=== PATIENT | female | born 1975 | race Hispanic/Latino ===

== ENCOUNTER 2025-02-16 17:09 | Emergency (ER) | payer SELFPAY ==
[2025-02-16 17:09] VITALS: BP 134/91; PULSE 93; RESP 18; TEMP 36.8; O2SAT 99; BMI 32.4
--- NOTE | 2025-02-16 17:43 | CT_ITS ---
PROCEDURE: ABDOMEN/PELVIS W IV CONT ONLY 02/16/2025 REASON FOR EXAM: ABDOMINAL PAIN TECHNIQUE: Procedure Code: [id number] Modality: CT Procedure: ABDOMEN/PELVIS W IV CONT ONLY Coronal and Sagittal reconstruction series were provided. CONTRAST: 100 mL of Isovue 370 One or more dose reduction techniques were used (e.g., Automated exposure control, adjustment of the mA and/or kV according to patient size, use of iterative reconstruction technique. RADIATION DOSE SUMMARY: DLP: 1220 mGycm COMPARISON: None FINDINGS: Limited sections of the lung bases demonstrate no focal pulmonary mass or consolidations. The liver, spleen, pancreas, and both adrenal glands demonstrate no acute findings. The gallbladder is surgically removed Tiny hiatal hernia; otherwise stomach is unremarkable.. The small bowel loops are not dilated. The appendix is normal. No colonic obstruction. There is no free air or significant free fluid. The kidneys are unremarkable. The urinary bladder is distended. The pelvic structures are intact. Right ovarian cyst measuring 1.7 x 1.5 cm. No significant lymphadenopathy. The aorta and IVC demonstrate no acute findings. Visualized osseous structures demonstrate no acute abnormality. CT/Abdomen/Pelvis W IV Cont ONLY IMPRESSION: No acute intra-abdominal process. Reading Location: -[id number]
--- NOTE | 2025-02-16 17:44 | EDS_ITS ---
HPI HPI - GI History of Present Illness Chief Complaint: Abd Pain Detail of Chief Complaint: Abdominal pain and dizziness Informant: patient Narrative Narrative: Patient presents with abdominal pain and dizziness. The abdominal pains been ongoing for about a year. She has not seen anybody for this. She has had prior cholecystectomy. The pain is in the upper abdomen anytime she eats or drinks. This morning she developed dizziness that she describes as a spinning sensation with nausea and vomiting and vomit about 8 times. Denies fever. Denies diarrhea. Denies falls or head injuries. She has a mild headache. No prior history of vertigo or dizziness like this. Patient speaks very little [place] but has person with her that translates. PFSH PFS Home Medications ?Medication ?Instructions ?Recorded ?Last Taken ?Type meclizine 25 mg tablet 25 mg PO TID PRN dizziness # 20 tabs 02/16/25 Unknown Rx omeprazole 40 mg capsule,delayed 40 mg PO DAILY #14 ca ps 02/16/25 Unknown Rx release Allergy/AdvReac Type Severity Reaction Status Date / Time No Known Allergies Allergy Verified 02/16/25 17:11 Surgical History (Updated 02/16/25 @ 18:11 by Kareem Brown) History of cholecystectomy Social History Smoking Status: Never smoker ROS ROS ED Review of Systems ROS Unobtainable: other Constitutional Constitutional ED: Reports lethargy; Denies chills, fever(s), sweats or weight loss Eyes Eyes: Denies blurry vision, change in vision or diplopia ENT ENT ED: Denies rhinorrhea or sore throat Cardiovascular Cardiovascular: Reports chest pain; Denies orthopnea or racing heartbeat Respiratory/Chest Respiratory/Chest: Denies cough, dyspnea, dyspnea on exertion, orthopnea or sputum Gastrointestinal Gastrointestinal: Reports abdominal pain, nausea and vomiting; Denies diarrhea Genitourinary Genitourinary ED: Denies dysuria, hematuria or urinary frequency Musculoskeletal Musculoskeletal: Denies arthralgias, back pain, myalgias or neck pain Integumentary Denies abscess, Abrasions or rash Neurologic Neurologic: Reports other Details: Dizziness ; Denies headache(s) or weakness Psychiatric Psychiatric: Denies anxiety, depression or suicidal thoughts Endocrine Endocrinology: Denies polydipsia, polyphagia or polyuria Hematologic/Lymphatic Hematologic/Lymphatic: Denies easy bleeding, easy bruising or lymphadenopathy Allergic/Immunologic Allergic/Immunologic ED: Denies mouth swelling, tongue swelling or urticaria EXAM Physical Exam Const Vital Signs: 02/16/25 17:09 02/16/25 19:09 02/16/25 21:00 Temperature 98.3 F Temperature Source Oral Pulse Rate 93 73 73 Respiratory Rate 18 18 16 Blood Pressure 134/91 H 130/62 H Blood Pressure Mean 105 84 Pulse Ox 99 99 99 Oxygen Delivery Method Room Air Room Air Positive well nourished and well developed General Appearance ED: well developed and NAD HEENT Reports TM's clear and moist mucous membranes normocephalic and atraumatic; Negative for trauma or tenderness Tympanic Membrane ED: Yes TM's clear Eyes PERRL and EOMs intact bilaterally General Eye ED: Negative for pale conjunctiva or scleral icterus Neck no lymphadenopathy, supple and no JVD General: Negative for tenderness Chest Wall inspection of chest normal and palpation of chest normal Chest: Negative for tenderness Resp normal respiratory effort and clear to auscultation bilaterally Effort and Inspection: Negative for respiratory distress or pain with movement Auscultation: Negative for rhonchi, wheezes or diminished lung sounds Cardio regular rate, regular rhythm, S1 normal heart sound, S2 normal heart sound and no murmurs Peripheral Pulses: pulses 2+ throughout GI normal to inspection, nondistended, normoactive bowel sounds, soft to palpation, non-distended and no masses GI Narrative: Tenderness to palpation over the epigastric region with some guarding. There is no rebound, rigidity, or peritoneal signs. No mass palpated. Back/Spine no CVA tenderness and no thoracic nor lumbar tenderness Extremity normal to inspection General Extremety ED: Negative for edema General Extremity: Negative for edema Neuro oriented x3, CN's II-XII intact bilaterally, no sensory deficits noted and gait normal Neuro Narrative: Positive Hallpike maneuver with head turn to the left with significant nystagmus. She became symptomatic with nausea and dry heaves Sensorium / Orientation: awake, alert, oriented to person, oriented to place and oriented to time Motor Exam: strength 5/5 throughout and strength abnormal Psych mental status grossly normal Skin no rashes or lesions noted and no wounds MDM MDM MDM Narrative Medical decision making narrative: Patient presents with 2 complaints 1 of abdominal pain ongoing for about a year. Also complains of dizziness that started today with head position. She has had some nausea with this. Clinically she looks well. Normal neurologic exam although she is positive on Hallpike maneuver with nystagmus. IV line established. CBC with differential obtained showing a 7.8 with hemoglobin 10.9 and platelet count of 518. Chemistries unremarkable. LFTs were normal. Lipase normal. Troponin less than 6. Urinalysis was normal. CT scan of the abdomen pelvis showed no acute process. While in department she received Antivert and Zofran and her vertigo resolved. At this point discussed results with patient and will refer to GI for follow-up. Will start on Prevacid. Will write a prescription for Antivert and discharged home in stable condition Lab Data Attestation: I reviewed the patient's lab results. Labs: Laboratory Results - last 24 hr 02/16/25 02/16/25 02/16/25 17:55 19:28 19:55 WBC 7.8 RBC 4.37 Hgb 10.9 L Hct 34.2 L MCV 78.3 L MCH 24.9 L MCHC 31.9 L RDW Std Deviation 41.5 RDW Coeff of Tiffanie 14.6 Plt Count 318 MPV 8.7 Immature Gran % (Auto) 0.400 Neut % (Auto) 71.0 H Lymph % (Auto) 23.6 [place] % (Auto) 4.5 Eos % (Auto) 0.1 Baso % (Auto) 0.4 Absolute Neuts (auto) 5.6 Absolute Lymphs (auto) 1.85 Nucleated RBC % 0 Sodium 138 Potassium 3.7 Chloride 103 Carbon Dioxide 24.2 Anion Gap 10 BUN 15 Creatinine 0.66 L Estim Creat Clear Calc 119.85 Est GFR (MDRD) Non-Af 109 BUN/Creatinine Ratio 22.1 H Glucose 104 H Lactic Acid < 1.0 Calcium 8.9 Total Bilirubin 0.76 AST 20 ALT 18 Alkaline Phosphatase 81 Troponin T High Sens < 6 Troponin T Hi Sens 2 Hr < 6 Total Protein 7.3 Albumin 4.2 Globulin 3.0 Albumin/Globulin Ratio 1.4 Lipase 33 Urine Color Yellow Urine Clarity Clear Urine pH 7.0 Ur Specific [place] 1.010 Urine Protein 15 H Urine Glucose (UA) Normal Urine Ketones 15 H Urine Occult Blood Negative Urine Nitrite Negative Urine Bilirubin Negative Urine Urobilinogen Normal Ur Leukocyte Esterase Negative Urine RBC 0 SEEN Urine WBC 0-5 SEEN Ur Squamous Epith Cells 0-5 SEEN Urine Bacteria 0 SEEN Urine Mucus 0 SEEN Radiography Diagnostic Testing: Clinical Impression(s) from Imaging Studies Abdomen/Pelvis CT 02/16/25 17:43 IMPRESSION: No acute intra-abdominal process. Reading [id number] Triage Chief Complaint: Abd Pain ED Provider: Omega Sparrow Dx/Rx/DC Orders Clinical Impression: Abdominal pain, BPV (benign positional vertigo) Instructions: ED Abdominal Pain Unkn Cause Fem, ED BPV Vertigo Prescriptions: New omeprazole 40 mg capsule,delayed release(DR/EC) 40 mg PO DAILY Qty: 14 0RF meclizine 25 mg tablet 25 mg PO TID PRN (Reason: dizziness) Qty: 20 0RF Primary Care Provider: Care Physician,No Primary Referrals: Gautam Brown MD [Med Staff - Shuttle Truck Driver] - 5-7 Days Abran Munoz DO [Med Staff - Active Staff] - 5-7 Days Care Physician,No Primary [Primary Care Provider] - Print Language: [place] Disposition Disposition: Home, Self Care
[2025-02-16 18:02] LABS: Hematocrit 34.2 % (37-47); Hemoglobin 10.9 g/dL (12.0-15.0); Immature Granulocytes Count 0.030 X10^3/uL (0.0-0.0); Mean Corp Hgb Conc 31.9 g/dL (32-36); Mean Corpuscular Volume 78.3 fL (81-99); Mean Platelet Vol. 8.7 fl (6.2-12.0); NRBC Flagged by Analyzer 0 % (0-5); Platelet Count 318 K/mm3 (150-450); RBC Distribution Width CV 14.6 % (11.6-14.6); RBC Distribution Width SD 41.5 fl (35.1-43.9); Red Blood Count 4.37 M/mm3 (4.2-5.4); White Blood Count 7.8 K/mm3 (4.4-11.0)
[2025-02-16] MEDS: 0.9% Normal Saline (1000mL) 1,000 ML 125 ML IV (18:12)
[2025-02-16 18:21] LABS: AST(SGOT) 20 U/L (<=31); Alanine Aminotransfer ALT/SGPT 18 U/L (<=34); Albumin, Serum 4.2 g/dL (3.5-5.0); Alkaline Phosphatase 81 U/L (35-104); Anion Gap 10 (5-15); BUN 15 mg/dL (4-19); BUN/Creat Ratio 22.1 RATIO (10-20); Calcium,Total 8.9 mg/dL (7.6-11.0); Carbon Dioxide 24.2 mmol/L (21.0-32.0); Chloride 103 mmol/L (98-108); Estimated Creatinine Clearance 119.85 ml/min (50-250); Globulin 3.0 g/dL (2.2-4.2); Glucose 104 mg/dL (70-99); Lipase 33 U/L (13-75); Potassium 3.7 mmol/L (3.3-5.1); Troponin T High Sensitivity < 6 ng/L (<=14)
[2025-02-16 19:09] VITALS: PULSE 73; RESP 18; O2SAT 99
[2025-02-16 19:35] LABS: Mucous, Urine 0 SEEN /hpf (<or=2+); Red Blood Cells-Urine 0 SEEN /hpf (0-5)
[2025-02-16 19:36] LABS: Color, Urine Yellow (Yellow); Glucose, Dipstick Normal (Normal); Ketone-Dipstick 15 mg/dl (Negative); Leukocyte Esterase-Dipstick Negative /ul (Negative); Nitrite-Dipstick Negative (Negative); Occult Blood-Urine Negative /ul (Negative); Protein-Dipstick 15 mg/dl (Negative); Specific Gravity, Urine 1.010 (1.002-1.030); Urine Bilirubin Dipstick Negative (Negative)
[2025-02-16 19:48] LABS: Squamous Epithelial Cells - UA 0-5 SEEN /hpf (5-10)
[2025-02-16 20:44] LABS: Troponin T High Sens 2 HR < 6 ng/L (<=14)
[2025-02-16 21:00] VITALS: BP 130/62; PULSE 73; RESP 16; O2SAT 99
[2025-02-16 21:43] VITALS: BP 108/74; PULSE 71; RESP 16; TEMP 36.6; O2SAT 99
== END 2025-02-16 21:44 | disposition home or self-care (01) ==
PROVIDERS: Emergency Provider Emergency Medicine; Visit Provider Emergency Medicine
DX: R10.9 Unspecified abdominal pain (principal); Z90.49 Acquired absence of other specified parts of digestive tract; R07.9 Chest pain, unspecified; H81.10 Benign paroxysmal vertigo, unspecified ear
CPT/HCPCS: 36415; 74177; 80053; 81001; 83605; 83690; 84484; 85025; 93005; 96361; 96374; 99283; Q9967; A4216; J2405

== ENCOUNTER 2025-03-31 06:20 | Day surgery (SDC) | payer SELFPAY ==
[2025-03-31] VITALS (7 sets, daily range): BP systolic 95–106; BP diastolic 71–75; PULSE 60–71; RESP 16–18; TEMP 36.4–36.7; O2SAT 98–100; BMI 31.3
--- OUTSIDE RECORDS SUMMARY | 2025-03-31 06:27 | XMS RPT_ITS | CCD ---
Author Organization [facility] Care Team Providers Care Signal Intelligence Analyst Name Role Phone Unavailable Primary Care Provider Unavailjeanne e Kiara SURVEY WORKER.ENVIRONMENTAL MONITORING TECHNICIAN, Js Primary Care Provider Kiara SURVEY WORKER.Js REYES Primary Care Provider ERIK AUGUSTIN Attending Unavayamilka labcrystal AUGUSTIN, ERIK NEMESIO Primary Care Unavai JS Ohara Referring Unavailable KNRJ, JS Primary Care Unavailable JS CRAIG Attending Unavailable JOHN, SPOKANE NEMESIO Referring Unavai lable JOHN, [facility] Primary Care Unavai labMAYRA Finney Attending Unavailable JOHN, ERIK NEMESIO Referring Unavai lable JOHN, SPOKANE NEMESIO Primary Care Unavai lable JS CRAIG Referring Unavailable KNRJ, JS Primary Care Unavailable KNJS DE LA ROSA Referring Unavailable KNOBLE, JS Primary Care Unavailable John DO, Cook Nemesio Primary Care Provid er Kiara SURVEY WORKER.Js REYES Unavailable Dr. Omega Sparrow DO Emergency Provider [phone] Care Physician, No Primary Primary Care Provider Unavailable Dr. Omega Sparrow DO Attending Physician Dr. Omega Sparrow DO Emergency Department Physici an Care Physician, No Primary Primary Care Physicia n Unavailable Care Physician, No Primary Referring Provider Un available Rivka Rondon Attending Physician Rivka Pedraza Attending Unavailable Care Physician, No Primary Primary Care Unava ilable Care Physician, No Primary Referring Unava ilable Care Physician, No Primary Primary Care Unava ilable Tammy, Abran Attending Unavailable Omega Sparrow Attending Unavailable Care Physician, No Primary Primary Care Unava ilable Medications Current Medications Medication Drug Class(es) Dates Sig (Normalized) Sig (Original) meclizine hydrochloride 25 mg oral tablet (2 sources) Antiemetic Start: 02-16-2025 take 1 tablet by mouth three times daily as needed for dizziness Naproxen (2 sources) Nonsteroidal Anti-inflammatory Drug NAPROXEN ORAL Take by mouth. Active omeprazole 40 mg delayed release oral capsule (8 sources) Proton Pump Inhibitor Start: 02-23-2024 End: 02-22-2025 take 1 capsule by mouth once daily Start: 06-20-2023 take 1 capsule by mo uth once daily before breakfast omeprazole (PRILOSEC) 20 mg capsule Indications: Gastroesophageal reflux disease without esophagitis Take 1 capsule by mouth daily before breakfast. 1/2 hr before meal. 90 capsule 06/20/2023 Active Comment on above: Take 1 capsule by mo uth daily before breakfast. 1/2 hr before meal. predniSONE 10 mg oral tablet (2 sources) Start: 02-23-2024 predniSONE (DELTASONE) 10 mg tablet Indications: Spinal stenosis of lumbar region without neurogenic claudication Take 3 tablets by mouth for 3 days, then take 2 tablets by mouth for 3 days, then take 1 tablet by mouth for 3 days. 18 tablet 02/23/2024 Active Completed/Discontinued Medications Medication Drug Class(es) Dates Sig (Normalized) Sig (Original) traMADol hydrochloride 50 mg oral tablet (1 source) Opioid Agonist Start: 02-23-2024 End: 03-01-2024 take 1 tablet by mouth every six hours as needed for pain traMADol (ULTRAM) 50 mg tablet Indications: DDD (degenerative disc disease), lumbar , Spinal stenosis of lumbar region without neurogenic claudication Take 1 tablet by mouth every 6 hours as needed for pain for up to 7 days. 20 tablet 02/23/2024 03/01/2024 Problems Active Problems Problem Classification Problem Date Documented Da te Episodic/Chronic Abdominal pain (3 sources) Abdominal pain; Translations: [Unspecified abdominal pain] Onset: 03-28-2025 02-16-2025 Episodic Conditions associated with dizziness or vertigo (2 sources) Benign paroxysmal positional vertigo; Translations: [Benign paroxysmal vertigo, unspecified ear] 02-16-2025 Episodic Esophageal disorders (5 sources) Gastro-esophageal reflux disease without esophagitis; Translations: [Gastroesophageal reflux disease without esophagitis] Onset: 06-20-2023 03-02-2024 Chronic Headache; including migraine (6 sources) Menstrual migraine; Translations: [Menstrual migraine, not intractable, without status migrainosus] Onset: 06-05-2018 06-05-2018 Chronic Nausea and vomiting (2 sources) Nausea; Translations: [Nausea] 03-04-2025 Episodic Other connective tissue disease (1 source) Pain of bilateral hands; Translations: [Pain in right hand] 01-17-2023 Episodic Other gastrointestinal disorders (1 source) Dysphagia, oral phase; Translations: [Oral phase dysphagia] Onset: 02-23-2024 Episodic Other gastrointestinal disorders (1 source) Oral phase dysphagia; Translations: [Dysphagia, oral phase] 02-23-2024 Episodic Other gastrointestinal disorders (2 sources) Heartburn; Translations: [Heartburn] 03-04-2025 Episodic Other nervous system disorders (1 source) Paresthesia of lower extremity; Translations: [Anesthesia of skin] 06-20-2023 Episodic Other nervous system disorders (1 source) Paresthesia of upper limb; Translations: [Anesthesia of skin] 06-20-2023 Episodic Other nutritional; endocrine; and metabolic disorders (1 source) Obesity, unspecified; Translations: [Class 1 obesity with body mass index (BMI) of 32.0 to 32.9 in adult, unspecified obesity type, unspecified whether serious comorbidity present] Onset: 02-23-2024 Chronic Other nutritional; endocrine; and metabolic disorders (1 source) Body mass index (BMI) 32.0-32.9, adult; Translations: [Class 1 obesity with body mass index (BMI) of 32.0 to 32.9 in adult, unspecified obesity type, unspecified whether serious comorbidity present] Onset: 02-23-2024 Chronic Other nutritional; endocrine; and metabolic disorders (1 source) Obesity; Translations: [Obesity, unspecified] 02-23-2024 Chronic Other screening for suspected conditions (not mental disorders or infectious disease) (18 sources) Patient encounter status; Translations: [Encounter for screening mammogram for malignant neoplasm of breast] Onset: 06-20-2023 06-25-2023 Episodic Spondylosis; intervertebral disc disorders; other back problems (4 sources) Other intervertebral disc degeneration, lumbar region; Translations: [Degeneration of lumbar intervertebral disc] Onset: 02-23-2024 03-02-2024 Chronic Spondylosis; intervertebral disc disorders; other back problems (16 sources) Chronic low back pain; Translations: [Lumbago with sciatica, right side] Onset: 03-31-2018 03-31-2018 Episodic Varicose veins of lower extremity (5 sources) Pain co-occurrent and due to varicose veins of right leg; Translations: [Varicose veins of right lower extremity with pain] Onset: 02-23-2024 01-17-2023 Episodic Past or Other Problems Problem Classification Problem Date Documented Da te Episodic/Chronic Immunizations and screening for infectious disease (1 source) Encounter for immunization; Translations: [Encounter for immunization] Onset: 06-20-2023 Episodic Other aftercare (1 source) Other assessment services manager (current) drug therapy; Translations: [Medication management] Onset: 06-20-2023 Episodic Other nervous system disorders (2 sources) Anesthesia of skin; Translations: [Numbness and tingling of both legs] Onset: 06-20-2023 Episodic Other nervous system disorders (2 sources) Paresthesia of skin; Translations: [Numbness and tingling of both legs] Onset: 06-20-2023 Episodic Results Test Name Value Interpretation Reference Range Facility Gastroenterology Visit Repor ton 03-04-2025 Gastroenterology Visit Report [facility] [address] [place] [address] OFFICE VISIT Date of Service: 03/04/25 MR#: [id number] Acct: [id number] Name: JERROD CUMMINGS Rep #: [id number] : 1975 Provider: KATHLEEN Toussaint Age/Sex: 49/F Location: [facility] Status: Signed Intake Vital Signs 02/16/25 17:09 Height 5 ft 6 in Intake Visit Reasons: [facility] ER 02/16 ABD PAIN Chief Complaint: Epigastric pain Allergies No Known Allergies Allergy (Verified 03/04/25 11:49) Medications ???Medication ???Instructions ???Recorded ???Confirmed ???Type meclizine 25 mg tablet 25 mg PO TID PRN dizziness #20 tab s 02/16/25 03/04/25 Rx omeprazole 40 mg capsule,delayed 40 mg PO DAILY #14 caps 02/16/25 0 03/04/25 Rx release Nurse's Note: Nausea mostly after breakfast and constipated sometimes. [facility] Surgical History (Updated 02/17/25 @ 10:24 by Carlie Castrejon) History of cholecystectomy Social History (System 02/17/25 @ 10:24 by Carlie Castrejon) Smoking Status: Never smoker HPI HPI Chief Complaint: Epigastric pain Details: JERROD NUNO, is a 49 F who presents to the office today for establishment. [facility] ED 02.16.25 for abdominal pain and dizziness for a year. Pain is worse with eating or drinking. CBC and CMP unremarkable. LFTs and lipase normal. CT abdomen pelvis with no acute process. Discharged and started on Prevacid. OV 03.04.25 patient continues to have epigastric pain that is daily. Pain is burning and is not worse with oral intake. Patient does not feel that omeprazole has been helpful. Nausea has improved. She has never had an EGD or colonoscopy. Patient was scheduled for screening colonoscopy at 1 point but no one told her to the prep so she could have it done. ROS Const Constitutional: No anorexia, fatigue, fever(s), weight change or sleep problems Eyes Eyes: No change in vision ENT ENT: No abnormal hearing, difficulty swallowing, mouth lesions, tongue swelling or throat swelling Resp Respiratory: No cough or shortness of breath Cardio Cardiology: No chest pain at rest, chest pain with exertion, shortness of breath or dyspnea on exertion Gastro GI: Positive for abdominal pain, heartburn and nausea/dyspepsia; No difficulty swallowing Genitourinary-Female : No difficulty urinating or burning urination Musc Musculoskeletal: No joint pain, joint swelling, muscle weakness or decreased muscle mass Skin Skin: No hair loss in leg, yellowing of the eye, itchy eyes, rash, skin ulcer or skin swelling Neuro Neurology: No abnormal hearing, abnormal movements, confusion, unsteady gait/balance or memory loss Psych Psychiatric: No anxiety, No confusion and No memory loss Endo Endocrine: No fatigue or weight change Aller/Imm Allergy/Immunologic: No itchy eyes, throat swelling or tongue swelling Lalito/Lymp Hematologic/Lymphati c: No easy bleeding, easy bruising or enlarged lymph nodes Exam Const General: cooperative, healthy appearing and comfortable Nutritional Appearance: average body habitus Orientation: alert [facility] Head: normal to inspection Ears: hearing grossly normal bilaterally Nose: external nose normal Eyes General: appearance normal, both eyes and all related structures Neck Neck: normal visual inspection Chest Chest palpation inspection: normal inspection of the chest Resp Effort Inspection: normal respiratory effort Cardio Rate: regular rate Rhythm: regular rhythm GI Inspection: normal to inspection Auscultation: normal bowel sounds Palpation: soft and nontender Assessment and Plan Assessment and Plan (1) Heartburn: Status: Acute Plan: jerrod is a 49-year-old Emirati-speaking patient here today for evaluation of epigastric pain. Patient presented to [facility] ED for epigastric pain and vertigo. Workup was largely unremarkable. CT abdomen pelvis without acute processes. She was started on omeprazole. Patient continues to have epigastric pain that is burning and constant. She notes that prior to her ED visit she had seen other doctors who treated her with medications for her pain. Medications have not been helpful. Patient will undergo EGD to evaluate her upper GI tract. Patient has never had a screening colonoscopy. She notes that she was scheduled for 1 in the past but did not know she had to do a prep so they could not do it. She was scheduled for both of these procedures today. - EGD - Colonoscopy - Follow-up after procedures (2) Nausea: Status: Acute (3) Encounter for screening colonoscopy: Status: Acute Coding Level of Care Code Off vis,new,level 3 Diagnoses Heartburn R12 Nausea R11.0 Encounter for screening colonoscopy Z12.11 03/04/25 1221 Date (more content not included)... Normal [facility] Abdomen/Pelvis W IV Cont ONL Yon 02-16-2025 Abdomen/Pelvis W IV Cont ONLY [facility] Services [address] [place] [address] [id number] Abdomen/Pelvis W IV Cont ONLY MR#: [id number] Acct: [id number] Name: JERROD CUMMINGS Rep #: [id number] : 1975 F 49 From: Shingo Kihira M D PCP: Care Physician,No Primary Status: DEP ER Study: Abdomen/Pelvis W IV Cont ONLY Date of Exam: Exam# [id number] Ordering Dr: Omega Sparrow DO PROCEDURE: ABDOMEN/PELVIS W IV CONT ONLY 02/16/2025 REASON FOR EXAM: ABDOMINAL PAIN TECHNIQUE: Procedure Code: [id number] Modality: CT Procedure: ABDOMEN/PELVIS W IV CONT ONLY Coronal and Sagittal reconstruction series were provided. CONTRAST: 100 mL of Isovue 370 One or more dose reduction techniques were used (e.g., Automated exposure control, adjustment of the mA and/or kV according to patient size, use of iterative reconstruction technique. RADIATION DOSE SUMMARY: DLP: 1220 mGycm COMPARISON: None FINDINGS: Limited sections of the lung bases demonstrate no focal pulmonary mass or consolidations. The liver, spleen, pancreas, and both adrenal glands demonstrate no acute findings. The gallbladder is surgically removed Tiny hiatal hernia; otherwise stomach is unremarkable.. The small bowel loops are not dilated. The appendix is normal. No colonic obstruction. There is no free air or significant free fluid. The kidneys are unremarkable. The urinary bladder is distended. The pelvic structures are intact. Right ovarian cyst measuring 1.7 x 1.5 cm. No significant lymphadenopathy. The aorta and IVC demonstrate no acute findings. Visualized osseous structures demonstrate no acute abnormality. CT/Abdomen/Pelvis W IV Cont ONLY IMPRESSION: No acute intra-abdominal process. [id number] CC: Dr. Omega Sparrow DO; No Primary Care Physician Corner Cutter Machine Operator: Signed Normal [facility] Absolute lymphocyte countOrd ered By: Omega Sparrow on 02-16-2025 Lymphocytes Auto (Unsp spec) [#/Vol] 1.85 10*3/uL 0.83-4.51 [facility] Absolute neutrophil countOrd ered By: Omega Sparrow on 02-16-2025 Neutrophils (Bld) [#/Vol] 5.6 10*3/uL 2.0-7.7 [facility] Anion gap in Serum or Plasma Ordered By: Omega Sparrow on 02-16-2025 Anion gap [Moles/Vol] 10 mmol/L 5-[address] [facility] Automated lymphocyte count a s percentage of total leukocytesOrdered By: Padminius Sparrow on 02-16-2025 Lymphocytes/100 WBC Auto (Unsp spec) 23.6 % 19-41 [facility] BUN/creatinine ratioOrdered By: Remus Kyara on 02-16-2025 Urea nitrogen/Creatinine [Mass ratio] 22.1 mg/mg High 10-20 [facility] Basophil percentageOrdered B y: Remus Sparrow on 02-16-2025 Basophils/100 WBC (Bld) 0.4 % 0-1 [facility] Bilirubin Test strip Ql (U)O rdered By: Omega Sparrow on 02-16-2025 Bilirubin Ql (U) Negative Negative [facility] Bilirubin, totalOrdered By: Padminius Sparrow on 02-16-2025 Bilirubin [Mass/Vol] 0.76 mg/dL 0.00-1.30 [facility] CBC W/Diff, Automatedon 02-07 Absolute Lymph 1.85 X10 3/uL Normal 0.83-4.51 [facility] Comment on above: Performed By: #### L 501.2450, L500.4050, L100.0100, L501.4021, L503.6005 #### [facility] [address] [place], [address] Absolute Neut 5.6 X10 3/uL Normal 2.0-7.7 [facility] Comment on above: Performed By: #### L 501.2450, L500.4050, L100.0100, L501.4021, L503.6005 #### [facility] [address] [place], [address] Basophils/100 WBC (Bld) 0.4 % Normal 0-1 [facility] Comment on above: Performed By: #### L 501.2450, L500.4050, L100.0100, L501.4021, L503.6005 #### [facility] [address] [place], [address] Eosinophils/100 WBC (Bld) 0.1 % Normal 0-5 [facility] Comment on above: Performed By: #### L 501.2450, L500.4050, L100.0100, L501.4021, L503.6005 #### [facility] [address] [place], [address] Erythrocyte distribution width (RBC) [Ratio] 14.6 % Normal 11.6-14.6 [facility] Comment on above: Performed By: #### L 501.2450, L500.4050, L100.0100, L501.4021, L503.6005 #### [facility] [address] [place], [address] Hematocrit (Bld) [Volume fraction] 34.2 % Low 37-47 [facility] Comment on above: Performed By: #### L 501.2450, L500.4050, L100.0100, L501.4021, L503.6005 #### [facility] [address] [place], [address] Hemoglobin (Bld) [Mass/Vol] 10.9 g/dL Low 12.0-15.0 [facility] Comment on above: Performed By: #### L 501.2450, L500.4050, L100.0100, L501.4021, L503.6005 #### [facility] [address] [place], [address] IG% 0.400 Normal 0.0-0.9 [facility] Comment on above: Result Comment: IG% - Immature Granulocytes (promyelocytes, myelocytes and metamyelocytes) > 1% indicates that a LEFT SHIFT is Present. Performed By: #### L 501.2450, L500.4050, L100.0100, L501.4021, L503.6005 #### [facility] [address] [place], [address] Lymphocytes/100 WBC (Bld) 23.6 % Normal 19-41 [facility] Comment on above: Performed By: #### L 501.2450, L500.4050, L100.0100, L501.4021, L503.6005 #### [facility] [address] [place], [address] MCH (RBC) [Entitic mass] 24.9 pg Low 27.0-32.0 [facility] Comment on above: Performed By: #### L 501.2450, L500.4050, L100.0100, L501.4021, L503.6005 #### [facility] [address] [place], [address] MCHC (RBC) [Mass/Vol] 31.9 g/dL Low 32-[address] [facility] Comment on above: Performed By: #### L 501.2450, L500.4050, L100.0100, L501.4021, L503.6005 #### [facility] [address] [place], [address] MCV (RBC) [Entitic vol] 78.3 fL Low 81-99 [facility] Comment on above: Performed By: #### L 501.2450, L500.4050, L100.0100, L501.4021, L503.6005 #### [facility] [address] [place], [address] Monocytes/100 WBC (Bld) 4.5 % Normal 0-10 [facility] Comment on above: Performed By: #### L 501.2450, L500.4050, L100.0100, L501.4021, L503.6005 #### [facility] [address] [place], [address] Neutrophils/100 WBC (Bld) 71.0 % High 47-70 [facility] Comment on above: Performed By: #### L 501.2450, L500.4050, L100.0100, L501.4021, L503.6005 #### [facility] [address] [place], [address] Nucleated RBC (Bld) [#/Vol] 0 10*3/uL Normal 0-5 [facility] Comment on above: Performed By: #### L 501.2450, L500.4050, L100.0100, L501.4021, L503.6005 #### [facility] [address] [place], [address] Platelet mean volume (Bld) [Entitic vol] 8.7 fL Normal 6.2-12.0 [facility] Comment on above: Performed By: #### L 501.2450, L500.4050, L100.0100, L501.4021, L503.6005 #### [facility] [address] [place], [address] Platelets (Bld) [#/Vol] 318 10*3/uL Normal 150-450 [facility] Comment on above: Performed By: #### L 501.2450, L500.4050, L100.0100, L501.4021, L503.6005 #### [facility] [address] [place], [address] RBC (Bld) [#/Vol] 4.37 10*6/uL Normal 4.2-5.[address] [facility] Comment on above: Performed By: #### L 501.2450, L500.4050, L100.0100, L501.4021, L503.6005 #### [facility] [address] [place], [address] RDW SD 41.5 fl Normal 35.1-43.9 [facility] Comment on above: Performed By: #### L 501.2450, L500.4050, L100.0100, L501.4021, L503.6005 #### [facility] [address] [place], [address] WBC (Bld) [#/Vol] 7.8 10*3/uL Normal 4.4-11.0 [facility] Comment on above: Performed By: #### L 501.2450, L500.4050, L100.0100, L501.4021, L503.6005 #### [facility] [address] [place], [address] Carbon dioxide, total [Moles /volume] in Central venous bloodOrdered By: Remus Kyara on 02-16-2025 CO2 [Moles/Vol] 24.2 mmol/L 21.0-32.0 [facility] Chloride assayOrdered By: Re judith Sparrow on 02-16-2025 Chloride [Moles/Vol] 103 mmol/L 98-108 [facility] Comprehensive Metabolic Prof ilon 02-16-2025 Albumin [Mass/Vol] 4.2 g/dL Normal 3.5-5.0 [facility] Comment on above: Performed By: #### L 501.2450, L500.4050, L100.0100, L501.4021, L503.6005 #### [facility] [address] [place], [address] Albumin/Globulin [Mass ratio] 1.4 {ratio} Normal 0.9-2.4 [facility] Comment on above: Performed By: #### L 501.2450, L500.4050, L100.0100, L501.4021, L503.6005 #### [facility] [address] [place], [address] ALK PHOS 81 U/L Normal 35-104 [facility] Comment on above: Performed By: #### L 501.2450, L500.4050, L100.0100, L501.4021, L503.6005 #### [facility] [address] [place], [address] ALT [Catalytic activity/Vol] 18 U/L Normal <=34 [facility] Comment on above: Performed By: #### L 501.2450, L500.4050, L100.0100, L501.4021, L503.6005 #### [facility] [address] [place], [address] AST [Catalytic activity/Vol] 20 U/L Normal <=31 [facility] Comment on above: Performed By: #### L 501.2450, L500.4050, L100.0100, L501.4021, L503.6005 #### [facility] [address] [place], [address] Bilirubin [Mass/Vol] 0.76 mg/dL Normal 0.00-1.30 [facility] Comment on above: Performed By: #### L 501.2450, L500.4050, L100.0100, L501.4021, L503.6005 #### [facility] [address] [place], [address] BUN/CRE 22.1 RATIO High 10-20 [facility] Comment on above: Performed By: #### L 501.2450, L500.4050, L100.0100, L501.4021, L503.6005 #### [facility] [address] [place], [address] Calcium [Mass/Vol] 8.9 mg/dL Normal 7.6-11.0 [facility] Comment on above: Performed By: #### L 501.2450, L500.4050, L100.0100, L501.4021, L503.6005 #### [facility] [address] [place], [address] Chloride [Moles/Vol] 103 mmol/L Normal 98-108 [facility] Comment on above: Performed By: #### L 501.2450, L500.4050, L100.0100, L501.4021, L503.6005 #### [facility] [address] [place], [address] CO2 [Moles/Vol] 24.2 mmol/L Normal 21.0-32.0 [facility] Comment on above: Performed By: #### L 501.2450, L500.4050, L100.0100, L501.4021, L503.6005 #### [facility] [address] [place], [address] Creatinine [Mass/Vol] 0.66 mg/dL Low 0.70-1.[address] [facility] Comment on above: Performed By: #### L 501.2450, L500.4050, L100.0100, L501.4021, L503.6005 #### [facility] [address] [place], [address] ECRCL 119.85 ml/min Normal 50-250 [facility] Comment on above: Performed By: #### L 501.2450, L500.4050, L100.0100, L501.4021, L503.6005 #### [facility] [address] [place], [address] GAP 10 Normal 5-15 [facility] Comment on above: Performed By: #### L 501.2450, L500.4050, L100.0100, L501.4021, L503.6005 #### [facility] [address] [place], [address] GFR/1.73 sq M.predicted among non-blacks MDRD (S/P/Bld) [Vol rate/Area] 109 mL/min/{1.73_m2} Normal >60 [facility] Comment on above: Result Comment: mL/m in/1.73m2 CKD-EPI Creatinine Equation (2020) Performed By: #### L 501.2450, L500.4050, L100.0100, L501.4021, L503.6005 #### [facility] [address] [place], [address] Globulin (S) [Mass/Vol] 3.0 g/dL Normal 2.2-4.2 [facility] [place] Comment on above: Performed By: #### L 501.2450, L500.4050, L100.0100, L501.4021, L503.6005 #### [facility] [address] [place], [address] Glucose [Mass/Vol] 104 mg/dL High 70-99 [facility] Comment on above: Performed By: #### L 501.2450, L500.4050, L100.0100, L501.4021, L503.6005 #### [facility] [address] [place], [address] Potassium [Moles/Vol] 3.7 mmol/L Normal 3.3-5.[address] [facility] Comment on above: Performed By: #### L 501.2450, L500.4050, L100.0100, L501.4021, L503.6005 #### [facility] [address] [place], [address] Sodium [Moles/Vol] 138 mmol/L Normal 133-145 [facility] Comment on above: Performed By: #### L 501.2450, L500.4050, L100.0100, L501.4021, L503.6005 #### [facility] [address] [place], [address] T PROT 7.3 g/dL Normal 5.9-8.4 [facility] Comment on above: Performed By: #### L 501.2450, L500.4050, L100.0100, L501.4021, L503.6005 #### [facility] [address] [place], [address] Urea nitrogen [Mass/Vol] 15 mg/dL Normal 4-19 [facility] Comment on above: Performed By: #### L 501.2450, L500.4050, L100.0100, L501.4021, L503.6005 #### [facility] [address] [place], [address] Emergency Department Summary on 02-16-2025 Emergency Department Summary [facility] Medical Records Department [address] [place] [address] Emergency Department Summary 02/16/25 MR#: [id number] Acct: [id number] Name: JERROD CUMMINGS Rep #: [id number] : 1975 49 From: Omega Sparrow DO PCP: Care Physician,No Primary Status:DEP ER Location: ED HPI HPI - GI History of Present Illness Chief Complaint: Abd Pain Detail of Chief Complaint: Abdominal pain and dizziness Informant: patient Narrative Narrative: Patient presents with abdominal pain and dizziness. The abdominal pains been ongoing for about a year. She has not seen anybody for this. She has had prior cholecystectomy. The pain is in the upper abdomen anytime she eats or drinks. This morning she developed dizziness that she describes as a spinning sensation with nausea and vomiting and vomit about 8 times. Denies fever. Denies diarrhea. Denies falls or head injuries. She has a mild headache. No prior history of vertigo or dizziness like this. Patient speaks very little [place] but has person with her that translates. [facility] Home Medications ???Medication ???Instructions ???Recorded ???Last Taken ???Type meclizine 25 mg tablet 25 mg PO TID PRN dizziness #20 tab s 02/16/25 Unknown Rx omeprazole 40 mg capsule,delayed 40 mg PO DAILY #14 caps 02/16/25 U nknown Rx release Allergy/AdvReac Type Severity Reaction Status Date / Time No Known Allergies Allergy Verified 02/16/25 17:11 Surgical History (Updated 02/16/25 @ 18:11 by Kareem Brown) History of cholecystectomy Social History Smoking Status: Never smoker ROS ROS ED Review of Systems ROS Unobtainable: other Constitutional Constitutional ED: Reports lethargy; Denies chills, fever(s), sweats or weight loss Eyes Eyes: Denies blurry vision, change in vision or diplopia ENT ENT ED: Denies rhinorrhea or sore throat Cardiovascular Cardiovascular: Reports chest pain; Denies orthopnea or racing heartbeat Respiratory/Chest Respiratory/Chest: Denies cough, dyspnea, dyspnea on exertion, orthopnea or sputum Gastrointestinal Gastrointestinal: Reports abdominal pain, nausea and vomiting; Denies diarrhea Genitourinary Genitourinary ED: Denies dysuria, hematuria or urinary frequency Musculoskeletal Musculoskeletal: Denies arthralgias, back pain, myalgias or neck pain Integumentary Denies abscess, Abrasions or rash Neurologic Neurologic: Reports other Details: Dizziness ; Denies headache(s) or weakness Psychiatric Psychiatric: Denies anxiety, depression or suicidal thoughts Endocrine Endocrinology: Denies polydipsia, polyphagia or polyuria Hematologic/Lymphati c Hematologic/Lymphati c: Denies easy bleeding, easy bruising or lymphadenopathy Allergic/Immunologic Allergic/Immunologic ED: Denies mouth swelling, tongue swelling or urticaria EXAM Physical Exam Const Vital Signs: 02/16/25 17:09 02/16/25 19:09 02/16/25 21:00 Temperature 98.3 F Temperature Source Oral Pulse Rate 93 73 73 Respiratory Rate 18 18 16 Blood Pressure 134/91 H 130/62 H Blood Pressure Mean 105 84 Pulse Ox 99 99 99 Oxygen Delivery Method Room Air Room Air Positive well nourished and well developed General Appearance ED: well developed and NAD HEENT Reports TM's clear and moist mucous membranes normocephalic and atraumatic; Negative for trauma or tenderness Tympanic Membrane ED: Yes TM's clear Eyes PERRL and EOMs intact bilaterally General Eye ED: Negative for pale conjunctiva or scleral icterus Neck no lymphadenopathy, supple and no JVD General: Negative for tenderness Chest Wall inspection of chest normal and palpation of chest normal Chest: Negative for tenderness Resp normal respiratory effort and clear to auscultation bilaterally Effort and Inspection: Negative for respiratory distress or pain with movement Auscultation: Negative for rhonchi, wheezes or diminished lung sounds Cardio regular rate, regular rhythm, S1 normal heart sound, S2 normal heart sound and no murmurs Peripheral Pulses: pulses 2+ throughout GI normal to inspection, nondistended, normoactive bowel sounds, soft to palpation, non-distended and no masses GI Narrative: Tenderness to palpation over the epigastric region with some guarding. There is no rebound, rigidity, or peritoneal signs. No mass palpated. Back/Spine no CVA tenderness and no thoracic nor lumbar tenderness Extremity normal to inspection General Extremety ED: Negative for edema General Extremity: Negative for edema Neuro oriented x3, CN's II-XII intact bilaterally, no sensory deficits noted and gait normal Neuro Narrative: Positive Hallpike maneuver with head turn to the left with significant nystagmus. She became symptomatic with nausea and dry heaves Sensorium / Orientation: awake, alert, orient (more content not included)... Normal [facility] Eosinophil percentageOrdered By: Omega Sparrow on 02-16-2025 Eosinophils/100 WBC (Bld) 0.1 % 0-5 [facility] Erythrocyte distribution wid th ratioOrdered By: Omega Sparrow on 02-16-2025 Erythrocyte distribution width (RBC) [Ratio] 14.6 % 11.6-14.6 [facility] Erythrocyte distribution wid th standard deviationOrdered By: Omega Sparrow on 02-16-2025 Erythrocyte distribution width (RBC) [Ratio] 41.5 fl 35.1-43.9 [facility] Glomerular filtration rate ( GFR) estimation/1.73 sq m using serum, plasma, or whole bOrdered By: Omega Sparrow on 02-16-2025 GFR/1.73 sq M.predicted among non-blacks MDRD (S/P/Bld) [Vol rate/Area] 109 mL/min/{1.73_m2} >60 [facility] Comment on above: mL/min/1.73m2 CKD-EP I Creatinine Equation (2020) Hematocrit Auto (Bld) [Volum e fraction]Ordered By: Omega Sparrow on 02-16-2025 Hematocrit (Bld) [Volume fraction] 34.2 % Low 37-47 [facility] Hemoglobin measurementOrdere d By: Omega Sparrow on 02-16-2025 Hemoglobin (Bld) [Mass/Vol] 10.9 g/dL Low 12.0-15.0 [facility] Immature granulocytes/100 WB C Auto (Bld)Ordered By: Omega Sparrow on 02-16-2025 Immature granulocytes/100 WBC (Bld) 0.400 % 0.0-0.9 [facility] Comment on above: IG% - Immature Granu locytes (promyelocytes, myelocytes and metamyelocytes) > 1% indicates that a LEFT SHIFT is Present. Ketones Test strip Ql (U)Ord ered By: Omega Sparrow on 02-16-2025 Ketones Ql (U) 15 mg/dl High Negative [facility] L501.4021on 02-16-2025 Trop T High Sen < 6 Normal <=14 [facility] Comment on above: Performed By: #### L 501.2450, L500.4050, L100.0100, L501.4021, L503.6005 #### [facility] [address] [place], [place], [address] Laboratory - Chemistry and C hemistry - challengeOrdered By: Omega Sparrow on 02-16-2025 AST [Catalytic activity/Vol] 20 U/L <32 [facility] Lactic Acidon 02-16-2025 Lactate [Moles/Vol] mmol/L Normal 0.0-2.[address] [facility] Comment on above: Order Comment: Y Performed By: #### L 501.2450, L500.4050, L100.0100, L501.4021, L503.6005 #### [facility] [address] [place], [place], [address] Lactic acid measurementOrder ed By: Omega Sparrow on 02-16-2025 Lactate [Moles/Vol] mmol/L 0.0-2.[address] [facility] Lipaseon 02-16-2025 Lipase [Catalytic activity/Vol] 33 U/L Normal 13-75 [facility] Comment on above: Result Comment: Martine mcfarland note: LIPASE revised reference range effective 22. New Lipase methodology. Expected to produce lower values than the previous assay method. NEW Reference Range: 13 - 75 U/L Performed By: #### L 501.2450, L500.4050, L100.0100, L501.4021, L503.6005 #### [facility] [place], [address] Lipase measurementOrdered By : Omega Sparrow on 02-16-2025 Lipase [Catalytic activity/Vol] 33 U/L 13-75 [facility] Comment on above: Please note:LIPASE r evised reference range effective 22. New Lipase methodology. Expected to produce lower values than the previous assay method. NEW Reference Range: 13 - 75 U/L MCV (mean corpuscular volume ) determinationOrdered By: Omega Sparrow on 02-16-2025 MCV (RBC) [Entitic vol] 78.3 fL Low 81-99 [facility] Mean corpuscular hemoglobin (MCH) determinationOrdered By: Omega Sparrow on 02-16-2025 MCH (RBC) [Entitic mass] 24.9 pg Low 27.0-32.0 [facility] Mean corpuscular hemoglobin concentration (MCHC) determinationOrdered By: Omega Sparrow on 02-16-2025 MCHC (RBC) [Mass/Vol] 31.9 g/dL Low 32-[address] [facility] Mean platelet volume determi nationOrdered By: Omega Sparrow on 02-16-2025 Platelet mean volume (Bld) [Entitic vol] 8.7 fL 6.2-12.0 [facility] Microscopic analysis of urin e for red blood cells (RBC)Ordered By: Omega Sparrow on 02-16-2025 Microscopic analysis of urine for red blood cells (RBC) 0 SEEN /hpf 0-5 [facility] Monocyte percentageOrdered B y: Omega Sparrow on 02-16-2025 Monocytes/100 WBC (Bld) 4.5 % 0-10 [facility] Mucus LM Ql (Urine sed)Order ed By: Omega Sparrow on 02-16-2025 Mucus Ql (Urine sed) 0 SEEN /hpf [facility] Neutrophil percentageOrdered By: Omega Sparrow on 02-16-2025 Neutrophils/100 WBC (Bld) 71.0 % High 47-70 [facility] Nitrite Test strip Ql (U)Ord ered By: Omega Sparrow on 02-16-2025 Nitrite Ql (U) Negative Negative [facility] Nucleated red blood cell per centageOrdered By: Omega Sparrow on 02-16-2025 Nucleated RBC/100 WBC (Bld) [Ratio] 0 % 0-5 [facility] Platelet countOrdered By: Jyotsna Sparrow on 02-16-2025 Platelets (Bld) [#/Vol] 318 10*3/uL 150-450 [facility] Potassium measurement (mass/ volume)Ordered By: Omega Sparrow on 02-16-2025 Potassium (Unsp spec) [Mass/Vol] 3.7 mmol/L 3.3-5.1 [facility] Protein Test strip Ql (U)Ord ered By: Omega Sparrow on 02-16-2025 Protein Ql (U) 15 mg/dl High Negative [facility] RBC Auto (Bld) [#/Vol]Ordere d By: Omega Sparrow on 02-16-2025 RBC (Bld) [#/Vol] 4.37 10*6/uL 4.2-5.[address] [facility] Serum creatinine measurement (mass/volume)Ordered By: Omega Sparrow on 02-16-2025 Creatinine [Mass/Vol] 0.66 mg/dL Low 0.70-1.[address] [facility] Serum globulin measurementOr dered By: Omega Sparrow on 02-16-2025 Globulin (S) [Mass/Vol] 3.0 g/dL 2.2-4.2 [facility] Serum glucose measurement (m ass/volume)Ordered By: Omega Sparrow on 02-16-2025 Glucose [Mass/Vol] 104 mg/dL High 70-99 [facility] Serum or plasma alanine rodriguez otransferase (ALT) measurementOrdered By: Omega Sparrow on 02-16-2025 ALT [Catalytic activity/Vol] 18 U/L <35 [facility] Serum or plasma albumin srinivas urement (mass/volume)Ordered By: Omega Sparrow on 02-16-2025 Albumin [Mass/Vol] 4.2 g/dL 3.5-5.0 [facility] Serum or plasma albumin/glob ulin mass ratioOrdered By: Omega Sparrow on 02-16-2025 Albumin/Globulin [Mass ratio] 1.4 {ratio} 0.9-2.4 [facility] Serum or plasma alkaline tiffany sphatase measurementOrdered By: Omega Kyara on 02-16-2025 ALP [Catalytic activity/Vol] 81 U/L 35-104 [facility] Serum or plasma calcium srinivas urement (mass/volume)Ordered By: Remus Ungmark on 02-16-2025 Calcium [Mass/Vol] 8.9 mg/dL 7.6-11.0 [facility] Serum or plasma urea nitroge n measurement (mass/volume)Ordered By: Remus Ungmark on 02-16-2025 Urea nitrogen [Mass/Vol] 15 mg/dL 4-19 [facility] Sodium levelOrdered By: Padminiu s Kyara on 02-16-2025 Sodium [Moles/Vol] 138 mmol/L 133-145 [facility] Squamous epithelial cells de tection in urine sediment by light microscopyOrdered By: Omega Kyara on 02-16-2025 Epithelial cells.squamous LM Ql (Urine sed) 0-5 SEEN /hpf -10 [facility] Total proteinOrdered By: Rem us Kyara on 02-16-2025 Protein [Mass/Vol] 7.3 g/dL 5.9-8.4 [facility] Troponin T HS 2 HRon 025 Trop T High Sen < 6 Normal <=14 [facility] Comment on above: Performed By: #### L 499.0042 #### [facility] [address] [place], [place], [id number] Troponin T HS 4 HRon 025 Trop T High Sen Normal <=14 [facility] Comment on above: Result Comment: NO S PECIMEN COLLECTED. PATIENT DEPARTED ED. Performed By: #### L 499.0043 #### [facility] [address] [place], [place], [address] Troponin T.cardiac [Mass/vol ume] in Serum or Plasma by High sensitivity methodOrdered By: Rem Kyara on 02-16-2025 Troponin T.cardiac High sensitivity method [Mass/Vol] < 6 ng/L <14 [facility] Troponin T.cardiac High sensitivity method [Mass/Vol] < 6 ng/L <14 [facility] Urinalysis, Completeon 02-16 EPI,SQUAMOUS 0-5 SEEN Normal 5-10 [facility] Comment on above: Order Comment: CLEAN CATCH Performed By: #### L 400.0001 #### [facility] [address] [place], [address] WBC 0-5 SEEN Normal 0-5 [facility] Comment on above: Order Comment: CLEAN CATCH Performed By: #### L 400.0001 #### [facility] [address] [place], [address] BACTERIA 0 SEEN Normal None Seen [facility] Comment on above: Order Comment: CLEAN CATCH Performed By: #### L 400.0001 #### [facility] [address] [place], [address] Mucus Ql (Urine sed) 0 SEEN Normal [facility] Comment on above: Order Comment: CLEAN CATCH Performed By: #### L 400.0001 #### [facility] [address] [place], [address] RBC 0 SEEN Normal 0-5 [facility] Comment on above: Order Comment: CLEAN CATCH Performed By: #### L 400.0001 #### [facility] [address] [place], [address] Urine clarityOrdered By: Padmini Sparrow on 02-16-2025 Clarity (U) Clear Clear [facility] Urine color determinationOrd ered By: Omega Sparrow on 02-16-2025 Color (U) Yellow Yellow [facility] Urine glucose detectionOrder ed By: Omega Sparrow on 02-16-2025 Glucose Ql (U) Normal mg/dl Normal [facility] Urine leukocyte esterase det ection by dipstickOrdered By: Omega Sparrow on 02-16-2025 Leukocyte esterase Test strip Ql (U) Negative Negative [facility] Urine pHOrdered By: Omega Sweet gur on 02-16-2025 pH (U) 7.0 [pH] 5.0 - 8.0 [facility] Urine sediment bacteria coun t by microscopy (number/high power field)Ordered By: Omega Sparrow on 02-16-2025 Bacteria LM.HPF (Urine sed) [#/Area] 0 /[HPF] None Seen [facility] Urine specific gravity measu rementOrdered By: Omega Sparrow on 02-16-2025 Specific gravity (U) [Rel density] 1.010 1.002-1.030 [facility] Urine urobilinogen measureme ntOrdered By: Omega Sparrow on 02-16-2025 Urobilinogen Ql (U) Normal mg/dl Normal [facility] White blood cell (WBC) count Ordered By: Omega Sparrow on 02-16-2025 WBC (Bld) [#/Vol] 7.8 10*3/uL 4.4-11.0 [facility] White blood cell countOrdere d By: Omega Sparrow on 02-16-2025 White blood cell count 0-5 SEEN /hpf 0-5 [facility] CBC W Auto Differential pane l (Bld)on 03-09-2024 Basophils (Bld) [#/Vol] 0.03 10*3/uL Normal <0.[address] [facility] Comment on above: Order Comment: Speci men Type: BLOOD SPECIMEN Ordering Facility: [facility] Address: [address] [place] [address] Performed By: #### 2 4331-1 #### [facility] CLIA [id number] [address] [place] [address] [place] Basophils/100 WBC (Bld) 0.5 % Normal [facility] Comment on above: Order Comment: Speci men Type: BLOOD SPECIMEN Ordering Facility: [facility] Address: [address] [place] [address] Performed By: #### 2 4331-1 #### [facility] CLIA [id number] [address] [place] [address] [place] Differential cell count method Nom (Bld) Auto Normal [facility] Comment on above: Order Comment: Speci men Type: BLOOD SPECIMEN Ordering Facility: [facility] Address: [address] [place] [address] Performed By: #### 2 4331-1 #### [facility] CLIA [id number] [address] [place] [address] [place] Eosinophils (Bld) [#/Vol] 0.08 10*3/uL Normal <0.[address] [facility] Comment on above: Order Comment: Speci men Type: BLOOD SPECIMEN Ordering Facility: [facility] Address: [address] [place] [address] Performed By: #### 2 4331-1 #### [facility] CLIA [id number] [address] [place] [address] [place] Eosinophils/100 WBC (Bld) 1.4 % Normal [facility] Comment on above: Order Comment: Speci men Type: BLOOD SPECIMEN Ordering Facility: [facility] Address: [address] [place] [address] Performed By: #### 2 4331-1 #### [facility] CLIA [id number] [address] [place] [address] [place] Erythrocyte distribution width (RBC) [Ratio] 14.6 % Normal 11.5-15.[address] [facility] Comment on above: Order Comment: Speci men Type: BLOOD SPECIMEN Ordering Facility: [facility] Address: [address] [place] [address] Performed By: #### 2 4331-1 #### [facility] CLIA [id number] [address] [place] [address] [place] Hematocrit (Bld) [Volume fraction] 38.9 % Normal 36.0-46.[address] [facility] Comment on above: Order Comment: Speci men Type: BLOOD SPECIMEN Ordering Facility: [facility] Address: [address] [place] [address] Performed By: #### 2 4331-1 #### [facility] CLIA [id number] [address] [place] [address] [place] Hemoglobin (Bld) [Mass/Vol] 12.6 g/dL Normal 11.5-15.[address] [facility] Comment on above: Order Comment: Speci men Type: BLOOD SPECIMEN Ordering Facility: [facility] Address: [address] [place] [address] Performed By: #### 2 4331-1 #### [facility] CLIA [id number] [address] [place] [address] [place] Immature granulocytes (Bld) [#/Vol] 10*3/uL Normal <0.[address] [facility] Comment on above: Order Comment: Speci men Type: BLOOD SPECIMEN Ordering Facility: [facility] Address: [address] [place] [address] Performed By: #### 2 4331-1 #### [facility] CLIA [id number] [address] [place] [address] [place] Immature granulocytes/100 WBC (Bld) 0.3 % Normal [facility] Comment on above: Order Comment: Speci men Type: BLOOD SPECIMEN Ordering Facility: [facility] Address: [address] [place] [address] Performed By: #### 2 4331-1 #### [facility] CLIA [id number] [address] [place] [address] [place] Lymphocytes (Bld) [#/Vol] 2.18 10*3/uL Normal 1.00-4.[address] [facility] Comment on above: Order Comment: Speci men Type: BLOOD SPECIMEN Ordering Facility: [facility] Address: [address] [place] [address] Performed By: #### 2 4331-1 #### [facility] CLIA [id number] [address] [place] [address] [place] Lymphocytes/100 WBC (Bld) 38.0 % Normal [facility] Comment on above: Order Comment: Speci men Type: BLOOD SPECIMEN Ordering Facility: [facility] Address: [address] [place] [address] Performed By: #### 2 4331-1 #### [facility] CLIA [id number] [address] [place] [address] [place] MCH (RBC) [Entitic mass] 27.2 pg Normal 26.0-34.[address] [facility] Comment on above: Order Comment: Speci men Type: BLOOD SPECIMEN Ordering Facility: [facility] Address: [address] [place] [address] Performed By: #### 2 4331-1 #### [facility] CLIA [id number] [address] [place] [address] [place] MCHC (RBC) [Mass/Vol] 32.4 g/dL Normal 30.5-36.0 [facility] Comment on above: Order Comment: Speci men Type: BLOOD SPECIMEN Ordering Facility: [facility] Address: [address] [place] [address] Performed By: #### 2 4331-1 #### [facility] CLIA [id number] [address] [place] [address] [place] MCV (RBC) [Entitic vol] 84.0 fL Normal 80.0-100.0 C [facility] Comment on above: Order Comment: Speci men Type: BLOOD SPECIMEN Ordering Facility: [facility] Address: [address] [place] [address] Performed By: #### 2 4331-1 #### [facility] CLIA [id number] [address] [place] [address] [place] Monocytes (Bld) [#/Vol] 0.36 10*3/uL Normal <0.[address] [facility] Comment on above: Order Comment: Speci men Type: BLOOD SPECIMEN Ordering Facility: [facility] Address: [address] [place] [address] Performed By: #### 2 4331-1 #### [facility] CLIA [id number] [address] [place] [address] [place] Monocytes/100 WBC (Bld) 6.3 % Normal [facility] Comment on above: Order Comment: Speci men Type: BLOOD SPECIMEN Ordering Facility: [facility] Address: [address] [place] [address] Performed By: #### 2 4331-1 #### [facility] CLIA [id number] [address] [place] [address] [place] Neutrophils (Bld) [#/Vol] 3.06 10*3/uL Normal 1.45-7.[address] [facility] Comment on above: Order Comment: Speci men Type: BLOOD SPECIMEN Ordering Facility: [facility] Address: [address] [place] [address] Performed By: #### 2 4331-1 #### [facility] CLIA [id number] [address] [place] [address] [place] Neutrophils/100 WBC (Bld) 53.5 % Normal [facility] Comment on above: Order Comment: Speci men Type: BLOOD SPECIMEN Ordering Facility: [facility] Address: [address] [place] [address] Performed By: #### 2 4331-1 #### [facility] CLIA [id number] [address] [place] [address] [place] Nucleated RBC (Bld) [#/Vol] 10*3/uL Normal <0.[address] [facility] Comment on above: Order Comment: Speci men Type: BLOOD SPECIMEN Ordering Facility: [facility] Address: [address] [place] [address] Performed By: #### 2 4331-1 #### [facility] CLIA [id number] [address] [place] [address] [place] Nucleated RBC/100 WBC (Bld) [Ratio] 0.0 /[address] [facility] Comment on above: Order Comment: Speci men Type: BLOOD SPECIMEN Ordering Facility: [facility] Address: [address] [place] [address] Performed By: #### 2 4331-1 #### [facility] CLIA [id number] [address] [place] [address] [place] Platelet mean volume (Bld) [Entitic vol] 9.4 fL Normal 9.0-12.[address] [facility] Comment on above: Order Comment: Speci men Type: BLOOD SPECIMEN Ordering Facility: [facility] Address: [address] [place] [address] Performed By: #### 2 4331-1 #### [facility] CLIA [id number] [address] [place] [address] [place] Platelets (Bld) [#/Vol] 332 10*3/uL Normal 150-[address] [facility] Comment on above: Order Comment: Speci men Type: BLOOD SPECIMEN Ordering Facility: [facility] Address: [address] [place] [address] Performed By: #### 2 4331-1 #### [facility] CLIA [id number] [address] [place] [address] [place] RBC (Bld) [#/Vol] 4.63 10*6/uL Normal 3.90-5.20 [facility] Comment on above: Order Comment: Speci men Type: BLOOD SPECIMEN Ordering Facility: [facility] Address: [address] [place] [address] Performed By: #### 2 4331-1 #### [facility] CLIA [id number] [address] [place] [address] [place] WBC (Bld) [#/Vol] 5.73 10*3/uL Normal 3.70-11.00 [facility] Comment on above: Order Comment: Speci men Type: BLOOD SPECIMEN Ordering Facility: [facility] Address: [address] [place] [address] Performed By: #### 2 4331-1 #### [facility] CLIA [id number] [address] [facility] [place] [place] [address] [place] Comprehensive metabolic 2000 panelon 03-09-2024 Albumin [Mass/Vol] 4.4 g/dL Normal 3.9-4.9 [facility] Comment on above: Order Comment: Speci men Type: BLOOD SPECIMEN Ordering Facility: [facility] Address: [address] [place] [address] Performed By: #### 3 016-3, 08787-2 #### [facility] CLIA [id number] [address] [place] [address] [place] ALP [Catalytic activity/Vol] 84 U/L Normal 34-[address] [facility] Comment on above: Order Comment: Speci men Type: BLOOD SPECIMEN Ordering Facility: [facility] Address: [address] [place] [address] Performed By: #### 3 016-3, 76090-0 #### [facility] CLIA [id number] [address] [place] [address] [place] ALT [Catalytic activity/Vol] 30 U/L Normal 7-[address] [facility] Comment on above: Order Comment: Speci men Type: BLOOD SPECIMEN Ordering Facility: [facility] Address: [address] [place] [address] Performed By: #### 3 016-3, 75163-8 #### [facility] CLIA [id number] [address] [place] [address] [place] Anion gap [Moles/Vol] 9 mmol/L Normal 8-15 [facility] Comment on above: Order Comment: Speci men Type: BLOOD SPECIMEN Ordering Facility: [facility] Address: [address] [place] [address] Performed By: #### 3 016-3, 72911-3 #### [facility] CLIA [id number] [address] [place] [address] [place] AST [Catalytic activity/Vol] 20 U/L Normal 13-[address] [facility] Comment on above: Order Comment: Speci men Type: BLOOD SPECIMEN Ordering Facility: [facility] Address: [address] [place] [address] Performed By: #### 3 016-3, #### [facility] CLIA [id number] [address] [place] [address] [place] Bilirubin [Mass/Vol] 0.7 mg/dL Normal 0.2-1.3 [facility] Comment on above: Order Comment: Speci men Type: BLOOD SPECIMEN Ordering Facility: [facility] Address: [address] [place] [address] Performed By: #### 3 016-3, #### [facility] CLIA [id number] [address] [place] [address] [place] Calcium [Mass/Vol] 8.9 mg/dL Normal 8.5-10.2 [facility] Comment on above: Order Comment: Speci men Type: BLOOD SPECIMEN Ordering Facility: [facility] Address: [address] [place] [address] Performed By: #### 3 016-3, #### [facility] CLIA [id number] [address] [place] [address] [place] Chloride [Moles/Vol] 104 mmol/L Normal 98-107 [facility] Comment on above: Order Comment: Speci men Type: BLOOD SPECIMEN Ordering Facility: [facility] Address: [address] [place] [address] Performed By: #### 3 016-3, #### [facility] CLIA [id number] [address] [place] [address] [place] CO2 [Moles/Vol] 26 mmol/L Normal 22-[address] [facility] Comment on above: Order Comment: Speci men Type: BLOOD SPECIMEN Ordering Facility: [facility] Address: [address] [place] [address] Performed By: #### 3 016-3, 55623-7 #### [facility] CLIA [id number] [address] [place] [address] [place] Creatinine [Mass/Vol] 0.80 mg/dL Normal 0.58-0.96 [facility] Comment on above: Order Comment: Servando coello Type: BLOOD SPECIMEN Ordering Facility: [facility] Address: [address] [place] [address] Performed By: #### 3 016-3, 08329-6 #### [facility] CLIA [id number] [address] [place] [address] [place] Creatinine and Glomerular filtration rate.predicted panel (S/P/Bld) 92 mL/min/1.73m??? Normal >=[address] [facility] Comment on above: Order Comment: Servando coello Type: BLOOD SPECIMEN Ordering Facility: [facility] Address: [address] [place] [address] Result Comment: Kim mated Glomerular Filtration Rate (eGFR) is calculated using the 2020 CKD-EPI creatinine equation. This equation utilizes serum creatinine, sex, and age as parameters. The creatinine assay has traceable calibration to isotope dilution-mass spectrometry. Refer to KDIGO guidelines for clinical interpretation. In patients with unstable renal function, e.g. those with acute kidney injury, the eGFR may not accurately reflect actual GFR. Performed By: #### 3 016-3, 00494-2 #### [facility] CLIA [id number] [address] [place], [place] [address] [place] Glucose [Mass/Vol] 93 mg/dL Normal 74-99 [facility] Comment on above: Order Comment: Servando men Type: BLOOD SPECIMEN Ordering Facility: [facility] Address: [address] [place] [address] Result Comment: The [place] Diabetes [employer] (ADA) provides guidance for cutoff values for fasting glucose and random glucose. The ADA defines fasting as no caloric intake for at least 8 hours. Fasting plasma glucose results between 100 to 125 mg/dL indicate increased risk for diabetes (prediabetes). Fasting plasma glucose results greater than or equal to 126 mg/dL meet the criteria for diagnosis of diabetes. In the absence of unequivocal hyperglycemia, results should be confirmed by repeat testing. In a patient with classic symptoms of hyperglycemia or hyperglycemic crisis, random plasma glucose results greater than or equal to 200 mg/dL meet the criteria for diagnosis of diabetes. Reference: Standards of Medical Care in Diabetes 2016, [place] Diabetes Association. Diabetes Care. 2016.39(Suppl 1). Performed By: #### 3 016-3, 53375-8 #### [facility] CLIA [id number] [address] [place] [address] [place] Potassium [Moles/Vol] 4.0 mmol/L Normal 3.7-5.1 [facility] Comment on above: Order Comment: Speci men Type: BLOOD SPECIMEN Ordering Facility: [facility] Address: [address] [place] [address] Performed By: #### 3 , 20881-1 #### [facility] CLIA [id number] [address] [place], [place] [address] [place] Protein [Mass/Vol] 7.4 g/dL Normal 6.3-8.0 [facility] Comment on above: Order Comment: Speci men Type: BLOOD SPECIMEN Ordering Facility: [facility] Address: [address] [place] [address] Performed By: #### 3 -3, 40334-7 #### [facility] CLIA [id number] [address] [place], [place] [address] [place] Sodium [Moles/Vol] 139 mmol/L Normal 136-144 [facility] Comment on above: Order Comment: Speci men Type: BLOOD SPECIMEN Ordering Facility: [facility] Address: [address] [place] [address] Performed By: #### 3 3, 64126-9 #### [facility] CLIA [id number] [address] [place], [place] [address] [place] Urea nitrogen [Mass/Vol] 14 mg/dL Normal 7-[address] [facility] Comment on above: Order Comment: Speci men Type: BLOOD SPECIMEN Ordering Facility: [facility] Address: [address] [place] [address] Performed By: #### 3 016-3, 66286-1 #### [facility] CLIA [id number] [address] [place] [address] [place] Lipid 1996 panelon 4 Cholesterol [Mass/Vol] 144 mg/dL Normal <200 [facility] Comment on above: Order Comment: Speci men Type: BLOOD SPECIMEN Ordering Facility: [facility] Address: [address] [place] [address] Result Comment: <200 mg/dL, Desirable 200-239 mg/dL, Borderline high >239 mg/dL, High Performed By: #### 2 4331-1 #### [facility] CLIA [id number] [address] [place] [address] [place] Cholesterol in HDL [Mass/Vol] 52 mg/dL Normal >[address] [facility] Comment on above: Order Comment: Speci men Type: BLOOD SPECIMEN Ordering Facility: [facility] Address: [address] [place] [address] Result Comment: 40-5 9 mg/dL, Acceptable >59 mg/dL, High: Negative risk factor for coronary heart disease <40 mg/dL, Low: Positive risk factor for coronary heart disease Performed By: #### 2 4331-1 #### [facility] CLIA [id number] [address] [place] [address] [place] Cholesterol in LDL [Mass/Vol] 79 mg/dL Normal <[address] [facility] Comment on above: Order Comment: Speci men Type: BLOOD SPECIMEN Ordering Facility: [facility] Address: [address] [place] [address] Result Comment: <100 mg/dL, Optimal 100-129 mg/dL, Near optimal/above optimal 130-159 mg/dL, Borderline high 160-189 mg/dL, High >189 mg/dL, Very high Secondary prevention optimal LDL Cholesterol levels are recommended to be < 70 mg/dL Performed By: #### 2 4331-1 #### [facility] CLIA [id number] [address] [place] [address] [place] Cholesterol in LDL/Cholesterol in HDL [Mass ratio] 1.52 {ratio} Normal <2.[address] [facility] Comment on above: Order Comment: Servando coello Type: BLOOD SPECIMEN Ordering Facility: [facility] Address: [address] [place] [address] Result Comment: Refe mandoce: 1. National Cholesterol Education Program ATP III Guideline At-A-Glance Quick Desk Reference: National Heart, Lung, and Blood Advance. National Institutes of Health. 2001: NIH Publication No. 01-3305. 2. An International Atherosclerosis Society position paper: global recommendations for the management of dyslipidemia: executive summary, Atherosclerosis. 2014: 232(2):410-413. Performed By: #### 2 4331-1 #### [facility] CLIA [id number] [address] [place] [address] [place] Cholesterol in VLDL [Mass/Vol] 13 mg/dL Normal <[address] [facility] Comment on above: Order Comment: Servando coello Type: BLOOD SPECIMEN Ordering Facility: [facility] Address: [address] [place] [address] Performed By: #### 2 4331-1 #### [facility] CLIA [id number] [address] [place] [address] [place] Cholesterol non HDL [Mass/Vol] 92 mg/dL Normal <[address] [facility] Comment on above: Order Comment: Servando coello Type: BLOOD SPECIMEN Ordering Facility: [facility] Address: [address] [place] [address] Result Comment: <130 mg/dL, Optimal 130-159 mg/dL, Near optimal/above optimal 160-189 mg/dL, Borderline high 190-219 mg/dL, High >219 mg/dL, Very high Secondary prevention optimal non HDL Cholesterol levels are recommended to be <100 mg/dL Performed By: #### 2 4331-1 #### [facility] CLIA [id number] [address] [id number] [address] [place] Cholesterol.total/Choles terol in HDL [Mass ratio] 2.77 {ratio} Normal <5.[address] [facility] Comment on above: Order Comment: Servando coello Type: BLOOD SPECIMEN Ordering Facility: [facility] Address: [address] [place] [address] Performed By: #### 2 4331-1 #### [facility] CLIA [id number] [address] [place] [address] [place] [facility] FASTING TIME [address] [facility] Comment on above: Order Comment: Servando men Type: BLOOD SPECIMEN Ordering Facility: [facility] Address: [address] [place] [address] Performed By: #### 2 4331-1 #### [facility] CLIA [id number] [address] [place] [address] [place] Triglyceride [Mass/Vol] 64 mg/dL Normal <150 [facility] Comment on above: Order Comment: Servando coello Type: BLOOD SPECIMEN Ordering Facility: [facility] Address: [address] [place] [address] Result Comment: <150 mg/dL, Normal 150-199 mg/dL, Borderline high 200-499 mg/dL, High >499 mg/dL, Very high Performed By: #### 2 4331-1 #### [facility] CLIA [id number] [address] [place] [address] [place] TSH SerPl-aCncon 03-09-2024 TSH Qn 0.644 m[IU]/L Normal 0.270-4.[address] [facility] Comment on above: Order Comment: Justini mode Type: BLOOD SPECIMEN Ordering Facility: [facility] Address: [address] [place] [address] Result Comment: If t he patient is , TSH reference range varies by gestational period: First Trimester (weeks 9-12): 0.180-2.990 mIU/L Second Trimester: 0.110-3.980 mIU/L Third Trimester: 0.480-4.710 mIU/L Amaury Vallecillo et al. A Practical Approach for the Verifications and Determination of Site- and Trimester-Specific Reference Intervals for Thyroid Function tests in . Thyroid, 2019:29:3:412-420. Sang Mendoza, et al. 2017 Guidelines of the [place] Thyroid Association for the Diagnosis and Management of Thyroid Disease during and the . Thyroid, 2017:27:3:315-389. Performed By: #### 3 016-3, 63567-1 #### [facility] CLIA [id number] [address] [place] [address] [place] Urinalysis complete panel (U )on 03-09-2024 Bilirubin Ql (U) Negative Normal Negative [facility] Comment on above: Order Comment: Speci men Type: URINE SPECIMEN Ordering Facility: [facility] Address: [address] [place] [address] Performed By: #### 2 4356-8 #### [facility] CLIA [id number] [address] [place] [address] [place] Clarity (Unsp spec) Clear Normal Clear [facility] Comment on above: Order Comment: Speci men Type: URINE SPECIMEN Ordering Facility: [facility] Address: [address] [place] [address] Performed By: #### 2 6-8 #### [facility] CLIA [id number] [address] [place] [address] OF [facility] Color (U) Light Yellow Normal yellow [facility] Comment on above: Order Comment: Speci men Type: URINE SPECIMEN Ordering Facility: [facility] Address: [address] [place] [address] Performed By: #### 2 6-8 #### [facility] CLIA [id number] [address] [place] [address] [place] Epithelial cells LM.HPF (Urine sed) [#/Area] Few Normal [facility] Comment on above: Order Comment: Speci men Type: URINE SPECIMEN Ordering Facility: [facility] Address: [address] [place] [address] Performed By: #### 2 4356-8 #### [facility] CLIA [id number] [address] [place] [address] [place] Glucose Test strip (U) [Mass/Vol] Negative Normal Trace, Negative [facility] Comment on above: Order Comment: Speci men Type: URINE SPECIMEN Ordering Facility: [facility] Address: [address] [place] [address] Performed By: #### 2 4356-8 #### [facility] CLIA [id number] [address] [place] [address] [place] Hemoglobin Ql (U) Trace Normal Negative, Trace [facility] Comment on above: Order Comment: Speci men Type: URINE SPECIMEN Ordering Facility: [facility] Address: [address] [place] [address] Performed By: #### 2 4356-8 #### [facility] CLIA [id number] [address] [place] [address] [place] Ketones Ql (U) 1+ Abnormal Negative, Trace [facility] Comment on above: Order Comment: Speci men Type: URINE SPECIMEN Ordering Facility: [facility] Address: [address] [place] [address] Performed By: #### 2 4356-8 #### [facility] CLIA [id number] [address] [place] [address] [place] Leukocyte esterase Test strip Ql (U) Negative Normal Negative, 25 Charlene/uL [facility] Comment on above: Order Comment: Speci men Type: URINE SPECIMEN Ordering Facility: [facility] Address: [address] [place] [address] Performed By: #### 2 4356-8 #### [facility] CLIA [id number] [address] [place] [address] [place] Nitrite Ql (U) Negative Normal Negative [facility] Comment on above: Order Comment: Speci men Type: URINE SPECIMEN Ordering Facility: [facility] Address: [address] [place] [address] Performed By: #### 2 4356-8 #### [facility] CLIA [id number] [address] [place] [address] [place] pH (U) 5.5 [pH] Normal 5.0-8.[address] [facility] Comment on above: Order Comment: Speci men Type: URINE SPECIMEN Ordering Facility: [facility] Address: [address] [place] [address] Performed By: #### 2 4356-8 #### [facility] CLIA [id number] [address] [place] [address] [place] Protein (U) [Mass/Vol] Negative Normal Trace , Negative [facility] Comment on above: Order Comment: Speci men Type: URINE SPECIMEN Ordering Facility: [facility] Address: [address] [place] [address] Performed By: #### 2 4356-8 #### [facility] CLIA [id number] [address] [place] [address] [place] RBC LM.HPF (Urine sed) [#/Area] 0-3 /HPF Normal 0-3 /HPF [facility] Comment on above: Order Comment: Speci men Type: URINE SPECIMEN Ordering Facility: [facility] Address: [address] [place] [address] Performed By: #### 2 4356-8 #### [facility] CLIA [id number] [address] [place] [address] [place] Specific gravity (U) [Rel density] 1.027 Normal 1.005-1.[address] [facility] Comment on above: Order Comment: Speci men Type: URINE SPECIMEN Ordering Facility: [facility] Address: [address] [place] [address] Performed By: #### 2 4356-8 #### [facility] CLIA [id number] [address] [place] [address] [place] Urobilinogen Ql (U) Normal Normal Normal [facility] Comment on above: Order Comment: Speci men Type: URINE SPECIMEN Ordering Facility: [facility] Address: [address] [place] [address] Performed By: #### 2 4356-8 #### [facility] CLIA [id number] [address] [place] [place] [id number] [place] [facility] WBC LM.HPF (Urine sed) [#/Area] 0-5 /HPF Normal 0-5 /HPF [facility] Comment on above: Order Comment: Speci men Type: URINE SPECIMEN Ordering Facility: [facility] Address: [facility] [place] [address] Performed By: #### 2 4356-8 #### [facility] CLIA [id number] [address] [id number] [facility] CNPNon 03-02-2024 CNPN Telephone (AGGASTACC) JERROD FULTON ([id number]) 1975 [facility] Date Time Provider Department 03/02/24 TRISHA AZUL AGGASTACC During your visit today, we recorded the following information about you: Trisha Azul, TY 03/02/2024 3:44 PM Signed Spoke with patient's sister, who called [facility] to schedule patient for colonoscopy. Gave number for [facility] since patient will need county health officer, has no insurance, AND has epigastric pain AND nausea. Allergies As of Date: 03/02/2024 (No Known Allergies) Date Reviewed: 06/20/2023 Reviewed by: Pily Lynch MA - Fully Assessed Reason for Visit: Colonoscopy [Other] Cmt: Epigastric pain AND needs orthotist or prosthetist for colonoscopy screening Prescriptions as of 03/02/2024 - omeprazole (PRILOSEC) 20 mg capsule Take 1 capsule by mouth daily before breakfast. 1/2 hr before meal. Problem List As Of Date 03/02/2024 Noted Resolved Chronic midline low back pain with bilateral sc*03/31/2018 Menstrual migraine without status migrainosus, *06/05/2018 Encounter Status:Closed by TRISHA AZUL on 03/02/[address] [facility] CT LUMBAR SPINE WO IVCONon 0 02-02-2024 CT LUMBAR SPINE WO IVCON * * *Final Repo rt* * * DATE OF EXAM: Feb 02 2024 2:05PM [facility] 0508 - CT LUMBAR SPINE WO IVCON / PROCEDURE REASON: Low back pain, progressive neurologic deficit * * * * Physician Interpretation * * * * EXAMINATION: CT LUMBAR SPINE WO IVCON CLINICAL HISTORY: Low back pain, progressive neurologic deficit TECHNIQUE: Spiral, high resolution axial unenhanced images were obtained from the thoracolumbar junction to the sacrum with sagittal and coronal planar reconstructions. MQ: [id number] CT Radiation dose: Integrated Dose-Length Product (DLP) for this visit = 660.48 mGy*cm. CT Dose Reduction Employed: Automated exposure control(AEC) and iterative recon COMPARISON: None. RESULT: Counting reference: Lumbosacral junction. For the purposes of this report, L4-5 is considered the level of the iliac crest and assume there are 5 lumbar-type vertebrae. Anatomic variant: None. Production Helper (topogram) images: No additional findings. Alignment: Mild levocurvature centered at L4-L5. Cholecystectomy clips are present. Bone marrow /fracture: No evidence of a lytic or blastic process in the visualized spine. No evidence of acute or chronic fracture. Paraspinal soft tissues: The paraspinal soft tissues planes are maintained. Lower thoracic spine: The visualized lower thoracic bony canal and foramina are patent. Canal and foramina: Mild multilevel degenerative disc and facet disease without evidence of substantial canal or foraminal stenosis. L2-L3: Canal and foramina are patent L3-L4: Canal and foramina are patent L4-L5: Canal and foramina are patent L5-S1: Canal and foramina are patent Sacrum and iliac wings: Mild degenerative changes of the bilateral sacroiliac joints. IMPRESSION: Mild multilevel degenerative disc and facet disease without evidence of substantial canal or foraminal stenosis. No evidence of acute fracture or traumatic malalignment. Mild levocurvature centered at L4-L5. Anatomic Lumbar Variant: None. L4-5 is considered the level of the iliac crest and assume there are 5 lumbar-type vertebrae. Corner Cutter Machine Operator: PSCB Transcribe Date/Time: Feb 02 2024 2:09P Dictated by : NISHI JONES MD This examination was interpreted and the report reviewed and electronically signed by: NISHI JONES MD on Feb 02 2024 2:12PM EST [id number] CN [facility] ED PROV NOTEon 02-02-2024 ED PROV NOTE HNO ID: [id number] Author: JS CABRALES APRN.CNP Service: Emergency Medicine Author Type: Nurse Practitioner Type: ED Provider Notes Filed: 02/02/2024 18:32 Note Text: ED Provider Note Patient Name: Jerrod Santiago : 1975 SERVICE DATE: 02/02/24 History Patient presents with: Back Pain: Patient reports lower back pain, worsening pain started yesterday 48-year-old female presents emergency for low back pain is going on for several months but has gotten worse over the last couple of days. Patient has had issues with a lot of rectal pressure and pain in the low back. It does not radiate down either leg it stays in the back. No fall or trauma. She has not seen anybody for this previously. Patient has had episodes in the past where she is urinated and not realize it. No recent episodes of this. No past medical history on file. No past surgical history on file. No family history on file. Social History Tobacco Use Smoking status: Not on file Smokeless tobacco: Not on file Substance and Sexual Activity Alcohol use: Not on file Drug use: Not on file Sexual activity: Not on file ALLERGIES No Known Allergies Review of Systems Constitutional: Positive for activity change. Musculoskeletal: Positive for back pain. All other systems reviewed and are negative. Physical Exam Vitals [02/02/24 1143] BP Pulse Temp Temp src Resp SpO2 Weight Height 123/82 66 36.9 ?C (98.5 ?F) Oral 18 98 % 83.9 kg (185 lb) 1.651 m (5' 5) Physical Exam Vitals and nursing note reviewed. Constitutional: Appearance: Normal appearance. HENT: Head: Normocephalic. Genitourinary: Rectum: Normal. Musculoskeletal: General: Tenderness present. No signs of injury. Normal range of motion. Cervical back: Normal range of motion and neck supple. No rigidity or tenderness. Comments: Tenderness throughout the lumbar spine and paralumbar area bilaterally. Pain over bilateral SI joint with negative straight leg test bilaterally. Bilateral push pulls of feet good pedal pulses bilaterally DTRs intact. Lymphadenopathy: Cervical: No cervical adenopathy. Neurological: General: No focal deficit present. Mental Status: She is alert and oriented to person, place, and time. Mental status is at baseline. Sensory: No sensory deficit. Motor: No weakness. Coordination: Coordination normal. Gait: Gait normal. Deep Tendon Reflexes: Reflexes normal. Psychiatric: Mood and Affect: Mood normal. Behavior: Behavior normal. Diagnostic Testing ED Labs Ordered and Reviewed - No data to display Procedures ED Course / Clinical Impression ED Course as of 02/02/241831 Js Cabrales's Documentation Mon Feb 02, 20241830 CT LUMBAR SPINE WO IVCON IMPRESSION: Mild multilevel degenerative disc and facet disease without evidence of substantial canal or foraminal stenosis. No evidence of acute fracture or traumatic malalignment. Mild levocurvature centered at L4-L5. Anatomic Lumbar Variant: None. L4-5 is considered the level of the iliac crest and assume there are 5 lumbar-type vertebrae. Clinical Impressions as of 02/02/241831 Strain of lumbar region, initial encounter MDM / Disposition / Plan Sexual female presents emergency room with low back pain going on for several months but progressively getting worse. Patient was given IM injections at the [facility] and sent here for imaging. CT lumbar spine was completed. CT shows multi level degenerative disc and foraminal disease without evidence of substantial canal or foraminal stenosis. No acute fractures. Discussed this with patient and daughter. At this time we will place her on muscle relaxer, anti-inflammatory, lidocaine patches and a Medrol Dosepak. I referred her to establish with a family doctor to get her in so we can further evaluate this as needed if medications are not helping. Encouraged rest and no heavy lifting or straining. Patient and daughter state understanding of instruction patient will be discharged home. Clinical impression: Lumbar strain Disposition The patient was discharged. Counseled patient and family regarding radiology results and suspected diagnosis. Follow Up Orders Status Ordering Provider FOLLOW UP APPOINTMENT REQUEST (ED/IP) Question Answer Comment Follow up appointment: PCP/Primary Care Schedule follow up appointment within 1 week Follow Up Reason: lumbar pain, acute flare Acknowledged JS CABRALES SIGNATURE: sJ Cabrales APRN.ENVIRONMENTAL MONITORING TECHNICIAN - SAMRA JS N 02/02/24 [facility]) JERROD FULTON ([id number]) 1975 [facility] Date Time Provider Department 06/23/23 [facility] During your visit today, we recorded the following information about you: Js Craig APRN.ERIC 06/23/2023 3:12 PM Signed Please let patient know her 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 Rosangela Nation Ma 06/23/2023 3:37 PM Signed Pt notified. Rosangela Nation Ma Allergies As of Date: 06/23/2023 (No Known Allergies) Date Reviewed: 06/20/2023 Reviewed by: Pily Lynch Cma - Fully Assessed Reason for Visit: Results [95] Prescriptions as of 06/23/2023 - omeprazole (PRILOSEC) 20 mg capsule Take 1 capsule by mouth daily before breakfast. 1/2 hr before meal. 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 Js Craig APRN.CNP 06/23/2023 9:42 AM Signed Please let patient know her xray is negative. Rosangela Nation Ma 06/23/2023 10:44 AM Signed Pt daughter notified as pt needs this translated into guyanese. Rosangela Nation Ma Allergies As of Date: 06/23/2023 (No Known Allergies) Date Reviewed: 06/20/2023 Reviewed by: Pily Lynch Cma - Fully Assessed Reason for Visit: Results [95] Prescriptions as of 06/23/2023 - omeprazole (PRILOSEC) 20 mg capsule Take 1 capsule by mouth daily before breakfast. 1/2 hr before meal. Problem List As Of Date 06/23/2023 Noted Resolved Chronic midline low back pain with bilateral sc*03/31/2018 Menstrual migraine without status migrainosus, *06/05/2018 Encounter Status:Closed by ROSANGELA NATION MA on 06/23/[address] [facility] No Panel Informationon 06-23 [facility] XR Cervical spine AP and Lat eral and obliqueon 06-23-2023 IMPRESSION: Cervical spine mild degenerative changes. Corner Cutter Machine Operator: KELLY Transcribe Date/Time: Jun 23 2023 10:21A Dictated by : LOLI ALLEN MD This examination was interpreted and the report reviewed and electronically signed by: LOLI ALLEN MD on Jun 23 2023 10:23AM [facility] DIVISION OF RADIOLOGY * * *Final Report* * * DATE OF EXAM: Jun 20 2023 9:50AM WOX [id number] - XR CERVICAL 4V AP/LAT/OBL / PROCEDURE REASON: multiple diagnoses * * * * Physician Interpretation * * * * EXAM TITLE: XR CERVICAL 4V AP/LAT/OBL EXAM DATE/TIME: 06/20/2023 9:50 AM COMPARISON: None. CLINICAL INDICATION/HISTORY: Numbness and tingling in the bilateral legs. TECHNIQUE: AP, lateral and oblique views of the cervical spine are presented. FINDINGS: No fractures or subluxations are noted. The disc spaces are grossly preserved. There is mild osteophyte formation. The neural foramina are patent. The prevertebral soft tissues are normal. DIVISION OF RADIOLOGY Provider, [facility] - 06/23/2023 * * *Final Report* * * DATE OF EXAM: Jun 20 2023 9:50AM [facility] 5311 - XR CERVICAL 4V AP/LAT/OBL / PROCEDURE REASON: multiple diagnoses * * * * Physician Interpretation * * * * EXAM TITLE: XR CERVICAL 4V AP/LAT/OBL EXAM DATE/TIME: 06/20/2023 9:50 AM COMPARISON: None. CLINICAL INDICATION/HISTORY: Numbness and tingling in the bilateral legs. TECHNIQUE: AP, lateral and oblique views of the cervical spine are presented. FINDINGS: No fractures or subluxations are noted. The disc spaces are grossly preserved. There is mild osteophyte formation. The neural foramina are patent. The prevertebral soft tissues are normal. IMPRESSION IMPRESSION: Cervical spine mild degenerative changes. Corner Cutter Machine Operator: KELLY Transcribe Date/Time: Jun 23 2023 10:21A Dictated by : LOLI ALLEN MD This examination was interpreted and the report reviewed and electronically signed by: OLLI ALLEN MD on Jun 23 2023 10:23AM EST [facility] XR Thoracic spine AP and Lat eral and [place] 06-23-2023 IMPRESSION: Unremarkable thoracic spine X-ray. Corner Cutter Machine Operator: [facility] Transcribe Date/Time: Jun 23 2023 2:36P Dictated by : LOLI ALLEN MD This examination was interpreted and the report reviewed and electronically signed by: LOLI ALLEN MD on Jun 23 2023 2:58PM [facility] DIVISION OF RADIOLOGY * * *Final Report* * * DATE OF EXAM: Jun 20 2023 9:50AM WOX 5261 - XR THORACIC 3V AP/LAT/SWIMMERS / PROCEDURE REASON: Upper back pain * * * * Physician Interpretation * * * * EXAM TITLE: XR THORACIC 3V AP/LAT/SWIMMERS EXAM DATE/TIME: 06/20/2023 9:50 AM COMPARISON: None. CLINICAL INDICATION/HISTORY: Upper back pain TECHNIQUE: AP, swimmer's and lateral views of the thoracic spine are presented FINDINGS: No fractures or subluxations are noted. The disc spaces are grossly preserved. No obvious osteophyte formation. There is no paraspinal mass or bony destructive process. DIVISION OF RADIOLOGY Provider, [facility] - 06/23/2023 * * *Final Report* * * DATE OF EXAM: Jun 20 2023 9:50AM [facility]OX 5261 - XR THORACIC 3V AP/LAT/SWIMMERS / PROCEDURE REASON: Upper back pain * * * * Physician Interpretation * * * * EXAM TITLE: XR THORACIC 3V AP/LAT/SWIMMERS EXAM DATE/TIME: 06/20/2023 9:50 AM COMPARISON: None. CLINICAL INDICATION/HISTORY: Upper back pain TECHNIQUE: AP, swimmer's and lateral views of the thoracic spine are presented FINDINGS: No fractures or subluxations are noted. The disc spaces are grossly preserved. No obvious osteophyte formation. There is no paraspinal mass or bony destructive process. IMPRESSION IMPRESSION: Unremarkable thoracic spine X-ray. Corner Cutter Machine Operator: PSCB Transcribe Date/Time: Jun 23 2023 2:36P Dictated by : LOLI ALLEN MD This examination was interpreted and the report reviewed and electronically signed by: LOLI ALLEN MD on Jun 23 2023 2:58PM [facility] CBC W Auto Differential pane l (Bld)on 06-20-2023 Basophils (Bld) [#/Vol] 0.04 10*3/uL Normal <0.[address] [facility] Comment on above: Order Comment: Speci men Type: BLOOD SPECIMEN Ordering Facility: [facility] Address: [address] [place] [address] Performed By: #### 5 7021-8 #### [facility] CLIA [id number] [address] [place] [address] [place] Basophils/100 WBC (Bld) 0.8 % Normal C [facility] Comment on above: Order Comment: Servando coello Type: BLOOD SPECIMEN Ordering Facility: [facility] Address: [address] [place] [address] Performed By: #### 5 7021-8 #### [facility] CLIA [id number] [address] [place] [address] [place] Differential cell count method Nom (Bld) Auto Normal [facility] Comment on above: Order Comment: Speci men Type: BLOOD SPECIMEN Ordering Facility: [facility] Address: [address] [place] [address] Performed By: #### 5 7021-8 #### [facility] CLIA [id number] [address] [place] [address] [place] Eosinophils (Bld) [#/Vol] 0.10 10*3/uL Normal <0.[address] [facility] Comment on above: Order Comment: Speci men Type: BLOOD SPECIMEN Ordering Facility: [facility] Address: [address] [place] [address] Performed By: #### 5 7021-8 #### [facility] CLIA [id number] [address] [place] [address] [place] Eosinophils/100 WBC (Bld) 1.9 % Normal [facility] Comment on above: Order Comment: Speci men Type: BLOOD SPECIMEN Ordering Facility: [facility] Address: [address] [place] [address] Performed By: #### 5 7021-8 #### [facility] CLIA [id number] [address] [place] [address] [place] Erythrocyte distribution width (RBC) [Ratio] 13.6 % Normal 11.5-15.[address] [facility] Comment on above: Order Comment: Speci men Type: BLOOD SPECIMEN Ordering Facility: [facility] Address: [address] [place] [address] Performed By: #### 5 7021-8 #### [facility] CLIA [id number] [address] [place] [address] [place] Hematocrit (Bld) [Volume fraction] 38.7 % Normal 36.0-46.[address] [facility] Comment on above: Order Comment: Speci men Type: BLOOD SPECIMEN Ordering Facility: [facility] Address: [address] [place] [address] Performed By: #### 5 7021-8 #### [facility] CLIA [id number] [address] [place] [address] [place] Hemoglobin (Bld) [Mass/Vol] 12.5 g/dL Normal 11.5-15.[address] [facility] Comment on above: Order Comment: Speci men Type: BLOOD SPECIMEN Ordering Facility: [facility] Address: [address] [place] [address] Performed By: #### 5 7021-8 #### [facility] CLIA [id number] [address] [place] [address] [place] Immature granulocytes (Bld) [#/Vol] 10*3/uL Normal <0.[address] [facility] Comment on above: Order Comment: Speci men Type: BLOOD SPECIMEN Ordering Facility: [facility] Address: [address] [place] [address] Performed By: #### 5 7021-8 #### [facility] CLIA [id number] [address] [place] [address] [place] Immature granulocytes/100 WBC (Bld) 0.2 % Normal [facility] Comment on above: Order Comment: Speci men Type: BLOOD SPECIMEN Ordering Facility: [facility] Address: [address] [place] [address] Performed By: #### 5 7021-8 #### [facility] CLIA [id number] [address] [place] [address] [place] Lymphocytes (Bld) [#/Vol] 1.85 10*3/uL Normal 1.00-4.[address] [facility] Comment on above: Order Comment: Speci men Type: BLOOD SPECIMEN Ordering Facility: [facility] Address: [address] [place] [address] Performed By: #### 5 7021-8 #### [facility] CLIA [id number] [address] [place] [address] [place] Lymphocytes/100 WBC (Bld) 35.6 % Normal [facility] Comment on above: Order Comment: Speci men Type: BLOOD SPECIMEN Ordering Facility: [facility] Address: [address] [place] [address] Performed By: #### 5 7021-8 #### [facility] CLIA [id number] [facility] [place] [address] [place] MCH (RBC) [Entitic mass] 27.0 pg Normal 26.0-34.[address] [facility] Comment on above: Order Comment: Speci men Type: BLOOD SPECIMEN Ordering Facility: [facility] Address: [address] [place] [address] Performed By: #### 5 7021-8 #### [facility] CLIA [id number] [address] [place] [address] [place] MCHC (RBC) [Mass/Vol] 32.3 g/dL Normal 30.5-36.0 [facility] Comment on above: Order Comment: Speci men Type: BLOOD SPECIMEN Ordering Facility: [facility] Address: [address] [place] [address] Performed By: #### 5 7021-8 #### [facility] CLIA [id number] [address] [place] [address] [place] MCV (RBC) [Entitic vol] 83.6 fL Normal 80.0-100.0 C [facility] Comment on above: Order Comment: Speci men Type: BLOOD SPECIMEN Ordering Facility: [facility] Address: [address] [place] [address] Performed By: #### 5 7021-8 #### [facility] CLIA [id number] [address] [place] [address] [place] Monocytes (Bld) [#/Vol] 0.37 10*3/uL Normal <0.[address] [facility] Comment on above: Order Comment: Speci men Type: BLOOD SPECIMEN Ordering Facility: [facility] Address: [address] [place] [address] Performed By: #### 5 7021-8 #### [facility] CLIA [id number] [address] [place] [address] [place] Monocytes/100 WBC (Bld) 7.1 % Normal [facility] Comment on above: Order Comment: Speci men Type: BLOOD SPECIMEN Ordering Facility: [facility] Address: [address] [place] [address] Performed By: #### 5 7021-8 #### [facility] CLIA [id number] [address] [place] [address] [place] Neutrophils (Bld) [#/Vol] 2.83 10*3/uL Normal 1.45-7.[address] [facility] Comment on above: Order Comment: Speci men Type: BLOOD SPECIMEN Ordering Facility: [facility] Address: [address] [place] [address] Performed By: #### 5 7021-8 #### [facility] CLIA [id number] [address] [place] [address] [place] Neutrophils/100 WBC (Bld) 54.4 % Normal [facility] Comment on above: Order Comment: Speci men Type: BLOOD SPECIMEN Ordering Facility: [facility] Address: [address] [place] [address] Performed By: #### 5 7021-8 #### [facility] CLIA [id number] [address] [place] [address] [place] Nucleated RBC (Bld) [#/Vol] 10*3/uL Normal <0.[address] [facility] Comment on above: Order Comment: Speci men Type: BLOOD SPECIMEN Ordering Facility: [facility] Address: [address] [place] [address] Performed By: #### 5 7021-8 #### [facility] CLIA [id number] [address] [place] [address] [place] Nucleated RBC/100 WBC (Bld) [Ratio] 0.0 /[address] [facility] Comment on above: Order Comment: Speci men Type: BLOOD SPECIMEN Ordering Facility: [facility] Address: [address] [place] [address] Performed By: #### 5 7021-8 #### [facility] CLIA [id number] [address] [place] [address] [place] Platelet mean volume (Bld) [Entitic vol] 9.7 fL Normal 9.0-12.[address] [facility] Comment on above: Order Comment: Speci men Type: BLOOD SPECIMEN Ordering Facility: [facility] Address: [address] [place] [address] Performed By: #### 5 7021-8 #### [facility] CLIA [id number] [address] [place] [address] [place] Platelets (Bld) [#/Vol] 332 10*3/uL Normal 150-[address] [facility] Comment on above: Order Comment: Speci men Type: BLOOD SPECIMEN Ordering Facility: [facility] Address: [address] [place] [address] Performed By: #### 5 7021-8 #### [facility] CLIA [id number] [address] [place] [address] [place] RBC (Bld) [#/Vol] 4.63 10*6/uL Normal 3.90-5.20 [facility] Comment on above: Order Comment: Speci men Type: BLOOD SPECIMEN Ordering Facility: [facility] Address: [address] [place] [address] Performed By: #### 5 7021-8 #### [facility] CLIA [id number] [address] [place] [address] [place] WBC (Bld) [#/Vol] 5.20 10*3/uL Normal 3.70-11.00 [facility] Comment on above: Order Comment: Speci men Type: BLOOD SPECIMEN Ordering Facility: [facility] Address: [address] [place] [address] Performed By: #### 5 7021-8 #### [facility] CLIA [id number] [address] [facility] [id number] [address] [place] CNOVon 06-20-2023 CNOV Office Visit (FAMPWS) DONALDOJERROD WALKER Ines ([id number]) 1975 F [facility] Date Time Provider Department 06/20/23 8:20 AM JS CRAIG During your visit today, we recorded the following information about you: Pulse Respiration Blood pressure Weight 68/minute 14/minute 130/78 84.8 kg Js Craig, SURVEY WORKER.ENVIRONMENTAL MONITORING TECHNICIAN 06/20/2023 9:27 AM Signed Chief Complaint Patient presents with: Establish [facility] HPI Jerrod Fulton is a 47 year old female who presents here today for Above Complaints. Patient presents to establish care however patient presents with multiple acute complaints. Patient reports epigastric pain with nausea and heartburn for over 7 months. Reports use of OTC antacids. Patient reports pain with in upper thoracic spine with sneezing. Patient also reports numbness and tingling to upper and lower extremities worse when lying down. Past medical history, appointments, medications, allergies reviewed. Previous Medical History PAST MEDICAL HISTORY Diagnosis Date Chronic midline low back pain with bilateral sciatica 03/31/2018 Kidney stones 2014 [facility] Menstrual migraine without status migrainosus, not intractable 06/05/2018 Previous Surgical History PAST SURGICAL HISTORY Procedure Laterality Date PAST SURGICAL HISTORY OF 2006 gall bladder removed, Blas Lizama Family History FAMILY HISTORY Problem Relation Age of Onset Lipids Mother Peripheral Artery Disease Mother Arthritis Mother No Known Problems Father No Known Problems Sister No Known Problems Brother other (tuberculosis) Maternal Grandfather other (tuberculosis) Paternal Grandmother Cancer Paternal Grandfather lung No Known Problems Sister No Known Problems Sister No Known Problems Sister No Known Problems Sister No Known Problems Brother Patient Allergies ALLERGIES No Known Allergies Current Medications No current outpatient medications on file prior to visit. No current facility-administere d medications on file prior to visit. Social History Social History Tobacco Use Smoking status: Never Smokeless tobacco: Never Substance Use Topics Alcohol use: No Drug use: No Review of Symptoms REVIEW OF SYSTEMS SEE HPI EXAM: BP 130/78 Pulse 68 Resp 14 Wt 84.8 kg (187 lb) LMP 03/15/2018 (Exact Date) BMI 32.86 kg/m? General Appearance: Well appearing, alert, in no acute distress, well-hydrated, well nourished.. Back:reflexes are 2+ and symmetric, motor and sensory appear to be normal, pain with flexion, ROM intact. Extension limited. Tenderness with palpation of muscles in lumbar region. Abdomen: Abdomen soft, non-tender. Bowel sounds normal. No masses, organomegaly, Positive findings: tenderness moderate epigastric. Neurologic: Gait normal. Reflexes normal and symmetric. Sensation grossly intact.. Health Maintenance List Hepatitis B Vaccine(1 of 3 - 3-dose series) Never done Covid-19 Vaccine(1) Never done Hepatitis C Screening Never done HIV Screening Never done DTaP,Tdap,Td Vaccine(1 - Tdap) Never done Mammogram Screening due on 06/12/2019 Lipid Screening due on 2022 Colorectal Cancer Screening Never done Influenza Vaccine(1) due on 02/07/2023 Pap Testing due on 03/20/2023 HPV Testing due on 03/20/2023 Depression Assessment Never done Diabetes Screening due on 01/17/2026 HPV Vaccine Aged Out ASSESSMENT/PLAN: 1. Encounter for immunization - ICD9: V03.89, ICD10: Z23 (primary diagnosis) - INFLUENZA VACCINE, AGE 6 MO - 64 YR, QUADRIVALENT (AFLURIA, FLULAVAL, FLUZONE) 2. Screening for diabetes mellitus - ICD9: V77.1, ICD10: Z13.1 - HGB A1C 3. Encounter for lipid screening for cardiovascular disease - ICD9: V77.91, V81.2, ICD10: Z13.220, Z13.6 - LIPID PANEL, NONFASTING 4. Gastroesophageal reflux disease without esophagitis - ICD9: 530.81, ICD10: K21.9 - Discussed lifestyle modifications including losing weight, limiting caffeine, no meals three hours before sleep, and head of bed elevation - Check CBC, CMP - Begin treatment with Prilosec 20 mg QD - OMEPRAZOLE 20 MG CAPSULE,DELAYED RELEASE 6. Numbness and tingling of both legs - ICD9: 782.0, ICD10: R20.0, R20.2 - XR LUMBAR MOTION 4V AP/LAT/ FLEX/EXT 7. Numbness and tingling of both upper extremities - ICD9: 782.0, ICD10: R20.0, R20.2 - XR CERV OTHER 4V AP/LAT/OBL 8. Upper back pain - ICD9: 724.5, ICD10: M54.9 Symptoms consistent with herniated disc - Xrays- see orders - XR THORACIC GENERAL 3V AP/LAT/SWIMMERS Js Craig APRN.ENVIRONMENTAL MONITORING TECHNICIAN Allergies As of Date: 06/20/2023 (No Known Allergies) Date Reviewed: 06/20/2023 Reviewed by: Pily Lynch Cma - Fully Assessed Reason for Visit: Establish Care [42] Primary Visit Diagnosis:Encounter for immunization [Z23] Other Visit Diagnoses:Screening for diabetes mellitus [Z13.1] Encounter for lipid screening for cardiovasc (more content not included)... Normal [facility] Comprehensive metabolic 2000 panelon 06-20-2023 Albumin [Mass/Vol] 4.4 g/dL Normal 3.9-4.9 [facility] Comment on above: Order Comment: Speci mode Type: BLOOD SPECIMEN Ordering Facility: [facility] Address: [address] [place] [address] Performed By: #### 2 4323-8, LIPNF #### [facility] CLIA [id number] [address] [facility] [id number] [place] [address] [place] ALP [Catalytic activity/Vol] 82 U/L Normal 34-[address] [facility] Comment on above: Order Comment: Speci men Type: BLOOD SPECIMEN Ordering Facility: [facility] Address: [address] [place] [address] Performed By: #### 2 4323-8, LIPNF #### [facility] CLIA [id number] [address] [place] [address] [place] ALT [Catalytic activity/Vol] 14 U/L Normal 7-[address] [facility] Comment on above: Order Comment: Speci men Type: BLOOD SPECIMEN Ordering Facility: [facility] Address: [address] [place] [address] Performed By: #### 2 4323-8, LIPNF #### [facility] CLIA [id number] [address] [place] [address] [place] Anion gap [Moles/Vol] 9 mmol/L Normal 9-18 [facility] Comment on above: Order Comment: Speci men Type: BLOOD SPECIMEN Ordering Facility: [facility] Address: [address] [place] [address] Performed By: #### 2 4323-8, LIPNF #### [facility] CLIA [id number] [address] [place] [address] [place] AST [Catalytic activity/Vol] 20 U/L Normal 13-[address] [facility] Comment on above: Order Comment: Speci men Type: BLOOD SPECIMEN Ordering Facility: [facility] Address: [address] [place] [address] Performed By: #### 2 4323-8, LIPNF #### [facility] CLIA [id number] [address] [place] [address] [place] Bilirubin [Mass/Vol] 0.9 mg/dL Normal 0.2-1.3 [facility] Comment on above: Order Comment: Speci men Type: BLOOD SPECIMEN Ordering Facility: [facility] Address: [address] [place] [address] Performed By: #### 2 4323-8, LIPNF #### [facility] CLIA [id number] [address] [place] [address] [place] Calcium [Mass/Vol] 9.0 mg/dL Normal 8.5-10.2 [facility] Comment on above: Order Comment: Speci men Type: BLOOD SPECIMEN Ordering Facility: [facility] Address: [address] [place] [address] Performed By: #### 2 4323-8, LIPNF #### [facility] CLIA [id number] [address] [place] [address] [place] Chloride [Moles/Vol] 104 mmol/L Normal 97-105 [facility] Comment on above: Order Comment: Speci men Type: BLOOD SPECIMEN Ordering Facility: [facility] Address: [address] [place] [address] Performed By: #### 2 4323-8, LIPNF #### [facility] CLIA [id number] [address] [place] [address] [place] CO2 [Moles/Vol] 24 mmol/L Normal 22-[address] [facility] Comment on above: Order Comment: Speci men Type: BLOOD SPECIMEN Ordering Facility: [facility] Address: [address] [place] [address] Performed By: #### 2 4323-8, LIPNF #### [facility] CLIA [id number] [address] [place] [address] [place] Creatinine [Mass/Vol] 0.65 mg/dL Normal 0.58-0.96 [facility] Comment on above: Order Comment: Speci men Type: BLOOD SPECIMEN Ordering Facility: [facility] Address: [address] [place] [address] Performed By: #### 2 4323-8, LIPNF #### [facility] CLIA [id number] [address] [place] [address] [place] Creatinine and Glomerular filtration rate.predicted panel (S/P/Bld) 111 mL/min/1.73m??? Normal >=[address] [facility] Comment on above: Order Comment: Speci men Type: BLOOD SPECIMEN Ordering Facility: [facility] Address: [address], [place] [address] Result Comment: Kim mated Glomerular Filtration Rate (eGFR) is calculated using the 2020 CKD-EPI creatinine equation. This equation utilizes serum creatinine, sex, and age as parameters. The creatinine assay has traceable calibration to isotope dilution-mass spectrometry. Refer to KDIGO guidelines for clinical interpretation. In patients with unstable renal function, e.g. those with acute kidney injury, the eGFR may not accurately reflect actual GFR. Performed By: #### 2 4323-8, LIPNF #### [facility] CLIA [id number] [address] [place] [address] [place] Glucose [Mass/Vol] 101 mg/dL High 74-99 [facility] Comment on above: Order Comment: Servando coello Type: BLOOD SPECIMEN Ordering Facility: [facility] Address: [address] [place] [address] Result Comment: The [place] Diabetes Association (ADA) provides guidance for cutoff values for fasting glucose and random glucose. The ADA defines fasting as no caloric intake for at least 8 hours. Fasting plasma glucose results between 100 to 125 mg/dL indicate increased risk for diabetes (prediabetes). Fasting plasma glucose results greater than or equal to 126 mg/dL meet the criteria for diagnosis of diabetes. In the absence of unequivocal hyperglycemia, results should be confirmed by repeat testing. In a patient with classic symptoms of hyperglycemia or hyperglycemic crisis, random plasma glucose results greater than or equal to 200 mg/dL meet the criteria for diagnosis of diabetes. Reference: Standards of Medical Care in Diabetes 2016, [place] Diabetes Association. Diabetes Care. 2016.39(Suppl 1). Performed By: #### 2 4323-8, LIPNF #### [facility] CLIA [id number] [address] [place] [address] [place] Potassium [Moles/Vol] 4.1 mmol/L Normal 3.7-5.1 [facility] Comment on above: Order Comment: Servando coello Type: BLOOD SPECIMEN Ordering Facility: [facility] Address: [address] [place] [address] Performed By: #### 2 4323-8, LIPNF #### [facility] CLIA [id number] [address] [place] [address] [place] Protein [Mass/Vol] 7.1 g/dL Normal 6.3-8.0 [facility] Comment on above: Order Comment: Speci men Type: BLOOD SPECIMEN Ordering Facility: [facility] Address: [address] [place] [address] Performed By: #### 2 4323-8, LIPNF #### [facility] CLIA [id number] [address] [place] [address] [place] Sodium [Moles/Vol] 137 mmol/L Normal 136-144 [facility] Comment on above: Order Comment: Speci men Type: BLOOD SPECIMEN Ordering Facility: [facility] Address: [address] [place] [address] Performed By: #### 2 4323-8, LIPNF #### [facility] CLIA [id number] [address] [place] [address] [place] Urea nitrogen [Mass/Vol] 13 mg/dL Normal 7-[address] [facility] Comment on above: Order Comment: Speci men Type: BLOOD SPECIMEN Ordering Facility: [facility] Address: [address] [place] [address] Performed By: #### 2 4323-8, LIPNF #### [facility] CLIA [id number] [address] [place] [address] [place] HbA1c (Bld)on 06-20-2023 Average glucose Estimated from glycated hemoglobin (Bld) [Mass/Vol] 108 mg/dL Normal [facility] Comment on above: Order Comment: Speci men Type: BLOOD SPECIMEN Ordering Facility: [facility] Address: [address] [place] [address] Result Comment: eAG: (Estimated average glucose) is a calculated value from HgbA1c and is risk control field representative of the average blood glucose level in the last 2-3 month period. Performed By: #### 5 5454-3 #### [facility] CLIA [id number] [address] [place] [address] [place] HbA1c (Bld) [Mass fraction] 5.4 % Normal 4.3-5.[address] [facility] Comment on above: Order Comment: Servando coello Type: BLOOD SPECIMEN Ordering Facility: [facility] Address: [address] [place] [address] Result Comment: [place] Diabetes Association guidelines indicate that patients with HgbA1c in the range 5.7-6.4% are at increased risk for development of diabetes, and intervention by lifestyle modification may be beneficial. HgbA1c greater or equal to 6.5% is considered diagnostic of diabetes. Performed By: #### 5 5454-3 #### [facility] CLIA [id number] [address] [place] LIPID PANEL, NONFASTINGon Cholesterol [Mass/Vol] 118 mg/dL Normal <200 [facility] Comment on above: Order Comment: Servando coello Type: BLOOD SPECIMEN Ordering Facility: [facility] Address: [address] [place] [address] Result Comment: <200 mg/dL, Desirable 200-239 mg/dL, Borderline high >239 mg/dL, High Performed By: #### 2 4323-8, LIPNF #### [facility] CLIA [id number] [address] [place] [address] [place] HDL CHOLESTEROL, NF 48 mg/dL Normal >39 [facility] Comment on above: Order Comment: Servando coello Type: BLOOD SPECIMEN Ordering Facility: [facility] Address: [address] [place] [address] Result Comment: 40-5 9 mg/dL, Acceptable >59 mg/dL, High: Negative risk factor for coronary heart disease <40 mg/dL, Low: Positive risk factor for coronary heart disease Performed By: #### 2 4323-8, LIPNF #### [facility] CLIA [id number] [address] [place] LDL CHOLESTEROL, NF 63 mg/dL Normal <100 [facility] Comment on above: Order Comment: Servando coello Type: BLOOD SPECIMEN Ordering Facility: [facility] Address: [address] [place] [address] Result Comment: <100 mg/dL, Optimal 100-129 mg/dL, Near optimal/above optimal 130-159 mg/dL, Borderline high 160-189 mg/dL, High >189 mg/dL, Very high Secondary prevention optimal LDL Cholesterol levels are recommended to be < 70 mg/dL Performed By: #### 2 4323-8, LIPNF #### [facility] CLIA [id number] [address] [facility] [place] [address] [place] LDL/HDL RATIO, NF 1.31 mg/dL Normal <2.54 [facility] Comment on above: Order Comment: Servando coello Type: BLOOD SPECIMEN Ordering Facility: [facility] Address: [address] [place] [address] Result Comment: Refe rence: 1. National Cholesterol Education Program ATP III Guideline At-A-Glance Quick Desk Reference: National Heart, Lung, and Blood Advance. National Institutes of Health. 2001: NIH Publication No. 01-3305. 2. An International Atherosclerosis Society position paper: global recommendations for the management of dyslipidemia: executive summary, Atherosclerosis. 2014: 232(2):410-413. Performed By: #### 2 4323-8, LIPNF #### [facility] CLIA [id number] [address] [place] [address] [place] NON HDL CHOL, NF 70 mg/dL Normal <130 [facility] Comment on above: Order Comment: Servando mode Type: BLOOD SPECIMEN Ordering Facility: [facility] Address: [address] [place] [address] Result Comment: <130 mg/dL, Optimal 130-159 mg/dL, Near optimal/above optimal 160-189 mg/dL, Borderline high 190-219 mg/dL, High >219 mg/dL, Very high Secondary prevention optimal non HDL Cholesterol levels are recommended to be <100 mg/dL Performed By: #### 2 4323-8, LIPNF #### [facility] CLIA [id number] [address] [place] [address] [place] T CHOL/HDL RATIO NF 2.46 mg/dL Normal <5.10 [facility] Comment on above: Order Comment: Speci men Type: BLOOD SPECIMEN Ordering Facility: [facility] Address: [address] [place] [address] Performed By: #### 2 4323-8, LIPNF #### [facility] CLIA [id number] [address] [place] [address] [place] TRIGLYCERIDES, NF 37 mg/dL Normal <150 [facility] Comment on above: Order Comment: Speci men Type: BLOOD SPECIMEN Ordering Facility: [facility] Address: [address] [place] [address] Result Comment: <150 mg/dL, Normal 150-199 mg/dL, Borderline high 200-499 mg/dL, High >499 mg/dL, Very high Performed By: #### 2 4323-8, LIPNF #### [facility] CLIA [id number] [facility] [place] [address] [place] VLDL CHOLESTEROL, NF 7 mg/dL Normal <30 [facility] Comment on above: Order Comment: Speci men Type: BLOOD SPECIMEN Ordering Facility: [facility] Address: [address] [place] [address] Performed By: #### 2 4323-8, LIPNF #### [facility] CLIA [id number] [facility] [place] [address] [place] No Panel Informationon 06-20 Radiology Study observation (narrative) [facility] XR CERVICAL 4V AP/LAT/OBLon 06-20-2023 XR CERVICAL 4V AP/LAT/OBL * * *Final Report* * * DATE OF EXAM: Jun 20 2023 9:50AM WOX [id number] - XR CERVICAL 4V AP/LAT/OBL / PROCEDURE REASON: multiple diagnoses * * * * Physician Interpretation * * * * EXAM TITLE: XR CERVICAL 4V AP/LAT/OBL EXAM DATE/TIME: 06/20/2023 9:50 AM COMPARISON: None. CLINICAL INDICATION/HISTORY: Numbness and tingling in the bilateral legs. TECHNIQUE: AP, lateral and oblique views of the cervical spine are presented. FINDINGS: No fractures or subluxations are noted. The disc spaces are grossly preserved. There is mild osteophyte formation. The neural foramina are patent. The prevertebral soft tissues are normal. IMPRESSION: Cervical spine mild degenerative changes. Corner Cutter Machine Operator: KELLY Transcribe Date/Time: Jun 23 2023 10:21A Dictated by : LOLI ALLEN MD This examination was interpreted and the report reviewed and electronically signed by: LOLI ALLEN MD on Jun 23 2023 10:23AM EST [id number] CN Normal [facility] XR LUMBAR 4V AP/LAT/ FLEX/EX Ton 06-20-2023 XR LUMBAR 4V AP/LAT/ FLEX/EXT * * *Final Report* * * DATE OF EXAM: Jun 20 2023 9:50AM WOX [id number] - XR LUMBAR 4V AP/LAT/ FLEX/EXT / PROCEDURE REASON: multiple diagnoses * * * * Physician Interpretation * * * * EXAM TITLE: XR LUMBAR 4V AP/LAT/ FLEX/EXT EXAM DATE/TIME: 06/20/2023 9:50 AM COMPARISON: None. CLINICAL INDICATION/HISTORY: Tingling in the leg. TECHNIQUE: AP, lateral, lateral extension, lateral flexion and cone down lateral views of the lumbar spine are presented. FINDINGS: There are five mhf-khf-kvwkkax lumbar vertebrae. No fracture or subluxations are noted. No change in alignment of the lumbar spine with lateral extension and lateral flexion. The disc spaces are well preserved. There is no significant osteophyte formation. IMPRESSION: Negative lumbar spine X-ray. Corner Cutter Machine Operator: KELLY Transcribe Date/Time: Jun 20 2023 2:40P Dictated by : LOLI ALLEN MD This examination was interpreted and the report reviewed and electronically signed by: LOLI ALLEN MD on Jun 20 2023 2:41PM EST [id number] CN Normal [facility] XR Lumbar spine Views W flex ion and W extensionon 06-20-2023 IMPRESSION: Negative lumbar spine X-ray. Corner Cutter Machine Operator: [facility] Transcribe Date/Time: Jun 20 2023 2:40P Dictated by : LOLI ALLEN MD This examination was interpreted and the report reviewed and electronically signed by: LOLI ALLEN MD on Jun 20 2023 2:41PM [facility] [place] DIVISION OF RADIOLOGY * * *Final Report* * * DATE OF EXAM: Jun 20 2023 9:50AM WOX [id number] - XR LUMBAR 4V AP/LAT/ FLEX/EXT / PROCEDURE REASON: multiple diagnoses * * * * Physician Interpretation * * * * EXAM TITLE: XR LUMBAR 4V AP/LAT/ FLEX/EXT EXAM DATE/TIME: 06/20/2023 9:50 AM COMPARISON: None. CLINICAL INDICATION/HISTORY: Tingling in the leg. TECHNIQUE: AP, lateral, lateral extension, lateral flexion and cone down lateral views of the lumbar spine are presented. FINDINGS: There are five ycy-cbd-[id number] lumbar vertebrae. No fracture or subluxations are noted. No change in alignment of the lumbar spine with lateral extension and lateral flexion. The disc spaces are well preserved. There is no significant osteophyte formation. DIVISION OF RADIOLOGY Provider, [facility] - 06/20/2023 * * *Final Report* * * DATE OF EXAM: Jun 20 2023 9:50AM WOX [id number] - XR LUMBAR 4V AP/LAT/ FLEX/EXT / PROCEDURE REASON: multiple diagnoses * * * * Physician Interpretation * * * * EXAM TITLE: XR LUMBAR 4V AP/LAT/ FLEX/EXT EXAM DATE/TIME: 06/20/2023 9:50 AM COMPARISON: None. CLINICAL INDICATION/HISTORY: Tingling in the leg. TECHNIQUE: AP, lateral, lateral extension, lateral flexion and cone down lateral views of the lumbar spine are presented. FINDINGS: There are five lla-fpt-vekcerg lumbar vertebrae. No fracture or subluxations are noted. No change in alignment of the lumbar spine with lateral extension and lateral flexion. The disc spaces are well preserved. There is no significant osteophyte formation. IMPRESSION IMPRESSION: Negative lumbar spine X-ray. Corner Cutter Machine Operator: KELLY Transcribe Date/Time: Jun 20 2023 2:40P Dictated by : LOLI ALLEN MD This examination was interpreted and the report reviewed and electronically signed by: LOLI ALLEN MD on Jun 20 2023 2:41PM [facility] XR Lumbar spine Views W flex ion and W extensionOrdered By: [facility] Provider on 06-20-2023 [facility] XR THORACIC 3V AP/LAT/SWIMME RSon 06-20-2023 XR THORACIC 3V AP/LAT/SWIMMERS * * *Final Report* * * DATE OF EXAM: Jun 20 2023 9:50AM WOX [id number] - XR THORACIC 3V AP/LAT/SWIMMERS / PROCEDURE REASON: Upper back pain * * * * Physician Interpretation * * * * EXAM TITLE: XR THORACIC 3V AP/LAT/SWIMMERS EXAM DATE/TIME: 06/20/2023 9:50 AM COMPARISON: None. CLINICAL INDICATION/HISTORY: Upper back pain TECHNIQUE: AP, swimmer's and lateral views of the thoracic spine are presented FINDINGS: No fractures or subluxations are noted. The disc spaces are grossly preserved. No obvious osteophyte formation. There is no paraspinal mass or bony destructive process. IMPRESSION: Unremarkable thoracic spine X-ray. Corner Cutter Machine Operator: PSCB Transcribe Date/Time: Jun 23 2023 2:36P Dictated by : LOLI ALLEN MD This examination was interpreted and the report reviewed and electronically signed by: LOLI ALLEN MD on Jun 23 2023 2:58PM EST [id number] CN Normal [facility] Comprehensive metabolic 2000 panelon 01-18-2023 Albumin [Mass/Vol] 4.2 g/dL 3.9 - 4.9 g/dL [facility] ALP [Catalytic activity/Vol] 74 U/L 34 - 123 U/L [facility] ALT [Catalytic activity/Vol] 17 U/L 7 - 38 U/L [facility] Anion gap [Moles/Vol] 12 mmol/L 9 - 18 mmol/L [facility] AST [Catalytic activity/Vol] 18 U/L 13 - 35 U/L [facility] Bilirubin [Mass/Vol] 0.7 mg/dL 0.2 - 1 .3 mg/dL [facility] Calcium [Mass/Vol] 9.4 mg/dL 8.5 - 10. 2 mg/dL [facility] Chloride [Moles/Vol] 103 mmol/L 97 - 10 5 mmol/L [facility] CO2 [Moles/Vol] 23 mmol/L 22 - 30 mmol/L [facility] Creatinine [Mass/Vol] 0.71 mg/dL 0.58 - 0.96 mg/dL [facility] Estimated Glomerular Filtration Rate 107 mL/min/1.73m >=60 mL/min/1.73m [facility] Glucose [Mass/Vol] 89 mg/dL 74 - 99 mg/dL [facility] Potassium [Moles/Vol] 3.9 mmol/L 3.7 - 5.1 mmol/L [facility] Protein [Mass/Vol] 7.3 g/dL 6.3 - 8.0 g/dL [facility] Sodium [Moles/Vol] 138 mmol/L 136 - 144 mmol/L [facility] Urea nitrogen [Mass/Vol] 13 mg/dL 7 - 21 mg/d L [facility] Vital Signs Date Time Vital Sign Value Performing Clinician Facility 02-16-2025 21:43-0400 Body temperature 97.8 [degF] Dr. Omega Sparrow DO Work Phone: [facility] 02-16-2025 21:43-0400 Diastolic blood pressure 74 mm[Hg] Dr. Omega Sparrow DO Work Phone: [facility] 02-16-2025 21:43-0400 Heart rate 71 /min Dr. Omega Sparrow DO Work Phone: [facility] 02-16-2025 21:43-0400 Respiratory rate 16 /min Dr. Omega Sparrow DO Work Phone: [facility] 02-16-2025 21:43-0400 SaO2% (BldA) [Mass fraction] 99 % Dr. Omega Sparrow DO Work Phone: [facility] 02-16-2025 21:43-0400 Systolic blood pressure 108 mm[Hg] Dr. Omega Sparrow DO Work Phone: [facility] 02-16-2025 17:09-0400 Body height 167.[address] Omega Sparrow DO Work Phone: [facility] 02-16-2025 17:09-0400 Body mass index (BMI) [Ratio] 32.4 kg/m2 Dr. Omega Sparrow DO Work Phone: [facility] 02-16-2025 17:09-0400 Body weight 91.[address] Omega Sparrow DO Work Phone: [facility] 02-23-2024 10:11-0400 Body mass index (BMI) [Ratio] 32.78 kg/m2 Cook John DO Work Phone: [facility] 02-23-2024 10:11-0400 Body temperature 98.01 [degF] Cook John DO Work Phone: [facility] 02-23-2024 10:11-0400 Body weight 89.36 kg Erik John DO Work Phone: [facility] 02-23-2024 10:11-0400 Diastolic blood pressure 80 mm[Hg] Erik John DO Work Phone: [facility] 02-23-2024 10:11-0400 Heart rate 62 /min Erik John DO Work Phone: [facility] 02-23-2024 10:11-0400 SaO2% (BldA) [Mass fraction] 99 % Erik John DO Work Phone: [facility] 02-23-2024 10:11-0400 Systolic blood pressure 110 mm[Hg] Erik John DO Work Phone: [facility] 01-17-2023 11:45-0400 Body temperature 96.49 [degF] Abby Kayleigh SURVEY WORKER.ENVIRONMENTAL MONITORING TECHNICIAN Work Phone: [facility] 01-17-2023 11:45-0400 Diastolic blood pressure 87 mm[Hg] Abby Kayleigh SURVEY WORKER.ENVIRONMENTAL MONITORING TECHNICIAN Work Phone: [facility] 01-17-2023 11:45-0400 Heart rate 60 /min Abby Kayleigh SURVEY WORKER.ENVIRONMENTAL MONITORING TECHNICIAN Work Phone: [facility] 01-17-2023 11:45-0400 Respiratory rate 18 /min Abby Kayleigh SURVEY WORKER.ENVIRONMENTAL MONITORING TECHNICIAN Work Phone: [facility] 01-17-2023 11:45-0400 SaO2% (BldA) [Mass fraction] 99 % Abby Potterthu CERON.ENVIRONMENTAL MONITORING TECHNICIAN Work Phone: [facility] 01-17-2023 11:45-0400 Systolic blood pressure 125 mm[Hg] Abby Victor APRN.ERIC Work Phone: [facility] Encounters Encounter Date Encounter Type Care Provider Facility Start: 03-31-2025 ambulatory No Primary Car e Physician Facility:[facility] Start: 03-30-2025 Encounter for other preprocedural examination Abran Munoz [facility] Start: 03-04-2025 End: 03-04-2025 Patient encounter procedure Rivka WANG -[facility] Work Phone: Start: 03-04-2025 End: 03-04-[address] Omega Sparrow DO Work Phone: -[facility] Start: 02-16-2025 End: 02-16-2025 Emergency department patient visit Dr. Omega Sparrow DO Work Phone: -Emergency Department Work Phone: Start: 03-09-2024 End: 03-09-2024 ambulatory ERIK AUGUSTIN Facility:[facility] Start: 03-09-2024 End: 03-09-2024 Subsequent hospital visit by physician Mayra Roque MD, PhD Work Phone: [facility] Comment on above: Screening for colon cancer [Z12.11] Start: 03-02-2024 End: 03-02-2024 Telephone encounter Trisha Azul RN [facility] [place] [facility] Comment on above: Colonoscopy ([place]ast die[place] pain & needs orthotist or prosthetist for colonoscopy screening) Start: 02-23-2024 End: 02-23-2024 Patient encounter procedure Erik Augustin DO Work Phone: [facility] Comment on above: DDD (degenerative di sc disease), lumbar (Primary Dx); Spinal stenosis of lumbar region without neurogenic claudication; Gastroesophageal reflux disease without esophagitis; Oral phase dysphagia; Varicose veins of both lower extremities with pain; Sciatica, right side; Encounter for screening mammogram for breast cancer; Screening for colon cancer; Screening for hyperlipidemia; Screening for thyroid disorder; Class 1 obesity with body mass index (BMI) of 32.0 to 32.9 in adult, unspecified obesity type, unspecified whether serious comorbidity present Start: 02-23-2024 End: 02-23-2024 ambulatory [facility][1] Facility:[facility] Start: 02-02-2024 Emergency department patient visit Facility:[id number] Start: 06-25-2023 ambulatory Js mendoza APRN.CNP Work Phone: Internal Medicine [facility] [place] Start: 06-20-2023 End: 06-20-2023 Subsequent hospital visit by physician Xr [facility] Work Phone: Radiology Comment on above: Numbness and tinglin g of both legs [R20.0, R20.2] Start: 06-20-2023 End: 06-20-2023 ambulatory JS CRAIG Facility:[facility] Start: 06-20-2023 End: 06-20-2023 ambulatory JS CRAIG Facility:[facility] Start: 06-20-2023 Encounter for genera l adult medical examination without abnormal findings JS CRAIG [facility] Start: 01-18-2023 Telephone encounter Natalie Davin rossi APRN.CNP Work Phone: [facility] Comment on above: Results Start: 01-17-2023 End: 01-17-2023 Patient encounter procedure Abby Victor SURVEY WORKER.ENVIRONMENTAL MONITORING TECHNICIAN Work Phone: [facility] Comment on above: Pain in both hands ( Primary Dx); Varicose veins of right lower extremity with pain Procedures Date Procedure Procedure Detail Performing Clinician Start: 02-16-2025 Urnls dip stick/tabl et reagent auto microscopy Dr. Omega Sparrow DO Work Phone: Start: 02-16-[address] Omega Sparrow DO Work Phone: Start: 02-16-2025 Computed tomography of abdomen and pelvis with intravenous contrast Dr. Omega Sparrow DO Work Phone: Start: 03-09-2024 Lipid 1996 panel - S rita or Plasma Mayra Roque MD, PhD Work Phone: Start: 06-20-2023 Radex spine cervical 4 or 5 views Js Craig SURVEY WORKER.ENVIRONMENTAL MONITORING TECHNICIAN Work Phone: Start: 06-20-2023 Lipid 1996 panel - S rita or Plasma Js Craig SURVEY WORKER.ENVIRONMENTAL MONITORING TECHNICIAN Work Phone: Start: 06-12-2018 Mammography Abby Potterk SURVEY WORKER.ENVIRONMENTAL MONITORING TECHNICIAN Work Phone: Plan of Treatment Date Care Activity Detail Author Start: 03-09-2029 Lipid panel Lipid Screening [facility] Start: 06-20-2028 Lipid panel Lipid Screening [facility] Start: 03-09-2027 [facility] Start: 06-20-2026 [facility] Start: 01-17-2026 DIABETES SCREEN DIABETES SCREEN [facility] Start: 02-16-2025 [facility] Start: 02-16-2025 [facility] Start: 03-09-2024 End: 03-09-2024 Patient encounter procedure 03/09/2024 10:30 AM EDT Appointment [facility] [address] [place] [address] Mayra Roque MD, PhD [address] [place] [address] Colonoscopy screening [facility] Comment on above: Colonoscopy screenin g Start: 02-23-2024 End: 02-22-2025 CBC W Auto Differential panel - Blood COMPLETE BLOOD COUNT AND DIFFERENTIAL Lab Routine Screening for hyperlipidemia Expected: 02/23/2024, Expires: 02/22/2025 [facility] Comment on above: Expected: 02/23/2024 , Expires: 02/22/2025 Start: 02-23-2024 End: 02-22-2025 Comprehensive metabolic 2000 panel - Serum or Plasma COMPREHENSIVE METABOLIC PANEL Lab Routine Screening for hyperlipidemia Expected: 02/23/2024, Expires: 02/22/2025 [facility] Comment on above: Expected: 02/23/2024 , Expires: 02/22/2025 Start: 02-23-2024 End: 02-22-2025 Lipid 1996 panel - Serum or Plasma LIPID PANEL BASIC Lab Routine Screening for hyperlipidemia Expected: 02/23/2024, Expires: 02/22/2025 [facility] Comment on above: Expected: 02/23/2024 , Expires: 02/22/2025 Start: 02-23-2024 End: 02-22-2025 Thyrotropin [Units/volume] in Serum or Plasma THYROID STIMULATING HORMONE Lab Routine Screening for thyroid disorder Expected: 02/23/2024, Expires: 02/22/2025 [facility] Comment on above: Expected: 02/23/2024 , Expires: 02/22/2025 Start: 02-23-2024 End: 05-24-2024 Urinalysis complete panel - Urine URINALYSIS, WITH MICROSCOPIC Lab Routine Screening for hyperlipidemia Expected: 02/23/2024, Expires: 05/24/2024 [facility] Comment on above: Expected: 02/23/2024 , Expires: 05/24/2024 Start: 02-08-2024 Covid-19 Vaccine ( season) Covid-19 Vaccine () [facility] Start: 02-08-2024 Covid-19 Vaccine () Covid-19 Vaccine () [facility] Start: 02-08-2024 Covid-19 Vaccine () Covid-19 Vaccine () [facility] Start: 02-08-2024 Influenza vaccination Influenza Vacc ine (#1) [facility] Start: 06-09-2023 Depression Assessment Depression Ass essment [facility] Start: 03-20-2023 HPV TESTING HPV TESTING [facility] Start: 03-20-2023 PAP TESTING PAP TESTING [facility] Start: 03-20-2023 Screening for malign ant neoplasm of cervix [facility] Start: 02-07-2023 Covid-19 Vaccine ( season) Covid-19 Vaccine (2022- season) [facility] Start: 02-07-2023 Influenza vaccination INFLUENZA (#1) [facility] Start: 2022 COLOGUARD (FIT-DNA) COLOGUARD (FIT-D NA) [facility] Start: 2022 Colonoscopy COLONOSCOPY [facility] Start: 2022 COLORECTAL CANCER SCREENING COLORECTAL CANCER SCREENING [facility] Start: [address] COLONOGRAPHY [facility] Start: 2022 DIABETES SCREEN DIABETES SCREEN [facility] Start: 2022 Diabetes Screening Diabetes Screenin g [facility] Start: 2022 FECAL OCCULT BLOOD FECAL OCCULT BLOO D [facility] Start: 2022 Lipid panel Lipid Screening [facility] Start: 2022 LIPID SCREEN LIPID SCREEN [facility] Start: 2022 Screening for malign ant neoplasm of colon [facility] Start: 2022 SIGMOIDOSCOPY SIGMOIDOSCOPY [facility] Start: 06-09-2022 DEPRESSION ASSESSMENT DEPRESSION ASS ESSMENT [facility] Start: 06-12-2019 Mammography MAMMOGRAM [facility] Start: 06-12-2019 Screening for malign ant neoplasm of breast Mammogram Screening [facility] Start: 2017 Screening for malign ant neoplasm of breast Mammogram Screening [facility] Start: 1998 Screening for malign ant neoplasm of cervix Cervical Cancer Screening [facility] Start: 1996 Hepatitis B Vaccine (1 of 3 - 19+ 3-dose series) Hepatitis B Vaccine (1 of 3 - 19+ 3-dose series) [facility] Start: 1996 Urine microalbumin profile [facility] Start: 11-25-1995 Anxiety Screening Anxiety Screening [facility] Start: 11-25-1995 Depression Screening Depression Scre ening [facility] Start: 11-25-1995 HEPATITIS C SCREENING HEPATITIS C [facility] Start: 11-25-1995 Hepatitis C screening Hepatitis C [facility] Start: 11-25-1995 HIV SCREENING HIV SCREENING [facility] Start: 11-25-1995 HIV screening HIV Screening [facility] Start: 05-26-1978 COVID-19 VACCINE (#1) COVID-19 VACCI NE (#1) [facility] Start: 1977 HEPATITIS B (1 of 3 - 3-dose series) HEPATITIS B (1 of 3 - 3-dose series) [facility] Start: 1977 Hepatitis B Vaccine (1 of 3 - 3-dose series) Hepatitis B Vaccine (1 of 3 - 3-dose series) [facility] End: 03-24-2025 DBT Breast - bilateral screening [facility] Routine Encounter for screening mammogram for breast cancer 1 Occurrences starting 02/23/2024 until 03/24/2025 [facility] Work Phone: Comment on above: 1 Occurrences starti ng 02/23/2024 until 03/24/2025 End: 07-24-2024 MARY SCREENING [facility] SCREENING Radiology Routine Encounter for screening mammogram for breast cancer 1 Occurrences starting 06/25/2023 until 07/24/2024 [facility] Work Phone: Comment on above: 1 Occurrences starti ng 06/25/2023 until 07/24/2024 End: 03-24-2025 MR Lumbar spine WO contrast MRI LUMBAR SPINE WO IVCON Radiology Routine Spinal stenosis of lumbar region without neurogenic claudication 1 Occurrences starting 02/23/2024 until 03/24/2025 [facility] Comment on above: 1 Occurrences starti ng 02/23/2024 until 03/24/2025 Patient Education ED Abdominal P ain Unkn Cause Fem ED BPV Vertigo [facility] Work Phone: End: 02-22-2025 Screening colonoscopy COLONOSCOPY SCREENING Endoscopy Routine Screening for colon cancer 1 Occurrences starting 02/23/2024 until 02/22/2025 [facility] Comment on above: 1 Occurrences starti ng 02/23/2024 until 02/22/2025 Troponin T.cardiac [Mass/volume] in Serum or Plasma by High sensitivity method [facility] Immunizations Immunization Date Immunization Notes Care Provider Fa shane 06-20-2023 influenza, injectabl e, quadrivalent, contains preservative Js Craig APRN.ERIC Work Phone: [facility] 06-20-2023 influenza virus vacc ine, unspecified formulation Xr [facility] Work Phone: [facility] 06-05-2018 influenza, injectabl e, quadrivalent, contains preservative Abby Victor LYNN Work Phone: [facility] Payers Date Payer Category Payer Self-pay Unknown [id number] Unknown [id number] Unknown [id number] Social History Date Type Detail Facility Start: 04-10-2016 End: 02-16-2025 Tobacco smoking status NHIS Never smoked tobacco [facility] Start: 04-10-2016 End: 02-23-2024 Tobacco use and exposure Smokeless tobacco non-user [facility] Start: 01-17-2023 End: 06-20-2023 Alcohol intake Current non-drinker of alcohol (finding) [facility] Start: 01-17-2023 End: 02-03-2024 History of Social function [facility] Start: 01-17-2023 End: 02-03-2024 Tobacco use panel [facility] Adult Depression Screening Assessment 0 [facility] Start: 1975 Sex Assigned At Not on file [facility] Start: 02-23-2024 Alcoholic beverage intake Lifetime non-drinker (finding) [facility] Start: 1975 Sex Assigned At Female W [facility] Clinical Notes 01-17-2023 to 03-04-2025 Telephone Encounter - Trisha Azul RN - 03/02/2024 3:39 PM EDTTelephone Encounter - Trisha Azul RN - 03/02/2024 3:39 PM Erik Nolasco DO - 02/23/2024 10:33 AM EDT Note Date & Type Note Facility 03-04-2025 Progress note [facility] 02-16-2025 Radiology Diagnostic study note [facility] Services [address] [place], [place] [id number] Abdomen/Pelvis W IV Cont ONLY MR#: [id number] Acct: [id number] Name: JERROD CUMMINGS Rep #: [id number] : 1975 F 49 From: Winter Alarcon MD PCP: Care Physician,No Primary Status: REG ER Study:Abdomen/Pelvis W IV Cont ONLY Date of E xam: 02/16/25 Exam# [id number] Ordering Dr: Jyotsna Sparrow DO PROCEDURE: ABDOMEN/PELVIS W IV CONT ONLY 02/16/2025 REASON FOR EXAM: ABDOMINAL PAIN TECHNIQUE: Procedure Code: [id number] Modality: CT Procedure: ABDOMEN/PELVIS W IV CONT ONLY Coronal and Sagittal reconstruction series were provided. CONTRAST: 100 mL of Isovue 370 One or more dose reduction techniques were used (e.g., Automated exposure control, adjustment of the mA and/or kV according to patient size, use of iterative reconstruction technique. RADIATION DOSE SUMMARY: DLP: 1220 mGycm COMPARISON: None FINDINGS: Limited sections of the lung bases demonstrate no focal pulmonary mass or consolidations. The liver, spleen, pancreas, and both adrenal glands demonstrate no acute findings. The gallbladder is surgically removed Tiny hiatal hernia; otherwise stomach is unremarkable.. The small bowel loops are not dilated. The appendix is normal. No colonic obstruction. There is no free air or significant free fluid. The kidneys are unremarkable. The urinary bladder is distended. The pelvic structures are intact. Right ovarian cyst measuring 1.7 x 1.5 cm. No significant lymphadenopathy. The aorta and IVC demonstrate no acute findings. Visualized osseous structures demonstrate no acute abnormality. CT/Abdomen/Pelvis W IV Cont ONLY IMPRESSION: No acute intra-abdominal process. [id number] CC: Dr. Omega Sparrow DO; No Primary Care Physician ~ Corner Cutter Machine Operator: Signed [facility] 01-25-2025 Note Patient Outreach (FP DOYL) -------- COELLOCANALESJERROD Ines ([id number]) 1975 F [place] Date Time Provider Department 01/25/25 ERIK AUGUSTIN During your visit today, we recorded the following information about you: Allergies As of Date: 01/25/2025 (No Known Allergies) Date Reviewed: 03/03/2024 Reviewed by: Sneha Murguia LPN - Fully Assessed Visit Diagnosis:Encounter for screening mammogram for breast cancer [Z12.31] Order(s):[facility] SCREENING [facility] [[id number]] Order #: [id number] FUTURE Prescriptions as of 02/25/2025 - NAPROXEN ORAL Take by mouth. - predniSONE (DELTASONE) 10 mg tablet Take 3 tablets by mouth for 3 days, then take 2 tablets by mouth for 3 days, then take 1 tablet by mouth for 3 days. - omeprazole (PRILOSEC) 40 mg capsule Take 1 capsule by mouth once daily. - omeprazole (PRILOSEC) 20 mg capsule Take 1 capsule by mouth daily before breakfast. 1/2 hr before meal. Problem List As Of Date 01/25/2025 Noted Resolved Chronic midline low back pain with bilateral sc*03/31/2018 Menstrual migraine without status migrainosus, *06/05/2018 DDD (degenerative disc disease), lumbar [M51.36*03/02/2024 Spinal stenosis of lumbar region without neurog*03/02/2024 Sciatica, right side [M54.31] 03/02/2024 Gastroesophageal reflux disease without esophag*03/02/2024 Varicose veins of both lower extremities with p*03/02/2024 Encounter Status:Closed by TANISHA MOELLERUSER on 02/25/25 [facility] 03-02-2024 Telephone encounter Note Spoke with patient's sister, who called [facility] to schedule patient for colonoscopy. [facility] since patient will need county health officer, has no insurance, & has epigastric pain & nausea. [facility] 03-02-2024 Miscellaneous Notes Spoke with patient's sister, who called [facility] to schedule patient for colonoscopy. Gave number for [facility] since patient will need county health officer, has no insurance, & has epigastric pain & nausea. documented in this encounter [facility] 02-23-2024 History of Present illness Narrative Images from the original note were not included. [facility], [address] [place] [address] Date of Evaluation: 02/23/2024 Patient Name: Jerrod Santiago : 1975 Chief Complaint: Patient presents with: [facility] Care ED Follow Up: 02/02/24 [facility] ER follow up for severe back pain Varicose Veins: Causing pain Heartburn: Hurts when drinking or eating Nursing Intake: There are no exam notes on file for this visit. Subjective Ms. Santiago is a 48 year old female who presents with the following complaint(s): The history is provided by the patient. The history is limited by a language barrier. A national van owner operator was used. Back Pain This is a recurrent problem. The problem occurs daily. The problem has not changed since onset.The pain is associated with no known injury. The pain is present in the lumbar spine. The pain radiates to the right thigh and right knee. Pertinent negatives include no chest pain, no numbness, no headaches and no weakness. GERD She complains of choking, dysphagia and heartburn. She reports no chest pain or no coughing. This is a chronic problem. The problem occurs frequently. The problem has been unchanged. The symptoms are aggravated by certain foods (most foods). Pertinent negatives include no fatigue. Leg Pain This is a chronic problem. The problem has been unchanged. Pertinent negatives include no numbness. Review of Systems Constitutional: Negative for fatigue and unexpected weight change. HENT: Negative for nosebleeds. Eyes: Negative for redness and visual disturbance. Respiratory: Positive for choking. Negative for apnea, cough and shortness of breath. Cardiovascular: Negative for chest pain, palpitations and leg swelling. Gastrointestinal: Positive for dysphagia and heartburn. Genitourinary: Negative for hematuria. Musculoskeletal: Positive for back pain. Neurological: Negative for dizziness, weakness, light-headedness, numbness and headaches. Hematological: Does not bruise/bleed easily. Psychiatric/Behavioral: The patient is not nervous/anxious. PAST MEDICAL HISTORY Diagnosis Date Kidney stones PAST SURGICAL HISTORY Procedure Laterality Date REMOVAL GALLBLADDER FAMILY HISTORY Problem Relation Age of Onset No Known Problems Mother No Known Problems Father Social History Tobacco Use Smoking status: Never Smokeless tobacco: Never Vaping Use Vaping status: Never Used Substance Use Topics Alcohol use: Never Drug use: Never Current Outpatient Medications Medication Sig NAPROXEN ORAL Take by mouth. predniSONE (DELTASONE) 10 mg tablet Take 3 tablets by mouth for 3 days, then take 2 tablets by mouth for 3 days, then take 1 tablet by mouth for 3 days. omeprazole (PRILOSEC) 40 mg capsule Take 1 capsule by mouth once daily. traMADol (ULTRAM) 50 mg tablet Take 1 tablet by mouth every 6 hours as needed for pain for up to 7 days. No current facility-administered medications for this visit. I have confirmed and edited as necessary the past medical, family and social histories, HPI, and ROS obtained by others. Objective BP 110/80 Pulse 62 Temp 98 Wt 197 lb (89.4kg) SpO2 99% Physical Exam Vitals and nursing note reviewed. Constitutional: General: She is not in acute distress. Appearance: Normal appearance. She is well-developed. She is not ill-appearing. HENT: Head: Normocephalic. Nose: Nose normal. Mouth/Throat: Pharynx: Uvula midline. Eyes: General: Lids are normal. Vision grossly intact. Gaze aligned appropriately. Extraocular Movements: Extraocular movements intact. Conjunctiva/sclera: Conjunctivae normal. Pupils: Pupils are equal, round, and reactive to light. Neck: Thyroid: No thyroid mass, thyromegaly or thyroid tenderness. Trachea: Trachea and phonation normal. Cardiovascular: Rate and Rhythm: Normal rate and regular rhythm. Pulses: Normal pulses. Heart sounds: Normal heart sounds. Pulmonary: Effort: Pulmonary effort is normal. Breath sounds: Normal breath sounds. Musculoskeletal: General: Normal range of motion. Right shoulder: Normal. Left shoulder: Normal. Cervical back: Normal, full passive range of motion without pain and neck supple. No spinous process tenderness. Thoracic back: Normal. Lumbar back: Normal. Right knee: Normal. Left knee: Normal. Right lower leg: No edema. Left lower leg: No edema. Skin: General: Skin is warm and dry. Comments: varicose veins Neurological: General: No focal deficit present. Mental Status: She is alert and oriented to person, place, and time. Mental status is at baseline. Sensory: Sensation is intact. Motor: Motor function is intact. Psychiatric: Attention and Perception: Attention and perception normal. Mood and Affect: Mood normal. Speech: Speech normal. Behavior: Behavior normal. Thought Content: Thought content normal. Judgment: Judgment normal. Data Reviewed: No new labs ASSESSMENT/PLAN: 1. DDD (degenerative disc disease), lumbar - ICD9: 722.52, ICD10: M51.36 (primary diagnosis) Avoid motrin, aleve or naproxen can make heartburn worse. - Start Tramadol as needed for pain. - TRAMADOL 50 MG TABLET 2. Spinal stenosis of lumbar region without neurogenic claudication - ICD9: 724.02, ICD10: M48.061 - Obtain MRI - Start Tramadol as needed for pain - Start prednisone Taper. - MRI LUMBAR SPINE WO IVCON - PREDNISONE 10 MG TABLET - TRAMADOL 50 MG TABLET 3. Sciatica, right side - ICD9: 724.3, ICD10: M54.31 4. Encounter for screening mammogram for breast cancer - ICD9: V76.12, ICD10: Z12.31 - MARY SCREENING W ANN MARIE 5. Screening for colon cancer - ICD9: V76.51, ICD10: Z12.11 - COLONOSCOPY SCREENING 6. Screening for hyperlipidemia - ICD9: V77.91, ICD10: Z13.220 - COMPLETE BLOOD COUNT AND DIFFERENTIAL - COMPREHENSIVE METABOLIC PANEL - LIPID PANEL BASIC - URINALYSIS, WITH MICROSCOPIC 7. Screening for thyroid disorder - ICD9: V77.0, ICD10: Z13.29 - THYROID STIMULATING HORMONE 8. Class 1 obesity with body mass index (BMI) of 32.0 to 32.9 in adult, unspecified obesity type, unspecified whether serious comorbidity present - ICD9: 278.00, V85.32, ICD10: E66.9, Z68.32 9. Varicose veins of both lower extremities with pain - ICD9: 454.8, ICD10: I83.813 - Refer to Vascular surgery - CONSULT TO VASCULAR SURGERY 10. Gastroesophageal reflux disease without esophagitis - ICD9: 530.81, ICD10: K21.9 - Start omeprazole - OMEPRAZOLE 40 MG CAPSULE,DELAYED RELEASE 11. Oral phase dysphagia - ICD9: 787.21, ICD10: R13.11 - Refer to Gastroenterology. - CONSULT TO GASTROENTEROLOGY Erik Augustin DO Return if symptoms worsen or fail to improve. Attestation: Scribe Attestation: The patient is seen and examined by Dr. Augustin and the following reflects his/her service. Scribed by Raghu Ward February 23, 2024 10:38 AMProvider Attestation: I, Erik Augustin DO personally performed the services described in this documentation. All medical record entries made by the scribe were at my direction and in my presence. I have reviewed the chart and discharge instructions (if applicable) and agree that the record reflects my personal performance and is accurate and complete. Electronically Signed: Erik Augustin DO, February 23, 2024 10:53 AM documented in this encounter [facility] 06-25-2023 Note Patient Outreach (IN TMMN) -------- JERROD FULTON ([id number]) 1975 F [facility] Date Time Provider Department 06/25/23 JS CRAIG During your visit today, we recorded the following information about you: Allergies As of Date: 06/25/2023 (No Known Allergies) Date Reviewed: 06/20/2023 Reviewed by: Pily Lynch Cma - Fully Assessed Visit Diagnosis:Encounter for screening mammogram for breast cancer [Z12.31] Order(s):[facility] SCREENING [[id number]] Order #: [id number] FUTURE Prescriptions as of 06/30/2023 - omeprazole (PRILOSEC) 20 mg capsule Take 1 capsule by mouth daily before breakfast. 1/2 hr before meal. Problem List As Of Date 06/25/2023 Noted Resolved Chronic midline low back pain with bilateral sc*03/31/2018 Menstrual migraine without status migrainosus, *06/05/2018 Encounter Status:Closed by EPIC, PRODUSER on 06/30/[address] [facility] 06-20-2023 Note HNO ID: [id number] Author: VINCE LARA RT(R) Service: ? Author Type: Resolution Specialist Type: Progress Notes Filed: 06/20/2023 09:47 Note Text: Radiology Service Progress Note PATIENT NAME: Jerrod Fulton DATE OF SERVICE: June 20, 2023 TIME: 9:15 AM PATIENT IDENTITY VERIFICATION COMPLETED USING TWO (2) IDENTIFIERS: Name and Date of confirmed by patient verbally. FALL SCREENING: Has the patient had 2 falls in the last year or 1 fall with injury or currently using an Ambulatory Assistive Device (Walker, Cane, Wheelchair, Crutches, etc.)? No PATIENT GENDER DATA: Female. status: : No status: NO. PATIENT RELEVANT IMPLANT DATA REVIEWED: Yes RADIOLOGY DEPARTMENT: General X-ray: Exam(s) Completed: Spine X-Ray(s): Cervical AP / LAT / OBL , Thoracic, and Lumbar AP / LAT / L5-S1 / FLEX-EXT PERIPHERAL IV DATA: Not applicable SIGNED BY: RT Belkis(R) June 20, 2023 9:[address] [facility] 06-20-2023 Note HNO ID: [id number] Author: JS CRAIG APRN.ENVIRONMENTAL MONITORING TECHNICIAN Service: ? Author Type: Nurse Practitioner Type: Progress Notes Filed: 06/20/2023 09:27 Note Text: Chief Complaint Patient presents with: Establish Care HPI Jerrod Fulton is a 47 year old female who presents here today for Above Complaints. Patient presents to establish care however patient presents with multiple acute complaints. Patient reports epigastric pain with nausea and heartburn for over 7 months. Reports use of OTC antacids. Patient reports pain with in upper thoracic spine with sneezing. Patient also reports numbness and tingling to upper and lower extremities worse when lying down. Past medical history, appointments, medications, allergies reviewed. Previous Medical History PAST MEDICAL HISTORY Diagnosis Date Chronic midline low back pain with bilateral sciatica 03/31/2018 Kidney stones 2014 [facility] Menstrual migraine without status migrainosus, not intractable 06/05/2018 Previous Surgical History PAST SURGICAL HISTORY Procedure Laterality Date PAST SURGICAL HISTORY OF 2006 gall bladder removed, Blas Lizama Family History FAMILY HISTORY Problem Relation Age of Onset Lipids Mother Peripheral Artery Disease Mother Arthritis Mother No Known Problems Father No Known Problems Sister No Known Problems Brother other (tuberculosis) Maternal Grandfather other (tuberculosis) Paternal Grandmother Cancer Paternal Grandfather lung No Known Problems Sister No Known Problems Sister No Known Problems Sister No Known Problems Sister No Known Problems Brother Patient Allergies ALLERGIES No Known Allergies Current Medications No current outpatient medications on file prior to visit. No current facility-administered medications on file prior to visit. Social History Social History Tobacco Use Smoking status: Never Smokeless tobacco: Never Substance Use Topics Alcohol use: No Drug use: No Review of Symptoms REVIEW OF SYSTEMS SEE HPI EXAM: BP 130/78 Pulse 68 Resp 14 Wt 84.8 kg (187 lb) LMP 03/15/2018 (Exact Date) BMI 32.86 kg/m? General Appearance: Well appearing, alert, in no acute distress, well-hydrated, well nourished.. Back:reflexes are 2+ and symmetric, motor and sensory appear to be normal, pain with flexion, ROM intact. Extension limited. Tenderness with palpation of muscles in lumbar region. Abdomen: Abdomen soft, non-tender. Bowel sounds normal. No masses, organomegaly, Positive findings: tenderness moderate epigastric. Neurologic: Gait normal. Reflexes normal and symmetric. Sensation grossly intact.. Health Maintenance List Hepatitis B Vaccine(1 of 3 - 3-dose series) Never done Covid-19 Vaccine(1) Never done Hepatitis C Screening Never done HIV Screening Never done DTaP,Tdap,Td Vaccine(1 - Tdap) Never done Mammogram Screening due on 06/12/2019 Lipid Screening due on 2022 Colorectal Cancer Screening Never done Influenza Vaccine(1) due on 02/07/2023 Pap Testing due on 03/20/2023 HPV Testing due on 03/20/2023 Depression Assessment Never done Diabetes Screening due on 01/17/2026 HPV Vaccine Aged Out ASSESSMENT/PLAN: 1. Encounter for immunization - ICD9: V03.89, ICD10: Z23 (primary diagnosis) - INFLUENZA VACCINE, AGE 6 MO - 64 YR, QUADRIVALENT (AFLURIA, FLULAVAL, FLUZONE) 2. Screening for diabetes mellitus - ICD9: V77.1, ICD10: Z13.1 - HGB A1C 3. Encounter for lipid screening for cardiovascular disease - ICD9: V77.91, V81.2, ICD10: Z13.220, Z13.6 - LIPID PANEL, NONFASTING 4. Gastroesophageal reflux disease without esophagitis - ICD9: 530.81, ICD10: K21.9 - Discussed lifestyle modifications including losing weight, limiting caffeine, no meals three hours before sleep, and head of bed elevation - Check CBC, CMP - Begin treatment with Prilosec 20 mg QD - OMEPRAZOLE 20 MG CAPSULE,DELAYED RELEASE 6. Numbness and tingling of both legs - ICD9: 782.0, ICD10: R20.0, R20.2 - XR LUMBAR MOTION 4V AP/LAT/ FLEX/EXT 7. Numbness and tingling of both upper extremities - ICD9: 782.0, ICD10: R20.0, R20.2 - XR CERV OTHER 4V AP/LAT/OBL 8. Upper back pain - ICD9: 724.5, ICD10: M54.9 Symptoms consistent with herniated disc - Xrays- see orders - XR THORACIC GENERAL 3V AP/LAT/SWIMMERS Js Craig APRN.ERIC [facility] 01-18-2023 Miscellaneous Notes Patient given results and verbalized understanding of instructions given. [facility] Please inform patient her cmp is normal. Follow up as directed. documented in this encounter [facility] 01-17-2023 Instructions Abby Victor APRN.CNP - 01/17/2023 12:02 PM EDT Will check labs and call with results For hands: Cock up wrist splints Advil 600 mg twice a day For legs: Compression Stocking Advil as above Follow up in April for further evaluation documented in this encounter [facility] 01-17-2023 Nurse Note Aerospace Physiological Technician service used for [place], ID number [id number]. Sarah Wells MA documented in this encounter [facility] 01-17-2023 History of Present illness Narrative Images from the original note were not included. Subjective The history is provided by the patient. No national van owner operator was used. ULI Fulton is a 47 year old female who presents today for CC of leg pain and swelling, as well as numbness in hands. She has had this off and on over the past few months. She has a history of varicose veins, this is the area that she is having the discomfort. She also having pain in hands after using in the same position. She has not used any treatment or medications. She no longer has a primary care physician. Patient does not speak [place], county health officer was used. LMP 03/15/2018 (Exact Date) Social History Tobacco Use Smoking status: Never Smokeless tobacco: Never Substance Use Topics Alcohol use: No Drug use: No PAST MEDICAL HISTORY Diagnosis Date Chronic midline low back pain with bilateral sciatica 03/31/2018 Kidney stones 2014 [facility] Menstrual migraine without status migrainosus, not intractable 06/05/2018 I have confirmed and edited as necessary, the [facility] Review of Systems Constitutional: Negative for chills and fever. Musculoskeletal: Positive for joint pain (hands, legs). Negative for myalgias. Skin: Negative for itching and rash. All other systems reviewed and are negative. Objective Physical Exam Vitals and nursing note reviewed. Cardiovascular: Pulses: Radial pulses are 2+ on the right side and 2+ on the left side. Popliteal pulses are 2+ on the right side and 2+ on the left side. Dorsalis pedis pulses are 2+ on the right side and 2+ on the left side. Posterior tibial pulses are 2+ on the right side and 2+ on the left side. Pulmonary: Effort: Pulmonary effort is normal. Musculoskeletal: Right wrist: Normal. Left wrist: Normal. Right hand: Normal. Left hand: Normal. Legs: Comments: + Phalen's noted Vericose veins noted on exam, with area of pain. No swelling noted in extremities, good cap refill. Skin: General: Skin is warm and dry. Neurological: Mental Status: She is alert and oriented to person, place, and time. Sensory: Sensation is intact. Motor: Motor function is intact. Deep Tendon Reflexes: Reflexes are normal and symmetric. Psychiatric: Mood and Affect: Affect normal. I spent a total of 55 minutes on the date of the service which included preparing to see the patient, [id number] patient care, completing clinical documentation, ordering medications, tests, or procedures, and care coordination (not separately reported), Aerospace Physiological Technician used. ASSESSMENT/PLAN: 1. Pain in both hands - ICD9: 729.5, ICD10: M79.641, M79.642 (primary diagnosis) Appears to be carpal tunnel Cock up wrist splints, ibuprofen Will check labs r/o diabetes - COMP METABOLIC PANEL 2. Varicose veins of right lower extremity with pain - ICD9: 454.8, ICD10: I83.811 Compressions stockings Elevation Follow up with PCP as needed. Diagnosis and treatment plan were discussed and questions were answered to the patient's satisfaction. Pt acknowledged understanding of concepts and follow up plan. Specific signs and symptoms that would indicate the need for higher level of care were discussed in detail warranting prompt ER evaluation. Abby Victor APRN.ERIC documented in this encounter [facility] Evaluation note Diagnosis Pain in both hands- Primary Varicose veins of right lower extremity with pain Varicose veins of lower extremities with other complications [facility] Diagnosis Encounter for screening mammogram for breast cancer [facility] Diagnosis Numbness and tingling of both legs Disturbance of skin sensation Upper back pain Numbness and tingling of both upper extremities [facility] Diagnosis Screening for colon cancer Special screening for malignant neoplasms, colon [facility] Diagnosis DDD (degenerative disc disease), lumbar- Primary Degeneration of lumbar or lumbosacral intervertebral disc Spinal stenosis of lumbar region without neurogenic claudication Spinal stenosis, lumbar region, without neurogenic claudication Gastroesophageal reflux disease without esophagitis Esophageal reflux Oral phase dysphagia Dysphagia, oral phase Varicose veins of both lower extremities with pain Varicose veins of lower extremities with other complications Sciatica, right side Encounter for screening mammogram for breast cancer Screening for colon cancer Special screening for malignant neoplasms, colon Screening for hyperlipidemia Screening for lipoid disorders Screening for thyroid disorder Class 1 obesity with body mass index (BMI) of 32.0 to 32.9 in adult, unspecified obesity type, unspecified whether serious comorbidity present [facility] noteNo assessment information availableW[facility] Work Phone: Evaluation note* Diagnosis Onset Date Resolution Status Admit Date Encounter for screening colonoscopy acute March 04, 2025 11:40am Heartburn acute February 11:40am Nausea acute February 11:40am [facility] Work Phone: Progress note Author Rivka Pedraza [facility] Note Date/Time March 04, 2025 12:13pm [facility] [address] [place] [address] OFFICE VISIT Date of Service: 03/04/25 MR#: [id number] Acct: [id number] Name: JERROD CUMMINGS Rep #: [id number] : 1975 Provider: KATHLEEN Toussaint Age/Sex: 49/F Location: [facility] Status: Signed Intake Vital Signs 02/16/25 17:09 Height 5 ft 6 in Intake Visit Reasons: [facility] ER 02/16 ABD PAIN Chief Complaint: Epigastric pain Allergies No Known Allergies Allergy (Verified 03/04/25 11:49) Medications ?Medication ?Instructions ?Recorded ?Confirmed ?Type meclizine 25 mg tablet 25 mg PO TID PRN dizziness # 20 tabs 02/16/25 03/04/25 Rx omeprazole 40 mg capsule,delayed 40 mg PO DAILY #14 ca ps 02/16/25 03/04/25 Rx release Nurse's Note: Nausea mostly after breakfast and constipated sometimes. [facility] Surgical History (Updated 02/17/25 @ 10:24 by Carlie Castrejon) History of cholecystectomy Social History (System 02/17/25 @ 10:24 by Carlie Castrejon) Smoking Status: Never smoker HPI HPI Chief Complaint: Epigastric pain Details: JERROD NUNO, is a 49 F who presents to the office today for establishment. [facility] ED 02.16.25 for abdominal pain and dizziness for a year. Pain is worse with eating or drinking. CBC and CMP unremarkable. LFTs and lipase normal. CT abdomen pelvis with no acute process. Discharged and started on Prevacid. OV 03.04.25 patient continues to have epigastric pain that is daily. Pain is burning and is not worse with oral intake. Patient does not feel that omeprazole has been helpful. Nausea has improved. She has never had an EGD or colonoscopy. Patient was scheduled for screening colonoscopy at 1 point but no one told her to the prep so she could have it done. ROS Const Constitutional: No anorexia, fatigue, fever(s), weight change or sleep problems Eyes Eyes: No change in vision ENT ENT: No abnormal hearing, difficulty swallowing, mouth lesions, tongue swelling or throat swelling Resp Respiratory: No cough or shortness of breath Cardio Cardiology: No chest pain at rest, chest pain with exertion, shortness of breathor dyspnea on exertion Gastro GI: Positive for abdominal pain, heartburn and nausea/dyspepsia; No difficulty swallowing Genitourinary-Female: No difficulty urinating or burning urination Musc Musculoskeletal: No joint pain, joint swelling, muscle weakness or decreased muscle mass Skin Skin: No hair loss in leg, yellowing of the eye, itchy eyes, rash, skin ulcer orskin swelling Neuro Neurology: No abnormal hearing, abnormal movements, confusion, unsteady gait/balance or memory loss Psych Psychiatric: No anxiety, No confusion and No memory loss Endo Endocrine: No fatigue or weight change Aller/Imm Allergy/Immunologic: No itchy eyes, throat swelling or tongue swelling Lalito/Lymp Hematologic/Lymphatic: No easy bleeding, easy bruising or enlarged lymph nodes Exam Const General: cooperative, healthy appearing and comfortable Nutritional Appearance: average body habitus Orientation: alert HENNE Head: normal to inspection Ears: hearing grossly normal bilaterally Nose: external nose normal Eyes General: appearance normal, both eyes and all related structures Neck Neck: normal visual inspection Chest Chest palpation & inspection: normal inspection of the chest Resp Effort & Inspection: normal respiratory effort Cardio Rate: regular rate Rhythm: regular rhythm GI Inspection: normal to inspection Auscultation: normal bowel sounds Palpation: soft and nontender Assessment and Plan Assessment and Plan (1) Heartburn: Status: Acute Plan: jerrod is a 49-year-old Emirati-speaking patient here today for evaluation of epigastric pain. Patient presented to [facility] ED for epigastric pain and vertigo. Workup was largely unremarkable. CT abdomen pelvis without acute processes. She was started on omeprazole. Patient continues to have epigastric pain that is burning and constant. She notes that prior to her ED visit she had seen other doctors who treated her with medications for her pain. Medications have not been helpful. Patient will undergo EGD to evaluate her upper GI tract. Patient has never had a screening colonoscopy. She notes that she was scheduled for 1 in the past but did not know she had to do a prep so they could not do it. She was scheduled for both of these procedures today. - EGD - Colonoscopy - Follow-up after procedures (2) Nausea: Status: Acute (3) Encounter for screening colonoscopy: Status: Acute Coding Level of Care Code Off vis,new,level 3 Diagnoses Heartburn R12 Nausea R11.0 Encounter for screening colonoscopy Z12.11 03/04/25 1221 <Electronically signed by Rivka WANG> Date _ Rivka WANG Cosigner Signature: Date (if applicable) CC: ~ [facility] Work Phone: Reason for referral (narrative)* Diagnostic Procedure Only (Routine) - Pending Review Specialty Diagnoses / Procedures Referred By Contac t Referred To Contact [facility] Diagnoses Encounter for screening mammogram for breast cancer Procedures MARY SCREENING SCREENING MAMMOGRAPHY BI 2-VIEW BREAST INC CAD Knoble, Js, SURVEY WORKER.ENVIRONMENTAL MONITORING TECHNICIAN [facility] [place] [address] [facility] [address] [place] [address] Referral ID Status Reason Start Date Expiration Date Visits Requested Visits Authorized [id number] Pending Review Auto-Generat ed Referral 06/25/2023 07/24/2024 1 1 [facility] for referral (narrative)* Diagnostic Procedure Only (Routine) - Pending Review Specialty Diagnoses / Procedures Referred By Contac t Referred To Contact XR IMAGING Diagnoses Numbness and tingling of both upper extremities Procedures XR CERV OTHER 4V AP/LAT/OBL RADEX SPINE CERVICAL 4 OR 5 VIEWS Js Craig APRN.CNP [address] [place] [address] [place] [address] Referral ID Status Reason Start Date Expiration Date Visits Requested Visits Authorized [id number] Pending Review Auto-Generat ed Referral 06/20/2023 07/19/2024 1 1 * Diagnostic Procedure Only (Routine) - Pending Review Specialty Diagnoses / Procedures Referred By Contac t Referred To Contact XR IMAGING Diagnoses Upper back pain Procedures XR THORACIC GENERAL 3V AP/LAT/SWIMMERS RADEX SPINE THORACIC 3 VIEWS Js Craig APRN.ENVIRONMENTAL MONITORING TECHNICIAN [address] [place] [id number] [place] [address] Referral ID Status Reason Start Date Expiration Date Visits Requested Visits Authorized [id number] Pending Review Auto-Generat ed Referral 06/20/2023 07/19/2024 1 1 * Diagnostic Procedure Only (Routine) - Pending Review Specialty Diagnoses / Procedures Referred By Contac t Referred To Contact XR IMAGING Diagnoses Numbness and tingling of both legs Procedures XR LUMBAR MOTION 4V AP/LAT/ FLEX/EXT RADEX SPINE LUMBOSACRAL MINIMUM 4 VIEWS Js Craig APRN.ENVIRONMENTAL MONITORING TECHNICIAN [address] [place] [address] Xr Imaging [facility]95 Referral ID Status Reason Start Date Expiration Date Visits Requested Visits Authorized [id number] Pending Review Auto-Generat ed Referral 06/20/2023 07/19/2024 1 1 [facility] for referral (narrative)No reason for referral information availableWUniversity Hospitals [facility] Work Phone: Reason for visit Narrative* Diagnostic Procedure Only (Routine) - Pending Review Specialty Diagnoses / Procedures Referred By Paty geiger Referred To Contact XR IMAGING Diagnoses Numbness and tingling of both upper extremities Procedures XR CERV OTHER 4V AP/LAT/OBL RADEX SPINE CERVICAL 4 OR 5 VIEWS Js Craig APRN.ENVIRONMENTAL MONITORING TECHNICIAN [address] [place] [address] Xr Imaging [facility]95 Referral ID Status Reason Start Date Expiration Date Visits Requested Visits Authorized [id number] Pending Review Auto-Generat ed Referral 06/20/2023 07/19/2024 1 1 [facility] for visit Narrative* Outpatient Procedure (Routine) - Authorized Specialty Diagnoses / Procedures Referred By Paty geiger Referred To Contact [facility] Diagnoses Screening for colon cancer Procedures COLONOSCOPY SCREENING COLONOSCOPY FLX DX W/COLLJ SPEC WHEN PFRMD Erik Augustin [address] [place] [address] [facility] [address] [place] [address] Referral ID Status Reason Start Date Expiration Date Visits Requested Visits Authorized [id number] Authorized Auto-Generate d Referral Financial Clearance Required - Self Pay Patient Cleared - Qualified HCAP/501/FA 02/24/2024 05/24/2024 99 99 [facility] Summary Purpose Family History No Family History Records FoundNo Family History Records FoundNo Family History Records FoundNo Family History Records FoundNo Family History Records Found Advance Directives No Advanced Directives Records Found Advance Directive Response Recorded Date/ Time Do you have a Healthcare Power of Adventure Education Teacher? No February 16, 2025 6:10pm Reason for Referral Specialty Diagnoses / Procedures Referred By Contac t Referred To Contact Gastroenterology Diagnoses Oral phase dysphagia Procedures CONSULT TO GASTROENTEROLOGY OFFICE/OUTPATIENT [facility] 60 MINUTES Erik Augustin, [place] [address] Referral ID Status Reason Start Date Expiration Date Visits Requested Visits Authorized [id number] Authorized PCP Requested Referral 02/23/2024 02/22/2025 1 1 Specialty Diagnoses / Procedures Referred By Contac t Referred To Contact Vascular Surgery Diagnoses Varicose veins of both lower extremities with pain Procedures CONSULT TO VASCULAR SURGERY OFFICE/OUTPATIENT [facility] 60 MINUTES Erik Augustin, [place] [address] Referral ID Status Reason Start Date Expiration Date Visits Requested Visits Authorized [id number] Authorized PCP Requested Referral 02/23/2024 02/22/2025 1 1 Specialty Diagnoses / Procedures Referred By Contac t Referred To Contact [facility] Diagnoses Spinal stenosis of lumbar region without neurogenic claudication Procedures MRI LUMBAR SPINE WO IVCON MRI SPINAL CANAL LUMBAR W/O CONTRAST MATERIAL Erik Augustin, [place] [address] [place] [address] Referral ID Status Reason Start Date Expiration Date Visits Requested Visits Authorized [id number] New Request Auto-Generat ed Referral 02/23/2024 03/24/2025 1 1 Specialty Diagnoses / Procedures Referred By Contac t Referred To Contact [facility] Diagnoses Screening for colon cancer Procedures COLONOSCOPY SCREENING COLONOSCOPY FLX DX W/COLLJ SPEC WHEN PFRMD Erik Augustin, [place] [address] [facility] [address] [place] [address] Referral ID Status Reason Start Date Expiration Date Visits Requested Visits Authorized [id number] Authorized Auto-Generate d Referral Financial Clearance Required - Self Pay Patient Cleared - Qualified HCAP/501/FA 02/24/2024 05/24/2024 99 99 Specialty Diagnoses / Procedures Referred By Paty t Referred To Contact [facility] Diagnoses Encounter for screening mammogram for breast cancer Procedures MARY SCREENING W ANN MARIE SCREENING DIGITAL BREAST TOMOSYNTHESIS BI SCREENING MAMMOGRAPHY BI 2-VIEW BREAST INC [facility] [address] [place] [address] [facility] [address] [place] [address] Referral ID Status Reason Start Date Expiration Date Visits Requested Visits Authorized [id number] New Request Auto-Generat ed Referral 02/23/2024 03/24/2025 1 1 Chief Complaint and Reason for Visit Chief Complaint Admit Date ABD PAIN February 16, 2025 5:09pm Chief Complaint Admit Date ABD PAIN February 16, 2025 5:09pm [facility] ER 02/16 ABD PAIN March 04 11:40am Reason for Visit Admit Date Encounter for screening colonoscopy Sept emb2024 11:40am Heartburn March 04, 2025 11:40am Nausea March 04, 2025 11:40am Additional Source Comments Source Comments (unrecognize d section and content) In the event this informatio n is protected by the Federal Confidentiality of Alcohol and Drug Abuse Patient Records regulations: The Federal rules restrict any use of the information to criminally investigate or prosecute any alcohol or drug abuse patient.[facility] the event this information is protected by the Federal Confidentiality of Alcohol and Drug Abuse Patient Records regulations: The Federal rules restrict any use of the information to criminally investigate or prosecute any alcohol or drug abuse patient.[facility] the event this information is protected by the Federal Confidentiality of Alcohol and Drug Abuse Patient Records regulations: The Federal rules restrict any use of the information to criminally investigate or prosecute any alcohol or drug abuse patient.[facility] the event this information is protected by the Federal Confidentiality of Alcohol and Drug Abuse Patient Records regulations: The Federal rules restrict any use of the information to criminally investigate or prosecute any alcohol or drug abuse patient.[facility] the event this information is protected by the Federal Confidentiality of Alcohol and Drug Abuse Patient Records regulations: The Federal rules restrict any use of the information to criminally investigate or prosecute any alcohol or drug abuse patient.[facility] the event this information is protected by the Federal Confidentiality of Alcohol and Drug Abuse Patient Records regulations: The Federal rules restrict any use of the information to criminally investigate or prosecute any alcohol or drug abuse patient.[facility] the event this information is protected by the Federal Confidentiality of Alcohol and Drug Abuse Patient Records regulations: The Federal rules restrict any use of the information to criminally investigate or prosecute any alcohol or drug abuse patient.[facility] Reason for Visit (unrecogniz ed section and content) Reason Comments Hand Pain Bilateral hands and feet pain, mostly in AM x 6 months Edema Bilateral swelling i n legs Reason Comments Results Reason Comments Colonoscopy Epigastric pain & ne eds orthotist or prosthetist for colonoscopy screening Reason Comments Establish Care ED Follow Up 02/02/24 [facility] low up for severe back pain Varicose Veins Causing pain Heartburn Hurts when drinking or eating Specialty Diagnoses / Procedures Referred By Paty geiger Referred To Contact [facility] Diagnoses Lumbar pain, acute flare Procedures PCP establish care and treat Js Cabrales APRN.CNP [address] [place] [address] [place] [id number] Referral ID Status Reason Start Date Expiration Date Visits Requested Visits Authorized [id number] Authorized Financial Clearance Required - Self Pay Patient Cleared - Qualified 100% FAS 02/02/2024 05/04/2024 99 99 Care Teams (unrecognized sec tion and content) Signal Intelligence Analyst Relationship Specialty Start Date End Date Js Craig APRN.CNP [address] [place] [address] [id number] PCP - General Family Medicine 06/20/23 Signal Intelligence Analyst Relationship Specialty Start Date End Date Js Craig APRN.CNP [address] [place] [id number] PCP - General Family Medicine 06/20/23 Signal Intelligence Analyst Relationship Specialty Start Date End Date Js Craig APRN.ENVIRONMENTAL MONITORING TECHNICIAN [facility] [place] [address] PCP - General Family Medicine 06/20/23 Signal Intelligence Analyst Relationship Specialty Start Date End Date JohnChristie sunland DO [facility] [address] [place] [id number] PCP - General Family Medicine 02/23/24 Js Craig APRN.ENVIRONMENTAL MONITORING TECHNICIAN [address] [place] [phone] Family Medicine 02/02/24 Signal Intelligence Analyst Relationship Specialty Start Date End Date Erik Augustin DO [address] [place] [phone] PCP - General Family Medicine 02/23/24 Team Status: Active Member Role/Relationship Status Dates No Primary Care Physician Primary Care Provider Active Team Status: Inactive Member Role/Relationship Status Dates Dr. Omega Sparrow DO Emergency Provider Active S tart: February 16, 2025 End: February 16, 2025 No Primary Care Physician Primary Care Provider Active Start: February 16, 2025 End: February 16, 2025 Team Status: Active Member Role/Relationship Status Dates No Primary Care Physician Primary care physician Activ e Team Status: Inactive Member Role/Relationship Status Dates Dr. Omega Sparrow DO Attending physician Active Start: February 16, 2025 End: February 16, 2025 Dr. Omega Sparrow DO Emergency Departmen t Physician Active Start: February 16, 2025 End: February 16, 2025 No Primary Care Physician Primary care physician Activ e Start: February 16, 2025 End: February 16, 2025 Team Status: Inactive Member Role/Relationship Status Dates No Primary Care Physician Primary care physician Activ e Start: March 04, 2025 End: March 04, 2025 No Primary Care Physician Referring Provider Active Start: March 04, 2025 End: March 04, 2025 KATHLEEN Toussaint Attending physician Active Start: March 04, 2025 End: March 04, 2025 INFORMATION SOURCE (unrecogn ized section and content) DATE CREATED AUTHOR 02/03/2024 [facility] DATE CREATED AUTHOR AUTHOR'S ORGANIZ ATION 02/24/2024 [facility] DATE CREATED AUTHOR AUTHOR'S ORGANIZ ATION 03/10/[address] [facility] DATE CREATED AUTHOR AUTHOR'S ORGANIZ ATION 02/26/2025 [facility] DATE CREATED AUTHOR AUTHOR'S ORGANIZ ATION 03/30/2025 [facility] Goals (unrecognized section and content) Goals may be documented in a n alternate sectionGoals may be documented in an alternate section FOR RECORDS PERTAINING TO PATIENTS WHO ARE OR HAVE BEEN ENROLLED IN A CHEMICAL DEPENDENCY/SUBSTANCEABUSE PROGRAM, SOME INFORMATION MAY BE OMITTED. This clinical summary was aggregated from multiple sources. Caution should be exercised in using it in the provision of clinical care. This summary normalizes information from multiple sources, and as a consequence, information in this document may materially change the coding, format and clinical context of patient data. In addition, data may be omitted in some cases. CLINICAL DECISIONS SHOULD BE BASED ON THE PRIMARY CLINICAL RECORDS. [employer] provides no warranty or guarantee of the accuracy or completeness of information in this document.
--- NOTE | 2025-03-31 06:40 | HP.PCM_ITS ---
HPI - General General Date of Admission: 03/31/25 Date of Service: 03/31/25 Chief Complaint: Abdominal pain and screening colonoscopy HPI Narrative BETTY NUNO, is a 49 F who presents [ Chief Complaint: Epigastric pain and wanting a screening colonoscopy [facility] ED 02.16.25 for abdominal pain and dizziness for a year. Pain is worse with eating or drinking. CBC and CMP unremarkable. LFTs and lipase normal. CT abdomen pelvis with no acute process. Discharged and started on Prevacid. OV 03.04.25 patient continues to have epigastric pain that is daily. Pain is burning and is not worse with oral intake. Patient does not feel that omeprazole has been helpful. Nausea has improved. She has never had an EGD or colonoscopy. Patient was scheduled for screening colonoscopy at 1 point but no one told her to the prep so she could have it done. [facility] Medical History Migraine headache Restless legs Vertigo Gastric reflux Varicose veins of bilateral lower extremities with pain Non-smoker History of kidney stones Home Medications ?Medication ?Instructions ?Recorded ?Last Taken ?Type meclizine 25 mg tablet 25 mg PO TID PRN dizziness # 20 tabs 02/16/25 Unknown Rx omeprazole 40 mg capsule,delayed 40 mg PO DAILY #14 ca ps 02/16/25 Unknown Rx release Allergy/AdvReac Type Severity Reaction Status Date / Time No Known Allergies Allergy Verified 03/30/25 10:09 Surgical History History of cholecystectomy Social History Smoking Status: Never smoker ROS Constitutional Constitutional: Denies fatigue, fever(s), poor appetite, weight gain or weight loss Gastrointestinal Gastrointestinal: Denies belching, bloating, change in bowel habits, change in stool character, chewing difficulty, coffee ground emesis, constipation, cramping, diarrhea, dyspepsia, dysphagia, early satiety, excessive flatus, fecal incontinence, heartburn, hematemesis, hematochezia, hemorrhoids, loose stools, melena, nausea, odynophagia, rectal bleeding, tenesmus, vomiting or weight changes Physical Exam Const alert, oriented x3, no apparent distress and healthy appearing General Appearance: cooperative GI normal to inspection, nondistended, normoactive bowel sounds, soft to palpation, non-tender and non-distended Percussion: normal to percussion Rectal Exam: deferred Assessment & Plan Assessment/Plan (1) Encounter for screening colonoscopy: (2) Nausea: (3) Heartburn: PLAN: Assessment and Plan Assessment and Plan (1) Heartburn: Status: Acute Plan: betty is a 49-year-old Kinyarwanda-speaking patient here today for evaluation of epigastric pain. Patient presented to [facility] ED for epigastric pain and vertigo. Workup was largely unremarkable. CT abdomen pelvis without acute processes. She was started on omeprazole. Patient continues to have epigastric pain that is burning and constant. She notes that prior to her ED visit she had seen other doctors who treated her with medications for her pain. Medications have not been helpful. Patient will undergo EGD to evaluate her upper GI tract. Patient has never had a screening colonoscopy. She notes that she was scheduled for 1 in the past but did not know she had to do a prep so they could not do it. She was scheduled for both of these procedures today. - EGD - Colonoscopy - Follow-up after procedures (2) Nausea: Status: Acute (3) Encounter for screening colonoscopy: Status: Acute]
[2025-03-31 06:53] LABS: Internal QC Validated? YES +Cl - CLEAR BKGD; Pregnancy, Urine Negative Negative; Record Kit Lot#,Urine Preg 0000980607
[2025-03-31] MEDS: Lactated Ringers 1,000 ML 15 ML IV (06:55)
--- NOTE | 2025-03-31 07:00 | COLBX_PTH ---
PATIENT: JERROD CUMMINGS LOC: EN U#:[id number] AGE/SX: 49/F ROOM: RE03/31/[address]: Dr. Abran Munoz DO : 1975 BED: DIS: 03/31/2025 SPEC #: [id number] RECD: 03/31/25 08:10 STATUS: DORON RETrent #: [id number] KAY: 03/31/25 07:[address]: Abran Munoz DEPT: SURGICAL PATHOLOGY RECD BY: Cale Estrada ENTERED: 03/31/25 10:59 SP TYPE: COLON BX OTHR DR: Patricia Primary Care Phys Tissues: A - Duodenum, NOS B - Gastric mucous membrane C - Gastric mucous membrane Procedures: Surgery Specimen Level IV HEADER OPERATION: Colonoscopy, EGD, biopsy PRE-OP DIAGNOSIS: Encounter for screening colonoscopy, nausea, heartburn TISSUE SUBMITTED: A- Duodenum biopsy, B- Gastric body biopsy, C- Gastric cardia biopsy MICROSCOPIC DIAGNOSIS A. Duodenum, biopsy: - Normal villous architecture with no specific pathologic change. B. Gastric body, biopsy: - Chronic gastritis. - POSITIVE FOR HELICOBACTER-LIKE ORGANISMS (H&E STAIN). C. Gastric cardia, biopsy: - Chronic gastritis. - POSITIVE FOR HELICOBACTER-LIKE ORGANISMS (H&E STAIN). MICROSCOPIC DESCRIPTION Slides are reviewed. GROSS DESCRIPTION A. Received in fixative is one container labeled with the patient's name and designated Duodenum biopsy. The specimen consists of two irregular fragments of posey tissue that measure 0.3 and 0.5 cm. The specimen is totally submitted in one cassette. B. Received in fixative is one container labeled with the patient's name and designated Gastric body biopsy. The specimen consists of multiple irregular fragments of posey tissue that in aggregate measure 0.8 x 0.6 x 0.1 cm. The specimen is totally submitted in one cassette. C. Received in fixative is one container labeled with the patient's name and designated Gastric cardia biopsy. The specimen consists of one irregular fragment of posey tissue that measures 0.5 cm. The specimen is totally submitted in one cassette. AR 03/31/2025 CPT:57584h3
--- NOTE | 2025-03-31 07:06 | PRE.ANES_ITS ---
ASA Classification* ASA Classification ASA Classification: 2 Assessment & Plan Anesthesia* Anesthesia Assessment Anesthesia Assessment: Discussed sedation and/or anesthesia options, risks, benefits, and alternatives with patient/parents/legal guardian/POA. Questions invited. The patient/parents/legal guardian/POA seems to understand and agrees to proceed with anesthesia plan. Reviewed the physical assessment, medical history, allergy history and patient home medications list prior to surgery/procedure/anesthetic and documented any changes. Performed airway and anesthesia risk assessments. Procedural Plan Add'l anesthesia plan details: Interpreters was used for this case. ID Number of computational theory scientist is [id number] Anesthesia Type Anesthesia Type: MAC History Source History Obtained from:: Patient and Chart Anesthesia Focused Assessment* Temperature: 98.1 F Pulse Rate: 71 Blood Pressure: 103/73 Respiratory Rate: 18 Pulse Ox: 100 Oxygen Delivery Method: Room Air Airway Assessment Mouth opens: >3 cm Mallampati Score: II Teeth Condition: Intact and Missing Neck Range of motion (ROM): Full ROM Labs Anesthesia Preop lab: CBC WBC, (4.4-11.0) 7.8 K/mm3 02/16/25, 17:55 RBC, (4.2-5.4) 4.37 M/mm3 02/16/25, 17:55 Hgb, (12.0-15.0) 10.9 g/dL L 02/16/25, 17:55 Hct, (37-47) 34.2 % L 02/16/25, 17:55 Plt Count, (150-450) 318 K/mm3 02/16/25, 17:55 CHEMISTRY Potassium, (3.3-5.1) 3.7 mmol/L 02/16/25, 17:55 Sodium, (133-145) 138 mmol/L 02/16/25, 17:55 BUN, (4-19) 15 mg/dL 02/16/25, 17:55 Creatinine, (0.70-1.20) 0.66 mg/dL L 02/16/25, 17:55 Glucose, (70-99) 104 mg/dL H 02/16/25, 17:55 COAG HCG, Quant, (<9 non-preg) 89424 mIU/mL H 10/07/12, 14:0 2 Urine Test Negative Negative Today, 06:40 Pre-Assessment Diagnosis/Proposed Procedure Planned Operative Procedure(s): egd, cscope Anesthesia History 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 When Was Last Pacemaker Check QUESTION #4 FULL TEXT: You/Your Family Experience fever (hyperthermia) with Anesthesia Last Oral Intake Last Oral intake: Last Oral Intake NPO since 05:00 03/31/25 06:51 Meds taken in AM with sips of water? Meds patient instructed to take am of surgery PONV PONV - electronic parts designer: PONV - electronic parts designer Female Yes 03/30/25 10:10 HX of Motion Sickness No 03/30/25 10:10 HX of N/V After Surgery No 03/30/25 10:10 Non-Smoker Yes 03/30/25 10:10 Duration of Surgery greater No 03/30/25 10:10 than 60 minutes Number of Risk Factors 2 03/30/25 10:10 PONV Score Moderate Risk 03/30/25 10:10 Height & Weight Height & Weight: Anesthesia: Height & Weight Height 5 ft 6 in 03/31/25 06:51 Weight: 88 kg 03/31/25 06:51 Body Mass Index (BMI) 31.3 03/31/25 06:51 Respiratory Assessment Respiratory Assessment - electronic parts designer: Respiratory Tract Infection Hx - electronic parts designer Hx Respiratory Tract Infection No 03/30/25 10:10 STOP Sleep Apnea STOP Sleep Apnea - electronic parts designer: STOP Sleep Apnea - electronic parts designer Hx Hypertension No 03/30/25 10:10 Hx Sleep Apnea No 03/30/25 10:10 CPAP BIPAP Do you snore loudly (louder No 03/30/25 10:10 than talking or can be heard Do you often feel tired/ No 03/30/25 10:10 fatigued/ sleepy during daytime? Has anyone observed you stop No 03/30/25 10:10 breathing during sleep? STOP Results Negative 03/30/25 10:10 QUESTION #5 FULL TEXT : Do you snore loudly (louder than talking or can be heard through closed doors)? 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 Specify any problems Hx of Preganancy in last 3 N/A 03/30/25 10:10 Months Nurse Filling Out Transfusion NBUCHER 03/30/25 10:10 & Questions: Date: 03/30/25 03/30/25 10:10 Time: 10:14 03/30/25 10:10 Patient unable to answer at this time (ie. confused, unrespo /Reproduction History /Reproductive History - electronic parts designer: /Reproductive Hx- electronic parts designer Hx Now No 03/30/25 10:10 Gestational Age (in weeks): EDC: Hx Hx Para Hx Section SAB No 03/30/25 10:10 Active Medications Active Medications: Current Medications Generic Name Dose Route Start Last Admin Trade Name Freq PRN Reason Stop Dose Admin Lactated Ringer's 1,000 mls @ 15 mls/hr 03/31/25 06:30 03/31/25 06:55 IV 15 mls/hr .Q48H TOYA Administration PFSH Medical History Migraine headache Restless legs Vertigo Gastric reflux Varicose veins of bilateral lower extremities with pain Non-smoker History of kidney stones Home Medications ?Medication ?Instructions ?Recorded ?Last Taken ?Type meclizine 25 mg tablet 25 mg PO TID PRN dizziness # 20 tabs 02/16/25 Unknown Rx omeprazole 40 mg capsule,delayed 40 mg PO DAILY #14 ca ps 02/16/25 Unknown Rx release Allergy/AdvReac Type Severity Reaction Status Date / Time No Known Allergies Allergy Verified 03/31/25 06:50 Surgical History History of cholecystectomy Social History Smoking Status: Never smoker Review of Systems (Anesthesia) ROS Narrative System reviewed and no additional complaints, except as documented.
--- NOTE | 2025-03-31 08:06 | OP.EGD_ITS ---
Patient Name: Kori Patel Procedure Date: 03/31/2025 7:26 AM Date of : 1975 Age: 49 Procedure: Upper GI endoscopy Indications: Epigastric abdominal pain, Functional Dyspepsia Providers: Abran Munoz DO Medicines: Monitored Anesthesia Care Patient Profile: This is a 49 year old female. Refer to note in patient chart for documentation of history and physical. Patient has symptoms of acute abdominal cramping, acute right upper quadrant abdominal pain, chronic left lower quadrant abdominal pain, chronic epigastric abdominal pain, acute dyspepsia and chronic nausea. Complications: No immediate complications. Procedure: Pre-Anesthesia Assessment: - Prior to the procedure, a History and Physical was performed, and patient medications and allergies were reviewed. The patient is competent. The risks and benefits of the procedure and the sedation options and risks were discussed with the patient. All questions were answered and informed consent was obtained. Patient identification and proposed procedure were verified by the physician in the pre-procedure area. Mental Status Examination: alert and oriented. Airway Examination: normal oropharyngeal airway and neck mobility. Respiratory Examination: clear to auscultation. CV Examination: normal. ASA Grade Assessment: II - A patient with mild systemic disease. After reviewing the risks and benefits, the patient was deemed in satisfactory condition to undergo the procedure. The anesthesia plan was to use monitored anesthesia care (MAC). Immediately prior to administration of medications, the patient was re-assessed for adequacy to receive sedatives. The heart rate, respiratory rate, oxygen saturations, blood pressure, adequacy of pulmonary ventilation, and response to care were monitored throughout the procedure. The physical status of the patient was re-assessed after the procedure. After obtaining informed consent, the endoscope was passed under direct vision. Throughout the procedure, the patient's blood pressure, pulse, and oxygen saturations were monitored continuously. The Colonoscope was introduced through the mouth, and advanced to the third part of the duodenum. Small bowel enteroscopy was deemed necessary. The upper GI endoscopy was accomplished without difficulty. The patient tolerated the procedure well. Scope In: 7:37:12 AM Scope Out: 7:43:38 AM Total Procedure Duration Time 0 hours 6 minutes 26 seconds Findings: The examined esophagus was normal. Diffuse mildly congested mucosa was found in the gastric body. Biopsies were taken with a cold forceps for histology. Biopsies were taken with a cold forceps for Helicobacter pylori testing. Verification of patient identification for the specimen was done. Estimated blood loss was minimal. A few 5 mm sessile polyps with no stigmata of recent bleeding were found in the cardia. Biopsies were taken with a cold forceps for histology. Verification of patient identification for the specimen was done. Estimated blood loss was minimal. Patchy mildly erythematous mucosa without active bleeding and with no stigmata of bleeding was found in the entire duodenum. Impression: - Normal esophagus. - Congestive gastropathy. Biopsied. - A few gastric polyps. Biopsied. - Erythematous duodenopathy. Recommendation: - Discharge patient to home. - Resume previous diet. - Continue present medications. - Await pathology results. Procedure Code(s): --- Professional --- 63720, Small intestinal endoscopy, enteroscopy beyond second portion of duodenum, not including ileum; with biopsy, single or multiple CPT copyright 2021 [employer]. All rights reserved. The codes documented in this report are preliminary and upon abrasive grinder review may be revised to meet current compliance requirements. Abran Munoz DO 03/31/2025 8:06:04 AM This report has been signed electronically. Number of Addenda: 0 Note Initiated On: 03/31/2025 7:26 AM
--- NOTE | 2025-03-31 08:06 | OP.PROVAT_ITS ---
03/31/2025 No Primary Care Physician Re : Upper GI endoscopy procedure for Kori Patel Dear Care Physician This procedure was performed on March. My impressions and recommendations are as follows: Impressions : - Normal esophagus. - Congestive gastropathy. Biopsied. - A few gastric polyps. Biopsied. - Erythematous duodenopathy. Recommendations : - Discharge patient to home. - Resume previous diet. - Continue present medications. - Await pathology results. My findings are described in the full procedure note, which is enclosed. If I can be of further assistance, please feel free to contact me at . Sincerely, Abran Munoz, 03/31/2025 8:06:04 AM This report has been signed electronically.
--- NOTE | 2025-03-31 08:08 | OP.PROVAT_ITS ---
03/31/2025 No Primary Care Physician Re : Colonoscopy procedure for Kori Patel Dear Care Physician This procedure was performed on March. My impressions and recommendations are as follows: Impressions : - The entire examined colon is normal. - No specimens collected. Recommendations : - Discharge patient to home. - Resume previous diet. - Continue present medications. - Repeat colonoscopy in 10 years for screening purposes. My findings are described in the full procedure note, which is enclosed. If I can be of further assistance, please feel free to contact me at . Sincerely, Abran Munoz, 03/31/2025 8:07:56 AM This report has been signed electronically.
--- NOTE | 2025-03-31 08:08 | OP.COLON_ITS ---
Patient Name: Kori Patel Procedure Date: 03/31/2025 7:44 AM Date of : 1975 Age: 49 Procedure: Colonoscopy Indications: Screening for colorectal malignant neoplasm Providers: Abran Munoz DO Medicines: Monitored Anesthesia Care Patient Profile: This is a 49 year old female. Refer to note in patient chart for documentation of history and physical. Patient has symptoms of acute abdominal cramping, acute right upper quadrant abdominal pain, chronic left lower quadrant abdominal pain, chronic epigastric abdominal pain, acute dyspepsia and chronic nausea. Last Colonoscopy: none. The patient's first colonoscopy is today. Complications: No immediate complications. Procedure: Pre-Anesthesia Assessment: - Prior to the procedure, a History and Physical was performed, and patient medications and allergies were reviewed. The patient is competent. The risks and benefits of the procedure and the sedation options and risks were discussed with the patient. All questions were answered and informed consent was obtained. Patient identification and proposed procedure were verified by the physician in the pre-procedure area. Mental Status Examination: alert and oriented. Airway Examination: normal oropharyngeal airway and neck mobility. Respiratory Examination: clear to auscultation. CV Examination: normal. ASA Grade Assessment: II - A patient with mild systemic disease. After reviewing the risks and benefits, the patient was deemed in satisfactory condition to undergo the procedure. The anesthesia plan was to use monitored anesthesia care (MAC). Immediately prior to administration of medications, the patient was re-assessed for adequacy to receive sedatives. The heart rate, respiratory rate, oxygen saturations, blood pressure, adequacy of pulmonary ventilation, and response to care were monitored throughout the procedure. The physical status of the patient was re-assessed after the procedure. After I obtained informed consent, the scope was passed under direct vision. Throughout the procedure, the patient's blood pressure, pulse, and oxygen saturations were monitored continuously. The Colonoscope was introduced through the anus and advanced to the cecum, identified by appendiceal orifice and ileocecal valve. The colonoscopy was performed without difficulty. The patient tolerated the procedure well. The quality of the bowel preparation was adequate. The ileocecal valve, appendiceal orifice, and rectum were photographed. Scope In: 7:45:16 AM Scope Withdrawal Time 0 hours 8 minutes 32 seconds Scope Out: 7:57:10 AM Total Procedure Duration Time 0 hours 11 minutes 54 seconds Findings: The perianal and digital rectal examinations were normal. The colon (entire examined portion) appeared normal. No additional abnormalities were found on retroflexion. Impression: - The entire examined colon is normal. - No specimens collected. Recommendation: - Discharge patient to home. - Resume previous diet. - Continue present medications. - Repeat colonoscopy in 10 years for screening purposes. Procedure Code(s): --- Professional --- G0121, Colorectal cancer screening; colonoscopy on individual not meeting criteria for high risk CPT copyright 2021 [employer]. All rights reserved. The codes documented in this report are preliminary and upon scraper operator review may be revised to meet current compliance requirements. Abran Munoz DO 03/31/2025 8:07:56 AM This report has been signed electronically. Number of Addenda: 0 Note Initiated On: 03/31/2025 7:44 AM
--- NOTE | 2025-03-31 08:09 | PCM.POST.ANE ---
Anesthesia: Postop Eval I Current Vital Signs Temperature: 97.8 F Pulse Rate: 67 Blood Pressure: 95/71 Respiratory Rate: 16 Pulse Ox: 98 Oxygen Delivery Method: Room Air Assessment Airway patent: Yes Spontaneous unlabored respirations: Yes Mental status: Asleep nausea: No Vomiting: No Anesthesia Complication: No Fluid Hydration Crystalloid volume administer (ml): 600 Total IV fluid infused: 600 Progress Note Anesthesia document: Postop Eval 1 completed: Yes
--- NOTE | 2025-03-31 14:18 | PCM.POSTANE2 ---
Anesthesia Postop Eval I Sum Postop Eval Completion status Anesthesia document: Postop Eval 1 completed: Yes Anesthesia Postop Eval I Summary Anesthesia Postop Eval I Summary: Anesthesia Postop Eval I: Assessment Summary Airway patent Yes 03/31/25 08:10 [email or web address] Spontaneous unlabored Yes 03/31/25 08:10 [email or web address] respirations Mental status Asleep 03/31/25 08:10 [email or web address] nausea No 03/31/25 08:10 [email or web address] Vomiting No 03/31/25 08:10 [email or web address] Anesthesia Postop Eval I: Fluid Summary Crystalloid volume administer 600 03/31/25 08:10 [email or web address] (ml) Colloids volume administered ( ml) Blood Product volume administered (ml) Total IV fluid infused 600 03/31/25 08:10 [email or web address] Anesthesia Postop Eval I: Summary Notes Anesthesia Complication No 03/31/25 08:10 [email or web address] Anesthesia Complication Comment: Post-operative progress note Anesthesia: Postop Eval II Evaluation Mental status: Awake and Calm Pain Level: 1 nausea: No Vomiting: No Complications Anesthesia Complication: No
== END 2025-03-31 09:23 | disposition home or self-care (01) ==
LOC: EN 06:24 → AC 06:28
PROVIDERS: Anesthesiology; Visit Provider Internal Medicine Gastroenterology
PROC: 0DJD8ZZ Inspection of Lower Intestinal Tract, Via Natural or Artificial Opening Endoscopic (ICD-10-PCS; CPT 45378; principal; 2025-03-31 06:55)
DX: Z12.11 Encounter for screening for malignant neoplasm of colon (principal); K21.9 Gastro-esophageal reflux disease without esophagitis; K31.7 Polyp of stomach and duodenum; R10.13 Epigastric pain; Z79.899 Other long term (current) drug therapy; Z90.49 Acquired absence of other specified parts of digestive tract; R11.0 Nausea; K29.50 Unspecified chronic gastritis without bleeding; A04.8 Other specified bacterial intestinal infections
CPT/HCPCS: 44361; 45378; 81025; 88305; J2405